=== PATIENT | male | born 1970 | race Hispanic/Latino ===

== ENCOUNTER 2017-09-06 08:12 | Emergency (ER) | payer MEDICARE ==
[2017-09-06 08:26] VITALS: BP 139/97
--- NOTE | 2017-09-06 09:03 | XRay Report ---
RIGHT SHOULDER, 3 VIEWS: HISTORY: right shoulder pain. Normal bone mineralization. No acute osseous injury or joint pathology is detected. The soft tissues are unremarkable. IMPRESSION: Right shoulder within normal limits.
[2017-09-06] MEDS ORDERED: MOTRIN ONE (11:14)
[2017-09-06] MEDS ORDERED: MOTRIN PO ONE (11:17)
--- NOTE | 2017-09-06 12:04 | Emergency Department Report ---
Upper Extremity - HPI Chief Complaint: Extremity Injury, Upper Stated Complaint: RIGHT SHOULDER INJURY Time Seen by Provider: 09/06/17 12:03 Upper Extremity: Right Shoulder (injury,pain) Occurred When: 1 Day Mechanism: Hyperextension, Twist Severity: severe Symptoms: Yes Pain with Movement (10/10, achy, right shoulder), Yes Limited Range of Movement (problems it rotated shoulder), No Deformity, No Numbness, No Weakness, No Swelling, No Bruising/Ecchymosis, No Laceration or Abrasion Other History: This is a 47-year-old male who presents at emergency room report that on 09/05/2017 he was throwing a can and he really hard and he started having pain in his right shoulder that radiated into his right neck. Pain is 10 out of 10 with movement but no pain without movement. Pain is achy. Denies headache. Denies any weakness, numbness or tingling to the distally. Patient with a history of diabetes GERD, PTSD, major depression, bipolar and has a history of right groin surgery. Denies any fever or chills. Denies any nausea or vomiting. Denies any chest pain or shortness of breath. He said he took lcyk-cal-hazpekw pain medication but it didn't help. ED Review of Systems ROS: Stated complaint: RIGHT SHOULDER INJURY Other details as noted in HPI Constitutional: denies: chills, fever Eyes: denies: eye pain, eye discharge ENT: denies: ear pain, throat pain Respiratory: denies: cough, shortness of breath, SOB with exertion, SOB at rest , stridor, wheezing Cardiovascular: denies: chest pain, palpitations, edema, syncope Gastrointestinal: denies: nausea, vomiting Musculoskeletal: arthralgia. denies: back pain, joint swelling, myalgia Skin: denies: rash, lesions Neurological: denies: headache, weakness, numbness, paresthesias ED Past Medical Hx - Past Medical History Previous Medical History?: Yes Hx Hypertension: No Hx Diabetes: No Hx GERD: Yes Hx Liver Disease: No Hx Renal Disease: No Hx Seizures: No Hx Psychiatric Treatment: Yes (PTSD (on disability for this),major depression, bipolar.) Additional medical history: pluerisy - Surgical History Past Surgical History?: Yes Additional Surgical History: groin sgx. - Family History Family history: hypertension - Social History Smoking Status: Former Smoker Substance Use Type: None - Medications Home Medications: Home Medications Medication Instructions Recorded Confirmed Last Taken Type Bactrim DS 1 tab PO BID 07/03/14 07/03/14 Unknown History Zantac 150 mg PO BID 07/03/14 07/03/14 Unknown History Zoloft 50 mg PO DAILY 07/03/14 07/03/14 Unknown History Effexor XR 37.5 mg PO DAILY 11/19/14 11/19/14 Unknown History Ranitidine HCl 150 mg PO BID 11/19/14 11/19/14 Unknown History Wellbutrin 150 mg PO DAILY 11/19/14 11/19/14 Unknown History Amoxicillin/K Clav Tab [Augmentin 1 tab PO Q12HR #20 tab 04/12/17 Unknown Rx 875 mg] Ibuprofen [Motrin] 600 mg PO Q8H PRN #15 tablet 09/06/17 Unknown Rx traMADol [Ultram 50 MG tab] 50 mg PO Q6HR PRN #12 tablet 09/06/17 Unknown Rx Upper Extremity Exam - Exam General: Vital signs noted. No distress. Alert and acting appropriately. This is a 47-year-old male well-nourished well-developed in no acute distress. Head and Torso: No HEENT Abnormality, No Neck Tenderness, No Chest/Lungs Abnormality, No Abdominal Tenderness, No Back Tenderness Shoulder Exam: Yes Shoulder Tenderness (tender to palpate the right shoulder.), Yes Normal Range of Motion in Shoulder (patient has full range of motion but he reports pain with rotating shoulder.), No Clavicle Tenderness, No Shoulder Deformity, No AC Joint Tenderness Arm Exam: No Arm/Humerus Tenderness, No Arm Deformity Elbow: Yes Normal Range of Motion in Elbow, No Elbow Tenderness, No Elbow Deformity Forearm: No Forearm Tenderness, No Forearm Deformity, No Pain with Pronation, No Pain with Supination Wrist: Yes Normal ROM in Wrist, No Wrist Tenderness, No Wrist Deformity, No Snuffbox Tenderness, No Pain with Axial Thumb Compression Hand: Yes Digit Tenderness, Yes Normal ROM in Digit(s), No Hand Tenderness, No Hand Deformity, No Digit(s) Deformity, No Tendon Dysfunction CMS Exam: Yes Normal Distal Pulses (radial and ulnar pulses bilaterally 2+ Dilantin), Yes Normal Capillary Refill (less than 3 seconds), Yes Normal Distal Sensation (no motor or sensory deficit), No Broken Skin ED Course Vital Signs 09/06/17 08:21 Temperature 98.5 F Pulse Rate 64 Respiratory 20 Rate Blood Pressure 139/97 O2 Sat by Pulse 100 Oximetry - Reevaluation(s) Reevaluation #1: 09/06/17 13:25 She received Motrin 800 mg at first which she said didn't help so he received [place] 5/325 2 tablets by mouth which helped his pain and he was given a shoulder sling. referred to procedure note for details - Orthopedic Splinting/Casting Injury #1 Side: right Upper Extremity Injury Location: shoulder Upper Extremity Immobilizer: sling/shoulder immobilize Additional Comments: Radial and ulnar pulses 2+ bilaterally. Patient with good color, sensation, movement and temperature to bilateral upper extremity ED Medical Decision Making - Radiology Data Radiology results: report reviewed Patient had x-ray two-view right shoulder which was dictated by radiologist and report reviewed by myself and shows no acute findings. See details of report below Patient: PA MUÑIZ MR#: [id number] : 1970 Acct:[id number] Age/Sex: 47 / M ADM Date: 09/06/17 Loc: ED Attending Dr: Ordering Physician: KEL BETTS Date of Service: 09/06/17 Procedure(s): XR shoulder 2+V RT Accession Number(s): [id number] cc: KEL BETTS Fluoro Time In Minutes: RIGHT SHOULDER, 3 VIEWS: HISTORY: right shoulder pain. Normal bone mineralization. No acute osseous injury or joint pathology is detected. The soft tissues are unremarkable. IMPRESSION: Right shoulder within normal limits. Transcribed By: TTR Dictated By: MILVIA SHEN JR, MD Electronically Authenticated By: MILVIA SHEN JR, MD Signed Date/Time: 09/06/17851 DD/ 1 TD/TT: 09/06/17851 - Medical Decision Making This is a 47-year-old male here reported that she injured his right shoulder yesterday after throwing can. He said he threw the can really hard and he felt a pop. He is reporting pain does radiate up his neck from his shoulder joint. He is not having any other symptoms. He took [id number] medication but it didn't help so he is here to be evaluated This patient was seen by myself and examined . Patient with full range of motion to shoulders etc. he has pain rotating his right shoulder otherwise exam is normal. X-ray two-view right shoulder dictated by radiologist and report reviewed by myself and shows no acute bony abnormality. This was discussed with patient and he voiced understanding. Patient to follow-up with orthopedic and his pain is controlled with medication A/P 1: Shoulder sprain, right-referral to orthopedic doctor, shoulder sling placed to right shoulder. Rice therapy explained 2: Right shoulder arthralgia-patient given Motrin 800 mg by mouth and then [place] 5/325 2 tablets by mouth because he said the Motrin didn't help. Pain is now controlled. He'll be discharged home on Ultram and Motrin Prescription given for Motrin and Ultram as needed Patient educated on medication, Rice therapy, diagnosis, x-ray reports and treatment plan and if he continues to have pain she needs to follow-up with orthopedic doctor. Patient discharged home in stable condition with his family member to follow up with orthopedic doctor in 2-3 days and/or to return to the emergency room if her condition worsens. His vital signs are stable and afebrile. Patient is feeling better. I discussed with him that if his condition worsens to return to the emergency room otherwise follow-up with orthopedic doctor and he voiced understanding. - Differential Diagnosis shoulder fracture, rotator cuff injury, shoulder sprain, musculoskeletal pa Critical care attestation.: If time is entered above; I have spent that time in minutes in the direct care of this critically ill patient, excluding procedure time. ED Disposition Clinical Impression: Arthralgia of right shoulder region Sprain of shoulder, right Qualifiers: Encounter type: initial encounter Shoulder sprain type: unspecified sprain Qualified Code(s): S43.401A - Unspecified sprain of right shoulder joint, initial encounter Disposition: TO HOME OR SELFCARE Is pt being admited?: No Does the pt Need Aspirin: No Condition: Stable Instructions: Musculoskeletal Pain (ED), RICE Therapy (ED), Shoulder Sprain (ED ) Additional Instructions: Please follow up with orthopedic doctor in 2-[address] heavy machinery while taking Ultram and take this medication for severe pain. This medication causes drowsiness Take Motrin for moderate pain See discharge instruction in Rice therapy Prescriptions: Ibuprofen [Motrin] 600 mg PO Q8H PRN #15 tablet PRN Reason: mild to moderate pain traMADol [Ultram 50 MG tab] 50 mg PO Q6HR PRN #12 tablet PRN Reason: Pain , Severe (7-10) Referrals: PRIMARY CARE, [Primary Care Provider] - 2-3 Days EBEN WALKER MD [Staff Physician] - 2-3 Days Forms: Accompanied Note
[2017-09-06] MEDS ORDERED: NORCO 5/325 PO ONE (12:13)
== END 2017-09-06 13:45 | disposition home or self-care (01) ==
LOC: ED 08:12
DX: S43.401A Unspecified sprain of right shoulder joint, initial encounter (principal); K21.9 Gastro-esophageal reflux disease without esophagitis; F31.9 Bipolar disorder, unspecified; Z87.891 Personal history of nicotine dependence; X58.XXXA Exposure to other specified factors, initial encounter; Y93.89 Activity, other specified; Y99.8 Other external cause status; Y92.89 Other specified places as the place of occurrence of the external cause

== ENCOUNTER 2017-09-07 21:49 | Emergency (ER) | payer MEDICARE ==
[2017-09-07] MEDS ORDERED: NACL 0.9% 1000 ML 1,000 ML IV ONE (22:59)
[2017-09-08 00:01] LABS: Bacteria,Urine 1+ /HPF (Negative); Bilirubin,Urine NEG (Negative); Blood,Urine NEG (Negative); Color,Urine Yellow (Yellow); Mucus,Urine FEW /HPF; Protein,Urine <15 mg/dL mg/dL (Negative); Urobilinogen,Urine < 2.0 mg/dL (<2.0)
[2017-09-08 00:08] LABS: Amphetamine Screen,Urine PRESUMPTIVE NEGATIVE; Benzodiazepines Screen,Urine PRESUMPTIVE NEGATIVE; Cannabinoid Screen,Urine PRESUMPTIVE NEGATIVE; Opiate Screen,Urine PRESUMPTIVE NEGATIVE
[2017-09-08 00:26] LABS: Cocaine Screen,Urine PRESUMPTIVE POSITIVE; Methadone Screen,Urine PRESUMPTIVE POSITIVE
[2017-09-08 00:40] LABS: Basophils # (Auto) 0.1 K/mm3 (0.0-0.1); Basophils % (Auto) 0.9 % (0.0-1.8); Eosinophils % (Auto) 0.5 % (0.0-4.3); Hematocrit 42.8 % (35.5-45.6); Hemoglobin 14.4 gm/dl (11.8-15.2); Lymphocytes % (Auto) 20.2 % (13.4-35.0); Mean Corpuscular HGB Conc 34 % (32-34); Mean Corpuscular Hemoglobin 28 pg (28-32); Mean Corpuscular Volume 84 fl (84-94); Monocytes # (Auto) 0.6 K/mm3 (0.0-0.8); Monocytes % (Auto) 6.6 % (0.0-7.3); Platelet Count 221 K/mm3 (140-440); Red Blood Count 5.12 M/mm3 (3.65-5.03); Red Cell Distribution Width 15.1 % (13.2-15.2)
[2017-09-08 00:43] VITALS: BP 132/93
[2017-09-08 00:57] LABS: INR 0.9 (0.87-1.13)
[2017-09-08 00:58] LABS: Partial Thromboplastin Time 27.2 Sec. (24.2-36.6)
--- NOTE | 2017-09-08 01:33 | Emergency Department Report ---
ED General Adult HPI - General Chief complaint: Weakness Stated complaint: CHEST PAIN Time Seen by Provider: 09/07/17 21:59 Source: patient Mode of arrival: Ambulatory Limitations: No Limitations - History of Present Illness Initial comments: Disposition Orellana promising that he does not feel well. Patient took 12 tablets of Ultram over the last 8 hours along with taking a gram of cocaine and drinking a beer. Patient states that he is not suicidal or homicidal and did this to get high. Patient has no other complaints and denies chest pain, abdominal pain, headache. Severity scale (0 -10): 0 Improves with: none Worsens with: none Associated Symptoms: denies other symptoms Treatments Prior to Arrival: none - Related Data Home Medications Medication Instructions Recorded Confirmed Last Taken No Known Home Medications [No 09/07/17 09/07/17 Unknown Reported Home Medications] Allergies Allergy/AdvReac Type Severity Reaction Status Date / Time aripiprazole [From Abilify] Allergy Unknown Verified 09/06/17 12:14 fluphenazine enanthate Allergy Unknown Verified 09/06/17 12:14 [From Prolixin] fluphenazine HCl Allergy Unknown Verified 09/06/17 12:14 [From Prolixin] haloperidol [From Haldol] Allergy Unknown Verified 09/06/17 12:14 haloperidol lactate Allergy Unknown Verified 09/06/17 12:14 [From Haldol] olanzapine [From Zyprexa] Allergy Unknown Verified 09/06/17 12:14 Penicillins Allergy Unknown Verified 09/06/17 12:14 ziprasidone HCl [From Geodon] Allergy Unknown Verified 09/06/17 12:14 ziprasidone mesylate Allergy Unknown Verified 09/06/17 12:14 [From Geodon] ED Review of Systems ROS: Stated complaint: CHEST PAIN Other details as noted in HPI Comment: All other systems reviewed and negative Constitutional: denies: chills, fever Eyes: denies: eye pain, eye discharge, vision change ENT: denies: ear pain, throat pain Respiratory: denies: cough, shortness of breath, wheezing Cardiovascular: denies: chest pain, palpitations Endocrine: no symptoms reported Gastrointestinal: denies: abdominal pain, nausea, diarrhea Genitourinary: denies: urgency, dysuria Musculoskeletal: denies: back pain, joint swelling, arthralgia Skin: denies: rash, lesions Neurological: denies: headache, weakness, paresthesias Psychiatric: denies: anxiety, depression Hematological/Lymphatic: denies: easy bleeding, easy bruising ED Past Medical Hx - Past Medical History Previous Medical History?: Yes Hx Hypertension: No Hx Diabetes: No Hx GERD: Yes Hx Liver Disease: No Hx Renal Disease: No Hx Seizures: No Hx Psychiatric Treatment: Yes (PTSD (on disability for this),major depression, bipolar.) Additional medical history: pluerisy - Surgical History Past Surgical History?: Yes Additional Surgical History: groin sgx. - Social History Smoking Status: Smoker, Current Status Unknown Substance Use Type: Cocaine - Medications Home Medications: Home Medications Medication Instructions Recorded Confirmed Last Taken Type No Known Home Medications [No 09/07/17 09/07/17 Unknown History Reported Home Medications] ED Physical Exam - General Limitations: No Limitations General appearance: alert, in no apparent distress - Head Head exam: Present: atraumatic, normocephalic - Eye Eye exam: Present: normal appearance - ENT ENT exam: Present: mucous membranes moist - Neck Neck exam: Present: normal inspection - Respiratory Respiratory exam: Present: normal lung sounds bilaterally. Absent: respiratory distress, wheezes, rales, rhonchi - Cardiovascular Cardiovascular Exam: Present: regular rate, normal rhythm. Absent: systolic murmur, diastolic murmur, rubs, gallop - GI/Abdominal GI/Abdominal exam: Present: soft, normal bowel sounds. Absent: distended, tenderness - Rectal Rectal exam: Present: deferred - Extremities Exam Extremities exam: Present: normal inspection - Back Exam Back exam: Present: normal inspection - Neurological Exam Neurological exam: Present: alert, oriented X3, CN II-XII intact. Absent: motor sensory deficit - Psychiatric Psychiatric exam: Present: normal affect, normal mood - Skin Skin exam: Present: warm, dry, intact, normal color. Absent: rash ED Course Vital Signs 09/07/17 09/07/17 09/08/17 22:14 23:46 00:42 Temperature 98.0 F 97.3 F L Pulse Rate 81 80 62 Respiratory 18 18 Rate Blood Pressure 125/92 Blood Pressure 125/92 132/93 [Left] O2 Sat by Pulse 98 98 Oximetry ED Medical Decision Making - Lab Data Result diagrams: 09/08/17 00:06 09/08/17 00:06 - EKG Data EKG shows normal: sinus rhythm Rate: normal - EKG Data Interpretation: nonspecific ST-T wave wanda - Medical Decision Making Discussed results with the patient Spoke with patient about his combination of cocaine, Ultram, and beer not be in a good choice Critical care attestation.: If time is entered above; I have spent that time in minutes in the direct care of this critically ill patient, excluding procedure time. ED Disposition Clinical Impression: Cocaine abuse, Misuse of prescription only drugs Disposition: DC-01 TO HOME OR SELFCARE Is pt being admited?: No Does the pt Need Aspirin: No Condition: Stable Instructions: Polysubstance Abuse (ED) Referrals: PRIMARY CAREMD [Primary Care Provider] - 3-[address] [facility] [place] [Outside] - 3-5 Days [facility] [Outside] - 3-5 Days TRAVIS MINOR MD [Staff Physician] - 3-5 Days Time of Disposition: 02:06
[2017-09-08 01:36] LABS: Alanine Aminotransferase 25 units/L (7-56); Albumin 3.4 g/dL (3.9-5); BUN/Creatinine Ratio 13; Blood Urea Nitrogen 10 mg/dL (9-20); Hemolysis Index 6
== END 2017-09-08 02:51 | disposition home or self-care (01) ==
LOC: ED 21:49
DX: T40.4X1A Poisoning by other synthetic narcotics, accidental (unintentional), initial encounter (principal); F14.10 Cocaine abuse, uncomplicated; K21.9 Gastro-esophageal reflux disease without esophagitis; F32.9 Major depressive disorder, single episode, unspecified; F17.200 Nicotine dependence, unspecified, uncomplicated; Z88.8 Allergy status to other drugs, medicaments and biological substances; Z88.0 Allergy status to penicillin; Y92.89 Other specified places as the place of occurrence of the external cause
CPT/HCPCS: 36415; 80053; 80307; 81001; 85025; 85610; 85730; 93005; 93010; 99283; G0480; J7030; 80320

== ENCOUNTER 2018-12-15 04:15 | Observation (INO) | payer MEDICARE ==
[2018-12-15] MEDS ORDERED: SODIUM CHLORIDE 0.9% 500 ML 500 ML IV ONE (04:44)
[2018-12-15] MEDS ORDERED: ONDANSETRON 4 MG/2 ML INJ IV ONE (04:45)
[2018-12-15] MEDS ORDERED: PANTOPRAZOLE 40 MG INJ IV ONE (04:45)
[2018-12-15] MEDS ORDERED: MORPHINE 4 MG/1 ML INJ IV ONE (04:45)
--- NOTE | 2018-12-15 04:53 | Emergency Department Report ---
<OLINDA DUNN - Last Filed: 12/15/18 06:15> ED N/V/D HPI - General Chief complaint: GI Bleed Stated complaint: VOMITING Time Seen by Provider: 12/15/18 04:37 Source: patient Mode of arrival: Ambulatory Limitations: No Limitations - History of Present Illness Initial comments: Mr. Muñiz is a 48-year-old male with a history of esophagitis, PTSD, pleurisy who presents with heartburn, stomach upset, dark emesis just prior to arrival. Symptoms occurred during the morning 1.5 half hours ago. Mother contacted EMS. He vomited " pure Black". No gross blood. No previous history of GI bleed or transfusion. Recently several weeks ago, he had upper endoscopy performed at [facility]. Upper endoscopy revealed "swollen esophagus". Colonoscopy inconclusive according to his report. Since discharge from [facility], he has had benign diet mostly consisting of salads. Currently his stomach just feels raw. Upper endoscopy report, procedure performed July 2013, diagnoses: Non-erosive reflux disease, hiatus hernia, gastritis MD complaint: nausea, vomiting, abdominal pain -: Gradual, This morning Description of Vomiting: other (dark emesis) Associated Abdominal Pain: Yes Severity: moderate Quality: cramping Consistency: constant Improves with: none Worsens with: none Context: recent surgery/procedure (upper and lower endoscopy at [facility]), other (denies use of NSAIDs or aspirin) Associated Symptoms: denies other symptoms - Related Data Home Medications Medication Instructions Recorded Confirmed Last Taken No Known Home Medications [No 09/07/17 09/07/17 Unknown Reported Home Medications] Allergies Allergy/AdvReac Type Severity Reaction Status Date / Time aripiprazole [From Abilify] Allergy Unknown Verified 09/06/17 12:14 fluphenazine enanthate Allergy Unknown Verified 09/06/17 12:14 [From Prolixin] fluphenazine HCl Allergy Unknown Verified 09/06/17 12:14 [From Prolixin] haloperidol [From Haldol] Allergy Unknown Verified 09/06/17 12:14 haloperidol lactate Allergy Unknown Verified 09/06/17 12:14 [From Haldol] metoclopramide [From Reglan] Allergy Vomiting Verified 12/15/18 08:27 olanzapine [From Zyprexa] Allergy Unknown Verified 09/06/17 12:14 Penicillins Allergy Unknown Verified 09/06/17 12:14 ziprasidone HCl [From Geodon] Allergy Unknown Verified 09/06/17 12:14 ziprasidone mesylate Allergy Unknown Verified 09/06/17 12:14 [From Geodon] ED Review of Systems Comment: All other systems reviewed and negative Constitutional: denies: fever, malaise Cardiovascular: denies: chest pain Gastrointestinal: abdominal pain, nausea, vomiting ED Past Medical Hx - Past Medical History Previous Medical History?: Yes Hx Hypertension: No Hx Diabetes: No Hx GERD: Yes Hx Liver Disease: No Hx Renal Disease: No Hx Seizures: No Hx Psychiatric Treatment: Yes (PTSD (on disability for this),major depression, bipolar.) Additional medical history: pleurisy - Surgical History Past Surgical History?: Yes Additional Surgical History: groin sx ? - Social History Smoking Status: Never Smoker Substance Use Type: None - Medications Home Medications: Home Medications Medication Instructions Recorded Confirmed Last Taken Type No Known Home Medications [No 09/07/17 09/07/17 Unknown History Reported Home Medications] ED Physical Exam - General Limitations: No Limitations General appearance: alert, in no apparent distress, other (holding emesis bag containing 2 ounces of green liquid) - Head Head exam: Present: atraumatic, normocephalic - Eye Eye exam: Present: normal appearance - ENT ENT exam: Present: mucous membranes moist - Neck Neck exam: Present: normal inspection, full ROM - Respiratory Respiratory exam: Present: normal lung sounds bilaterally. Absent: respiratory distress, wheezes, rales, rhonchi - Cardiovascular Cardiovascular Exam: Present: regular rate, normal rhythm, normal heart sounds. Absent: systolic murmur, diastolic murmur, rubs, gallop - GI/Abdominal GI/Abdominal exam: Present: soft, normal bowel sounds. Absent: distended, tenderness, guarding, rebound - Rectal Rectal exam: Present: deferred - Extremities Exam Extremities exam: Present: normal inspection - Back Exam Back exam: Present: normal inspection - Neurological Exam Neurological exam: Present: alert, oriented X3 - Psychiatric Psychiatric exam: Present: normal affect, normal mood - Skin Skin exam: Present: warm, dry, intact, normal color. Absent: rash ED Medical Decision Making - Lab Data Result diagrams: 12/15/18 05:06 12/15/18 05:06 Laboratory Results - last 24 hr 12/15/18 12/15/18 05:06 05:06 WBC 20.4 H RBC 5.62 H Hgb 16.5 H Hct 48.7 H MCV 87 MCH 29 MCHC 34 RDW 15.0 Plt Count 261 Sodium 143 Potassium 4.8 Chloride 103.1 Carbon Dioxide 21 L Anion Gap 24 BUN 15 Creatinine 1.2 Estimated GFR > 60 BUN/Creatinine Ratio 13 Glucose 101 H Calcium 9.0 - Medical Decision Making Mr. Eduardo is a 48-year-old male with history of esophagitis, GERD, hiatal hernia who presents with dark emesis and stomach upset. No evidence of upper GI bleed. I did examine the emesis in the bag. No indication of hematemesis. He did not have continued vomiting in the emergency department. He received IV PPI protonix, IV analgesia and IV antiemetic During evaluation, I was informed by nurse that Mr. Muñiz developed right lower quadrant pain. On reexamination he has severe pain on his abdomen. He has vol untary guarding at the right lower quadrant. CBC notable for elevated white count 20,000. Concern for acute appendicitis. CT abdomen and pelvis has been ordered. Additional IV fluid and IV analgesia ordered. My colleague will determine final disposition. ED Disposition Clinical Impression: Acute abdominal pain, Nausea & vomiting, Leukocytosis Disposition: DC-01 TO HOME OR SELFCARE Is pt being admited?: No Does the pt Need Aspirin: No Condition: Fair Referrals: KARMA CESAR MD [Staff Physician] - 3-5 Days TYLER SANDOVAL DO [Staff Physician] - 3-5 Days Forms: Accompanied Note <GILMA THOMAS - Last Filed: 12/15/18 08:48> ED Review of Systems ROS: Stated complaint: VOMITING Other details as noted in HPI ED Course Vital Signs 12/15/18 12/15/18 12/15/18 04:20 04:38 04:46 Temperature 97.4 F L Pulse Rate 107 H 101 H 102 H Respiratory 18 25 H Rate Blood Pressure 125/101 132/102 O2 Sat by Pulse 95 95 Oximetry 12/15/18 12/15/18 12/15/18 05:00 05:16 05:30 Temperature Pulse Rate 98 H 102 H 84 Respiratory 28 H 19 25 H Rate Blood Pressure 132/102 134/85 130/86 O2 Sat by Pulse 94 95 96 Oximetry 12/15/18 12/15/18 12/15/18 05:46 06:00 06:55 Temperature Pulse Rate 93 H 92 H Respiratory 14 30 H 19 Rate Blood Pressure 130/86 131/86 O2 Sat by Pulse 93 93 Oximetry ED Medical Decision Making - Lab Data Result diagrams: 12/15/18 05:06 12/15/18 05:06 - Radiology Data Radiology results: report reviewed (CT abdomen and pelvis, pelvic ultrasound), image reviewed (CT abdomen and pelvis, pelvic ultrasound) [address] [address] Ultrasound Report Signed Patient: PA MUÑIZ MR#: [id number] 27 : 1970 Acct:[id number] Age/Sex: 48 / M ADM Date: 12/15/18 Loc: ED Attending Dr: Ordering Physician: GILMA THOMAS MD Date of Service: 12/15/18 Procedure(s): US abdomen limited Accession Number(s): [id number] cc: GILMA THOMAS MD LIMITED RUQ ABDOMINAL ULTRASOUND INDICATION: Right upper quadrant pain and vomiting for one day. COMPARISON: CT abdomen and pelvis with contrast dated 12/15/2018. FINDINGS: Pancreas: Visualized portions show no significant abnormality. Abdominal Aorta: No significant abnormality. IVC: No significant abnormality. Liver: The liver measures 12.7 cm in length. No significant abnormality. Normal hepatopedal blood flow in the main portal vein. Gallbladder: There is a mild degree of sludge in the gallbladder. No shadowing gallstones are identified. Gallbladder wall thickness measures 2.4 mm.. Bile ducts: No significant abnormality. Common bile duct measures 4.3 mm. Right kidney: No significant abnormality visualized.. Free fluid: None. Additional Findings: None. IMPRESSION: Mild degree of sludge in the gallbladder. No findings to suggest acute cholecystitis.. Signer Name: Ovidio Guajardo Jr, MD Signed: 12/15/2018 8:39 AM Workstation Name: [id number] Transcribed By: TTR Dictated By: OVIDIO GUAJARDO JR, MD Electronically Authenticated By: OVIDIO GUAJARDO JR, MD Signed Date/Time: 12/15/1839 DD/ 6 TD/TT: [address] [address] Cat Scan Report Signed Patient: PA MUÑIZ MR#: [id number] 27 : 1970 Acct:[id number] Age/Sex: 48 / M ADM Date: 12/15/18 Loc: ED Attending Dr: Ordering Physician: Olinda Hsieh MD Date of Service: 12/15/18 Procedure(s): CT abdomen pelvis w con Accession Number(s): [id number] cc: Olinda Hsieh MD CT ABDOMEN AND PELVIS WITH CONTRAST INDICATION / CLINICAL INFORMATION: RLQ pain. TECHNIQUE: Axial CT images were obtained through the abdomen and pelvis after 100 mL Omnipaque [address] scans at this location are performed using CT dose reduction for ALARA by means of automated exposure control. COMPARISON: None available. FINDINGS: LOWER CHEST: No significant abnormality. LIVER: Small cyst in the inferior right lobe. GALLBLADDER: No significant abnormality. BILE DUCTS: No significant abnormality. PANCREAS: No significant abnormality. SPLEEN: No significant abnormality. ADRENALS: No significant abnormality. RIGHT KIDNEY and URETER: No significant abnormality. LEFT KIDNEY and URETER: No significant abnormality. STOMACH and SMALL BOWEL: No significant abnormality. COLON: Mild diverticulosis without acute inflammation. APPENDIX: No significant abnormality. PERITONEUM: No free fluid. No free air. No fluid collection. LYMPH NODES: No significant adenopathy. AORTA and ARTERIES: No significant abnormality. IVC and VEINS: No significant abnormality. URINARY BLADDER: No significant abnormality. REPRODUCTIVE ORGANS: No significant abnormality. ADDITIONAL FINDINGS: None. SKELETAL SYSTEM: No significant abnormality. IMPRESSION: 1. No inflammatory process or bowel obstruction. Normal appendix. 2. No urinary tract stones or hydronephrosis. Signer Name: Jenny Mckay MD Signed: 12/15/2018 6:40 AM Workstation Name: [id number] Transcribed By: DT Dictated By: Rory Mckay MD Electronically Authenticated By: Rory Mckay MD Signed Date/Time: 12/15/18639 DD/ TD/TT: Critical care attestation.: If time is entered above; I have spent that time in minutes in the direct care of this critically ill patient, excluding procedure time. ED Disposition Is pt being admited?: Yes Does the pt Need Aspirin: No Time of Disposition: 08:48 (hospitalist paged)
[2018-12-15 05:25] LABS: Hematocrit 48.7 % (35.5-45.6); Hemoglobin 16.5 gm/dl (11.8-15.2); Mean Corpuscular HGB Conc 34 % (32-34); Mean Corpuscular Volume 87 fl (84-94); Platelet Count 261 K/mm3 (140-440); Red Blood Count 5.62 M/mm3 (3.65-5.03)
[2018-12-15 05:38] LABS: BUN/Creatinine Ratio 13; Blood Urea Nitrogen 15 mg/dL (9-20); Hemolysis Index 3
[2018-12-15] MEDS ORDERED: HYDROmorphone 1 MG/1 ML INJ IV ONE (05:54)
[2018-12-15] MEDS ORDERED: SODIUM CHLORIDE 0.9% 1000 ML 1,000 ML IV ONE (05:57)
[2018-12-15 06:35] LABS: Anisocytosis Few; Basophils % (Manual) 0 % (0.0-1.8); Eosinophils % (Manual) 0 % (0.0-4.3); Platelet Estimate Consistent w Auto; Total Cells Counted 100
--- NOTE | 2018-12-15 06:45 | Cat Scan Report ---
CT ABDOMEN AND PELVIS WITH CONTRAST INDICATION / CLINICAL INFORMATION: RLQ pain. TECHNIQUE: Axial CT images were obtained through the abdomen and pelvis after 100 mL Omnipaque [address] scans at this location are performed using CT dose reduction for ALARA by means of automated exposure control. COMPARISON: None available. FINDINGS: LOWER CHEST: No significant abnormality. LIVER: Small cyst in the inferior right lobe. GALLBLADDER: No significant abnormality. BILE DUCTS: No significant abnormality. PANCREAS: No significant abnormality. SPLEEN: No significant abnormality. ADRENALS: No significant abnormality. RIGHT KIDNEY and URETER: No significant abnormality. LEFT KIDNEY and URETER: No significant abnormality. STOMACH and SMALL BOWEL: No significant abnormality. COLON: Mild diverticulosis without acute inflammation. APPENDIX: No significant abnormality. PERITONEUM: No free fluid. No free air. No fluid collection. LYMPH NODES: No significant adenopathy. AORTA and ARTERIES: No significant abnormality. IVC and VEINS: No significant abnormality. URINARY BLADDER: No significant abnormality. REPRODUCTIVE ORGANS: No significant abnormality. ADDITIONAL FINDINGS: None. SKELETAL SYSTEM: No significant abnormality. IMPRESSION: 1. No inflammatory process or bowel obstruction. Normal appendix. 2. No urinary tract stones or hydronephrosis. Signer Name: Jenny Mckay MD Signed: 12/15/2018 6:40 AM Workstation Name: [id number]
[2018-12-15] MEDS ORDERED: METOCLOPRAMIDE 10 MG/2 ML INJ IV ONE (07:35)
[2018-12-15] MEDS ORDERED: fentaNYL 100 MCG/2 ML INJ IV ONE (07:35)
--- NOTE | 2018-12-15 08:43 | Ultrasound Report ---
LIMITED RUQ ABDOMINAL ULTRASOUND INDICATION: Right upper quadrant pain and vomiting for one day. COMPARISON: CT abdomen and pelvis with contrast dated 12/15/2018. FINDINGS: Pancreas: Visualized portions show no significant abnormality. Abdominal Aorta: No significant abnormality. IVC: No significant abnormality. Liver: The liver measures 12.7 cm in length. No significant abnormality. Normal hepatopedal blood fl ow in the main portal vein. Gallbladder: There is a mild degree of sludge in the gallbladder. No shadowing gallstones are identif ied. Gallbladder wall thickness measures 2.4 mm.. Bile ducts: No significant abnormality. Common bile duct measures 4.3 mm. Right kidney: No significant abnormality visualized.. Free fluid: None. Additional Findings: None. IMPRESSION: Mild degree of sludge in the gallbladder. No findings to suggest acute cholecystitis.. Signer Name: Ovidio Guajardo Jr, MD Signed: 12/15/2018 8:39 AM Workstation Name: [id number]
--- NOTE | 2018-12-15 10:06 | History and Physical Report ---
History of Present Illness Date of examination: 12/15/18 Date of admission: 12/15/18 08:51 Chief complaint: Coffee ground emesis/nausea vomiting/abdominal pain History of present illness: 48-year-old male pt with a history of esophagitis, PTSD, presented to the [facility] room with abdominal pain nausea vomiting, coffee-ground emesis multiple times this morning prior to arrival. Mother called EMS. Patient had no symptoms in the past, seen GI doctor Lonnie had EGD which revealed nonerosive reflux disease hiatal hernia and gastritis Patient also had upper endoscopy recently and [facility] a couple of months ago, reports inflamed/swollen esophagus. Colonoscopy per preparation. Patient has intermittent coffee-ground emesis denies hematemesis or melena or r ectal bleeding Complaints of abdominal pain nausea vomiting First set of H&H within normal limits, hemodynamically stable Past History Past Medical History: GERD, other (upper GI bleeding/esophagitis) Past Surgical History: denies: No surgical history Social history: lives with family, smoking (chews tobacco), alcohol abuse, other (cocaine) Family history: hypertension Medications and Allergies Allergies Allergy/AdvReac Type Severity Reaction Status Date / Time aripiprazole [From Abilify] Allergy Unknown Verified 09/06/17 12:14 fluphenazine enanthate Allergy Unknown Verified 09/06/17 12:14 [From Prolixin] fluphenazine HCl Allergy Unknown Verified 09/06/17 12:14 [From Prolixin] haloperidol [From Haldol] Allergy Unknown Verified 09/06/17 12:14 haloperidol lactate Allergy Unknown Verified 09/06/17 12:14 [From Haldol] metoclopramide [From Reglan] Allergy Vomiting Verified 12/15/18 08:27 olanzapine [From Zyprexa] Allergy Unknown Verified 09/06/17 12:14 Penicillins Allergy Unknown Verified 09/06/17 12:14 ziprasidone HCl [From Geodon] Allergy Unknown Verified 09/06/17 12:14 ziprasidone mesylate Allergy Unknown Verified 09/06/17 12:14 [From Geodon] Home Medications Medication Instructions Recorded Confirmed Last Taken Type No Known Home Medications [No 09/07/17 09/07/17 Unknown History Reported Home Medications] Review of Systems Constitutional: no weight loss, no weight gain Ears, nose, mouth and throat: no nasal congestion, no nasal discharge Cardiovascular: no chest pain, no orthopnea Respiratory: no cough, no shortness of breath Gastrointestinal: abdominal pain, nausea, vomiting, diarrhea, coffee ground emesis, no hematemesis, no melena, no hematochezia Genitourinary Male: no dysuria, no hematuria Musculoskeletal: no myalgias, no arthritis Integumentary: no rash, no lesions Neurological: no seizures, no syncope Psychiatric: no anxiety, no depression Endocrine: no cold intolerance, no heat intolerance Hematologic/Lymphatic: no easy bruising, no easy bleeding Allergic/Immunologic: no urticaria, no allergic rhinitis Exam - Constitutional Vitals: Temp Pulse Resp BP Pulse Ox 97.4 F L 77 17 137/69 100 12/15/18 04:20 12/15/18 08:30 12/15/18 08:30 12/15/18 08:30 12/15/18 08:30 General appearance: Present: mild distress, well-nourished - EENT Eyes: Present: PERRL, EOM intact - Neck Neck: Present: supple, normal ROM - Respiratory Respiratory effort: normal Respiratory: bilateral: diminished, negative: rales, rhonchi, wheezing - Cardiovascular Rhythm: regular Heart Sounds: Present: S1 & S2 - Extremities Extremities: no ischemia, No edema - Abdominal General gastrointestinal: Present: soft, non-tender, non-distended, normal bowel sounds - Integumentary Integumentary: Present: clear, warm - Musculoskeletal Musculoskeletal: strength equal bilaterally, generalized weakness - Psychiatric Psychiatric: appropriate mood/affect, cooperative - Neurologic Neurologic: moves all extremities Results - Labs CBC & Chem 7: 12/15/18 05:06 12/15/18 05:06 Labs: Abnormal lab results 12/15/18 12/15/18 Range/Units 05:06 05:06 WBC 20.4 H (4.5-11.0) K/mm3 RBC 5.62 H (3.65-5.03) M/mm3 Hgb 16.5 H (11.8-15.2) gm/dl Hct 48.7 H (35.5-45.6) % Seg Neuts % (Manual) 94.0 H (40.0-70.0) % Lymphocytes % (Manual) 3.0 L (13.4-35.0) % Seg Neutrophils # Man 19.2 H (1.8-7.7) K/mm3 Lymphocytes # (Manual) 0.6 L (1.2-5.4) K/mm3 Carbon Dioxide 21 L (22-30) mmol/L Glucose 101 H (75-100) mg/dL Assessment and Plan --Possible upper GI bleeding/coffee-ground emesis; Clear liquid diet, IV Protonix, GI consult Request medical records from [place] Monitor H&H, transfuse as needed --Abdominal pain; possible colitis In the setting of leukocytosis, possible colitis CT abdomen, ultrasound abdomen no acute abnormalities Empiric antibiotics Levaquin and Flagyl GI consult --Leukocytosis; possible colitis Continue empiric antibiotics Follow clinically --Substance abuse; tobacco, alcohol, cocaine Strongly advised to quit recreational drug use Smoking cessation, advised to quit alcohol intake Monitor for alcohol withdrawal symptoms --DVT prophylaxis; SCD Monitor closely and adjust the management as needed Plan of care is reviewed with the patient and his nurse Follow GI evaluation and recommendations Discharge home when stable
[2018-12-15] MEDS: MORPHINE 2 MG/1 ML INJ IV PRN ×3 (10:20→23:33)
[2018-12-15] MEDS: SODIUM CHLORIDE 0.9% 1000 ML 1,000 ML IV SCH (12:15)
[2018-12-15] MEDS: metroNIDAZOLE/NS 500 MG/100 ML 500 MG/100 ML BAG IV SCH ×2 (14:00→21:14)
[2018-12-15] MEDS ORDERED: PIPERACIL/TAZOBACTA 4.5/NS 100 4.5 GM/100 ML VIAL IV SCH (14:00)
[2018-12-15] MEDS: ONDANSETRON 4 MG/2 ML INJ IV PRN ×3 (14:25→23:33)
--- NOTE | 2018-12-15 20:01 | Gastroenterology Consultation ---
History of Present Illness - Reason for Consult Consult date: 12/15/18 nausea/vomiting/CGE Requesting physician: ALEKSANDR FU - History of Present Illness This is a 48 yo male with h/o alcohol use and GERD admitted for nausea/vomiting and coffee ground emesis since yesterday. He reports having similar symptoms and diarrhea with black stool about 1 month ago and was admitted at [place]. He had EGD, which showed inflammation in the esophagus with swelling. Colonoscopy was incomplete due to poor prep. He reports having been on blend diet since then. Yesterday, he had nausea with multiple episode of vomiting followed by coffee ground material. He denies recurrent diarrhea or constipation. No BM o/n. Reports RUQ abdominal pain. He feels like the vomiting is with food that was ingested the day prior and there is something blocking in the stomach. Denies any NSAID use or marijauna use. Medication list reviewed. Past History Past Medical History: GERD, other (upper GI bleeding/esophagitis) Past Surgical History: denies: No surgical history Social history: lives with family, smoking (chews tobacco), alcohol abuse, other (cocaine) Family history: hypertension Medications and Allergies Allergies Allergy/AdvReac Type Severity Reaction Status Date / Time aripiprazole [From Abilify] Allergy Unknown Verified 09/06/17 12:14 fluphenazine enanthate Allergy Unknown Verified 09/06/17 12:14 [From Prolixin] fluphenazine HCl Allergy Unknown Verified 09/06/17 12:14 [From Prolixin] haloperidol [From Haldol] Allergy Unknown Verified 09/06/17 12:14 haloperidol lactate Allergy Unknown Verified 09/06/17 12:14 [From Haldol] metoclopramide [From Reglan] Allergy Vomiting Verified 12/15/18 08:27 olanzapine [From Zyprexa] Allergy Unknown Verified 09/06/17 12:14 Penicillins Allergy Unknown Verified 09/06/17 12:14 ziprasidone HCl [From Geodon] Allergy Unknown Verified 09/06/17 12:14 ziprasidone mesylate Allergy Unknown Verified 09/06/17 12:14 [From Geodon] Home Medications Medication Instructions Recorded Confirmed Last Taken Type No Known Home Medications [No 09/07/17 09/07/17 Unknown History Reported Home Medications] Active Meds: Active Medications Sodium Chloride (Nacl 0.9% 1000 Ml) 1,000 mls @ 100 mls/hr IV DIRECT GILBERT Last Admin: 12/15/18 12:15 Dose: 100 mls/hr Documented by: Levofloxacin/Dextrose (Levaquin 750mg/150ml) 750 mg in 150 mls @ 100 mls/hr IV Q24HR GILBERT Last Admin: 12/15/18 12:15 Dose: 100 mls/hr Documented by: Metronidazole (Flagyl 500 Mg/100 Ml) 500 mg in 100 mls @ 100 mls/hr IV Q8HR GILBERT; Protocol Morphine Sulfate (Morphine) 2 mg IV Q4H PRN PRN Reason: Pain, Moderate (4-6) Last Admin: 12/15/18 19:30 Dose: 2 mg Documented by: Ondansetron HCl (Zofran) 4 mg IV Q4H PRN PRN Reason: Nausea And Vomiting Last Admin: 12/15/18 19:30 Dose: 4 mg Documented by: Pantoprazole Sodium (Protonix) 40 mg IV QDAY [facility] Review of Systems - Review of Systems All systems: negative Constitutional: weight loss Cardiovascular: no chest pain Gastrointestinal: abdominal pain, nausea, vomiting, coffee ground emesis, no diarrhea, no constipation Neurological: weakness Exam - Constitutional Vital Signs: Temp Pulse Resp BP Pulse Ox 97.9 F 73 18 129/85 83 L 12/15/18 12:01 12/15/18 12:01 12/15/18 12:01 12/15/18 18:21 12/15/18 18:21 General appearance: no acute distress - EENT Eyes: EOM intact ENT: hearing intact - Neck Neck: supple - Respiratory Respiratory effort: normal - Cardiovascular Rhythm: regular Heart Sounds: Present: S1 & S2 - Gastrointestinal General gastrointestinal: Present: soft, tender, non-distended, normal bowel sounds - Integumentary Integumentary: Present: clear, warm - Neurologic Neurological: alert and oriented x3 - Labs CBC & Chem 7: 12/15/18 05:06 12/15/18 05:06 Lab Results: Laboratory Results - last 24 hr 12/15/18 12/15/18 05:06 05:06 WBC 20.4 H RBC 5.62 H Hgb 16.5 H Hct 48.7 H MCV 87 MCH 29 MCHC 34 RDW 15.0 Plt Count 261 Add Manual Diff Complete Total Counted 100 Seg Neuts % (Manual) 94.0 H Band Neutrophils % 0 Lymphocytes % (Manual) 3.0 L Reactive Lymphs % (Man) 0 Monocytes % (Manual) 3.0 Eosinophils % (Manual) 0 Basophils % (Manual) 0 Metamyelocytes % 0 Myelocytes % 0 Promyelocytes % 0 Blast Cells % 0 Nucleated RBC % Not Reportable Seg Neutrophils # Man 19.2 H Band Neutrophils # 0.0 Lymphocytes # (Manual) 0.6 L Abs React Lymphs (Man) 0.0 Monocytes # (Manual) 0.6 Eosinophils # (Manual) 0.0 Basophils # (Manual) 0.0 Metamyelocytes # 0.0 Myelocytes # 0.0 Promyelocytes # 0.0 Blast Cells # 0.0 WBC Morphology Not Reportable Hypersegmented Neuts Not Reportable Hyposegmented Neuts Not Reportable Hypogranular Neuts Not Reportable Smudge Cells Not Reportable Toxic Granulation Not Reportable Toxic Vacuolation Not Reportable Dohle Bodies Not Reportable Pelger-Huet Anomaly Not Reportable Yue Rods Not Reportable Platelet Estimate Consistent w auto Clumped Platelets Not Reportable Plt Clumps, EDTA Not Reportable Large Platelets Not Reportable Giant Platelets Not Reportable Platelet Satelliting Not Reportable Plt Morphology Comment Not Reportable RBC Morphology Not Reportable Dimorphic RBCs Not Reportable Polychromasia Not Reportable Hypochromasia Not Reportable Poikilocytosis Not Reportable Anisocytosis Few Microcytosis Not Reportable Macrocytosis Not Reportable Spherocytes Not Reportable Pappenheimer Bodies Not Reportable Sickle Cells Not Reportable Target Cells Not Reportable Tear Drop Cells Not Reportable Ovalocytes Not Reportable Helmet Cells Not Reportable [place] Bodies Not Reportable [place] Rings Not Reportable Elijah Cells Not Reportable Bite Cells Not Reportable Crenated Cell Not Reportable Elliptocytes Not Reportable Acanthocytes (Spur) Not Reportable Rouleaux Not Reportable Hemoglobin C Crystals Not Reportable Schistocytes Not Reportable Malaria parasites Not Reportable Francis Bodies Not Reportable Hem Pathologist Commnt No Sodium 143 Potassium 4.8 Chloride 103.1 Carbon Dioxide 21 L Anion Gap 24 BUN 15 Creatinine 1.2 Estimated GFR > 60 BUN/Creatinine Ratio 13 Glucose 101 H Calcium 9.0 Assessment and Plan # Intractable nausea/vomiting # Coffee ground emesis # RUQ pain. - recent admission at [place] for similar symptoms. EGD with what sounds like esophagitis. - Normal H/H and elevated wbc - CT a/p without any acute abnormalities. - US with sludge in GB. - currently on empiric abx (unclear given no signs of colitis or diarrhea) - etiology ddx including esophagitis, gastroparesis, vs biliary with sludge. Rec - no plans for endoscopy with normal H/H and report of recent EGD 1 month ago. obtain records from [place]. - cont with supportive care. - antiemetics prn. can add reglan prn. - protonix bid. - add sucralfate. - if symptoms persist, consider surgery consult for CCK. - will follow.
[2018-12-15] MEDS: SUCRALFATE 1 GM/10 ML ORAL LIQD PO SCH (21:13)
[2018-12-15] MEDS: diphenhydrAMINE 50 MG/ML VIAL IV PRN (23:32)
[2018-12-16] MEDS: SODIUM CHLORIDE 0.9% 1000 ML 1,000 ML IV SCH ×2 (02:59→14:12)
[2018-12-16 05:36] LABS: Basophils # (Auto) 0.1 K/mm3 (0.0-0.1); Basophils % (Auto) 1.1 % (0.0-1.8); Eosinophils # (Auto) 0.2 K/mm3 (0.0-0.4); Eosinophils % (Auto) 2.9 % (0.0-4.3); Hematocrit 40.8 % (35.5-45.6); Hemoglobin 13.9 gm/dl (11.8-15.2); Lymphocytes # (Auto) 1.9 K/mm3 (1.2-5.4); Lymphocytes % (Auto) 29.7 % (13.4-35.0); Mean Corpuscular HGB Conc 34 % (32-34); Mean Corpuscular Volume 87 fl (84-94); Monocytes # (Auto) 0.7 K/mm3 (0.0-0.8); Monocytes % (Auto) 10.2 % (0.0-7.3); Platelet Count 191 K/mm3 (140-440); Red Blood Count 4.68 M/mm3 (3.65-5.03); Red Cell Distribution Width 15.3 % (13.2-15.2)
[2018-12-16 05:43] LABS: Alanine Aminotransferase 34 units/L (7-56); Albumin 3.4 g/dL (3.9-5); BUN/Creatinine Ratio 11; Blood Urea Nitrogen 11 mg/dL (9-20); Calcium 7.9 mg/dL (8.4-10.2); Hemolysis Index 5
[2018-12-16] MEDS: metroNIDAZOLE/NS 500 MG/100 ML 500 MG/100 ML BAG IV SCH (05:52)
[2018-12-16] MEDS: SUCRALFATE 1 GM/10 ML ORAL LIQD PO SCH ×4 (08:40→21:33)
[2018-12-16] MEDS: MORPHINE 2 MG/1 ML INJ IV PRN ×3 (08:40→19:47)
[2018-12-16] MEDS: PANTOPRAZOLE 40 MG INJ IV SCH ×2 (12:06→21:33)
--- NOTE | 2018-12-16 13:06 | Discharge Summary ---
Providers - Providers Date of Admission: 12/15/18 08:51 Date of discharge: 12/16/18 Attending physician: ALEKSANDR FU 12/15/18 11:36 Consult to Physician [CONS] Routine Comment: Consulting Provider: AGNES LEROY Physician Instructions: Reason For Exam: h/o coffee ground emesis/abd pain Primary care physician: FIELD SECRETARY Hospitalization Condition: Fair Disposition: DC-01 TO HOME OR SELFCARE Time spent for discharge: 32 min Core Measure Documentation - Palliative Care Palliative Care/ Comfort Measures: Not Applicable - Core Measures Any of the following diagnoses?: none Exam - Constitutional Vitals: Temp Pulse Resp BP Pulse Ox 98.1 F 58 L 20 110/80 98 12/16/18 12:12 12/16/18 12:12 12/16/18 12:12 12/16/18 12:12 12/16/18 12:12 General appearance: Present: no acute distress, well-nourished - EENT Eyes: Present: PERRL, EOM intact - Neck Neck: Present: supple, normal ROM - Respiratory Respiratory effort: normal Respiratory: negative: rales, rhonchi, wheezing - Cardiovascular Rhythm: regular Heart Sounds: Present: S1 & S2 - Extremities Extremities: no ischemia, No edema - Abdominal General gastrointestinal: Present: soft, non-tender, non-distended, normal bowel sounds - Integumentary Integumentary: Present: clear, warm - Musculoskeletal Musculoskeletal: strength equal bilaterally - Psychiatric Psychiatric: appropriate mood/affect, cooperative - Neurologic Neurologic: CNII-XII intact, moves all extremities Plan Activity: no restrictions Diet: other (Diet as tolerated) Additional Instructions: If you notice any GI bleeding contact M.D. or go to emergency room. Advised to quit recreational drug use Follow up with: TYLER SANDOVAL DO [Staff Physician] - 3-5 Days KARMA CESAR MD [Staff Physician] - 3-5 Days AGNES LEROY MD [Staff Physician] - 7 Days Forms: Accompanied Note Prescriptions: Sucralfate [Carafate] 1 gm PO Q6HR #30 tablet Pantoprazole [Protonix] 40 mg PO QDAY #30 tablet Ondansetron [Zofran Odt] 4 mg PO Q8HR #21 tab.shainadis
--- NOTE | 2018-12-16 13:29 | Gastroenterology Progress Note ---
Assessment and Plan GI: pt h/o recent esophagitis now with nausea with eating and noted sludge on ruq ultrasound - continue PPI qd, start Carafate susp qid - soft diet - if tolerating soft diet ok to dc from GI standpoint - if symptoms worsen consider HIDA scan and surgery consult - will follow Subjective Date of service: 12/16/18 Interval history: - reports still w/ some nausea and epigastric pain but improving Objective - Constitutional Vitals: Temp Pulse Resp BP Pulse Ox 98.1 F 58 L 20 110/80 98 12/16/18 12:12 12/16/18 12:12 12/16/18 12:12 12/16/18 12:12 12/16/18 12:12 General appearance: no acute distress - EENT Eyes: PERRL - Respiratory Respiratory: bilateral: CTA - Cardiovascular Rhythm: regular Heart Sounds: Present: S1 & S2 - Gastrointestinal General gastrointestinal: Present: soft, non-tender - Labs CBC & Chem 7: 12/16/18 04:44 12/16/18 04:44 Labs: Laboratory Results - last 24 hr 12/16/18 12/16/18 04:44 04:44 WBC 6.5 RBC 4.68 Hgb 13.9 Hct 40.8 D MCV 87 MCH 30 MCHC 34 RDW 15.3 H Plt Count 191 Lymph % (Auto) 29.7 [place] % (Auto) 10.2 H Eos % (Auto) 2.9 Baso % (Auto) 1.1 Lymph # 1.9 [place] # 0.7 Eos # 0.2 Baso # 0.1 Seg Neutrophils % 56.1 Seg Neutrophils # 3.6 Sodium 141 Potassium 3.8 D Chloride 106.1 Carbon Dioxide 24 Anion Gap 15 BUN 11 Creatinine 1.0 Estimated GFR > 60 BUN/Creatinine Ratio 11 Glucose 90 Calcium 7.9 L Total Bilirubin 0.80 AST 53 H ALT 34 Alkaline Phosphatase 63 Total Protein 5.4 L Albumin 3.4 L Albumin/Globulin Ratio 1.7
[2018-12-16] MEDS: diphenhydrAMINE 50 MG/ML VIAL IV PRN (17:32)
--- NOTE | 2018-12-17 00:23 | Progress Note ---
Assessment and Plan Assessment and plan: --Possible upper GI bleeding/coffee-ground emesis; Clear liquid diet, IV Protonix, GI consult Request medical records from [facility] H&H, transfuse as needed --Right upper Abdominal pain; gallbladder sludge without cholecystitis CT abdomen, ultrasound abdomen no acute abnormalities Clear liquid diet, supportive care, monitor, surgery consult if no improvement --Leukocytosis; possible colitis Continue empiric antibiotics Follow clinically --Substance abuse; tobacco, alcohol, cocaine Strongly advised to quit recreational drug use Smoking cessation, advised to quit alcohol intake Monitor for alcohol withdrawal symptoms --DVT prophylaxis; SCD Monitor closely and adjust the management as needed Plan of care is reviewed with the patient and his nurse Follow GI evaluation and recommendations Discharge home when stable History Interval history: As Patient was feeling better order was given to discharged home However later in the evening patient developed right upper quadrant pain Associated with nausea vomiting, discharge was held. Vital signs reviewed vital Hospitalist Physical - Constitutional Vitals: Temp Pulse Resp BP Pulse Ox 98.4 F 64 18 103/64 96 12/16/18 23:17 12/16/18 23:17 12/16/18 23:17 12/16/18 23:17 12/16/18 23:17 General appearance: Present: mild distress, well-nourished - EENT Eyes: Present: PERRL, EOM intact - Neck Neck: Present: supple, normal ROM - Respiratory Respiratory effort: normal Respiratory: bilateral: diminished, negative: rales, rhonchi, wheezing - Cardiovascular Rhythm: regular Heart Sounds: Present: S1 & S2 - Extremities Extremities: no ischemia, No edema - Abdominal General gastrointestinal: soft, non-tender, tender (right upper quadrant/no guarding no rigidity), normal bowel sounds, no non-distended (right upper quadrant) - Integumentary Integumentary: Present: clear, warm - Psychiatric Psychiatric: appropriate mood/affect, cooperative - Neurologic Neurologic: moves all extremities Results - Labs CBC & Chem 7: 12/16/18 04:44 12/16/18 04:44 Labs: Laboratory Last Values WBC 6.5 K/mm3 (4.5-11.0) 12/16/18 04:44 RBC 4.68 M/mm3 (3.65-5.03) 12/16/18 04:44 Hgb 13.9 gm/dl (11.8-15.2) 12/16/18 04:44 Hct 40.8 % (35.5-45.6) D 12/16/18 04:44 MCV 87 fl (84-94) 12/16/18 04:44 MCH 30 pg (28-32) 12/16/18 04:44 MCHC 34 % (32-34) 12/16/18 04:44 RDW 15.3 % (13.2-15.2) H 12/16/18 04:44 Plt Count 191 K/mm3 (140-440) 12/16/18 04:44 Lymph % (Auto) 29.7 % (13.4-35.0) 12/16/18 04:44 [place] % (Auto) 10.2 % (0.0-7.3) H 12/16/18 04:44 Eos % (Auto) 2.9 % (0.0-4.3) 12/16/18 04:44 Baso % (Auto) 1.1 % (0.0-1.8) 12/16/18 04:44 Lymph # 1.9 K/mm3 (1.2-5.4) 12/16/18 04:44 [place] # 0.7 K/mm3 (0.0-0.8) 12/16/18 04:44 Eos # 0.2 K/mm3 (0.0-0.4) 12/16/18 04:44 Baso # 0.1 K/mm3 (0.0-0.1) 12/16/18 04:44 Add Manual Diff Complete 12/15/18 05:06 Total Counted 100 12/15/18 05:06 Seg Neutrophils % 56.1 % (40.0-70.0) 12/16/18 04:44 Seg Neuts % (Manual) 94.0 % (40.0-70.0) H 12/15/18 05:06 Band Neutrophils % 0 % 12/15/18 05:06 Lymphocytes % (Manual) 3.0 % (13.4-35.0) L 12/15/18 05:06 Reactive Lymphs % (Man) 0 % 12/15/18 05:06 Monocytes % (Manual) 3.0 % (0.0-7.3) 12/15/18 05:06 Eosinophils % (Manual) 0 % (0.0-4.3) 12/15/18 05:06 Basophils % (Manual) 0 % (0.0-1.8) 12/15/18 05:06 Metamyelocytes % 0 % 12/15/18 05:06 Myelocytes % 0 % 12/15/18 05:06 Promyelocytes % 0 % 12/15/18 05:06 Blast Cells % 0 % 12/15/18 05:06 Nucleated RBC % Not Reportable 12/15/18 05:06 Seg Neutrophils # 3.6 K/mm3 (1.8-7.7) 12/16/18 04:44 Seg Neutrophils # Man 19.2 K/mm3 (1.8-7.7) H 12/15/18 05:06 Band Neutrophils # 0.0 K/mm3 12/15/18 05:06 Lymphocytes # (Manual) 0.6 K/mm3 (1.2-5.4) L 12/15/18 05:06 Abs React Lymphs (Man) 0.0 K/mm3 12/15/18 05:06 Monocytes # (Manual) 0.6 K/mm3 (0.0-0.8) 12/15/18 05:06 Eosinophils # (Manual) 0.0 K/mm3 (0.0-0.4) 12/15/18 05:06 Basophils # (Manual) 0.0 K/mm3 (0.0-0.1) 12/15/18 05:06 Metamyelocytes # 0.0 K/mm3 12/15/18 05:06 Myelocytes # 0.0 K/mm3 12/15/18 05:06 Promyelocytes # 0.0 K/mm3 12/15/18 05:06 Blast Cells # 0.0 K/mm3 12/15/18 05:06 WBC Morphology Not Reportable 12/15/18 05:06 Hypersegmented Neuts Not Reportable 12/15/18 05:06 Hyposegmented Neuts Not Reportable 12/15/18 05:06 Hypogranular Neuts Not Reportable 12/15/18 05:06 Smudge Cells Not Reportable 12/15/18 05:06 Toxic Granulation Not Reportable 12/15/18 05:06 Toxic Vacuolation Not Reportable 12/15/18 05:06 Dohle Bodies Not Reportable 12/15/18 05:06 Pelger-Huet Anomaly Not Reportable 12/15/18 05:06 Yue Rods Not Reportable 12/15/18 05:06 Platelet Estimate Consistent w auto 12/15/18 05:06 Clumped Platelets Not Reportable 12/15/18 05:06 Plt Clumps, EDTA Not Reportable 12/15/18 05:06 Large Platelets Not Reportable 12/15/18 05:06 Giant Platelets Not Reportable 12/15/18 05:06 Platelet Satelliting Not Reportable 12/15/18 05:06 Plt Morphology Comment Not Reportable 12/15/18 05:06 RBC Morphology Not Reportable 12/15/18 05:06 Dimorphic RBCs Not Reportable 12/15/18 05:06 Polychromasia Not Reportable 12/15/18 05:06 Hypochromasia Not Reportable 12/15/18 05:06 Poikilocytosis Not Reportable 12/15/18 05:06 Anisocytosis Few 12/15/18 05:06 Microcytosis Not Reportable 12/15/18 05:06 Macrocytosis Not Reportable 12/15/18 05:06 Spherocytes Not Reportable 12/15/18 05:06 Pappenheimer Bodies Not Reportable 12/15/18 05:06 Sickle Cells Not Reportable 12/15/18 05:06 Target Cells Not Reportable 12/15/18 05:06 Tear Drop Cells Not Reportable 12/15/18 05:06 Ovalocytes Not Reportable 12/15/18 05:06 Helmet Cells Not Reportable 12/15/18 05:06 Gooden-[place] Bodies Not Reportable 12/15/18 05:06 [place] Rings Not Reportable 12/15/18 05:06 [place] Cells Not Reportable 12/15/18 05:06 Bite Cells Not Reportable 12/15/18 05:06 Crenated Cell Not Reportable 12/15/18 05:06 Elliptocytes Not Reportable 12/15/18 05:06 Acanthocytes (Spur) Not Reportable 12/15/18 05:06 Rouleaux Not Reportable 12/15/18 05:06 Hemoglobin C Crystals Not Reportable 12/15/18 05:06 Schistocytes Not Reportable 12/15/18 05:06 Malaria parasites Not Reportable 12/15/18 05:06 Francis Bodies Not Reportable 12/15/18 05:06 Hem Pathologist Commnt No 12/15/18 05:06 Sodium 141 mmol/L (137-145) 12/16/18 04:44 Potassium 3.8 mmol/L (3.6-5.0) D 12/16/18 04:44 Chloride 106.1 mmol/L (98-107) 12/16/18 04:44 Carbon Dioxide 24 mmol/L (22-30) 12/16/18 04:44 Anion Gap 15 mmol/L 12/16/18 04:44 BUN 11 mg/dL (9-20) 12/16/18 04:44 Creatinine 1.0 mg/dL (0.8-1.5) 12/16/18 04:44 Estimated GFR > 60 ml/min 12/16/18 04:44 BUN/Creatinine Ratio 11 % 12/16/18 04:44 Glucose 90 mg/dL (75-100) 12/16/18 04:44 Calcium 7.9 mg/dL (8.4-10.2) L 12/16/18 04:44 Total Bilirubin 0.80 mg/dL (0.1-1.2) 12/16/18 04:44 AST 53 units/L (5-40) H 12/16/18 04:44 ALT 34 units/L (7-56) 12/16/18 04:44 Alkaline Phosphatase 63 units/L (35-129) 12/16/18 04:44 Total Protein 5.4 g/dL (6.3-8.2) L 12/16/18 04:44 Albumin 3.4 g/dL (3.9-5) L 12/16/18 04:44 Albumin/Globulin Ratio 1.7 % 12/16/18 04:44 Active Medications - Current Medications Current Medications: Generic Name Dose Route Start Last Admin Trade Name Freq PRN Reason Stop Dose Admin Diphenhydramine HCl 25 mg 12/15/18 23:14 12/16/18 17:32 Benadryl IV 25 mg Q6H PRN Administration Itching Sodium Chloride 1,000 mls @ 100 mls/hr 12/15/18 11:00 12/16/18 14:12 Nacl 0.9% 1000 Ml IV 100 mls/hr DIRECT GILBERT Administration Morphine Sulfate 2 mg 12/15/18 10:06 12/16/18 19:47 Morphine IV 2 mg Q4H PRN Administration Pain, Moderate (4-6) Ondansetron HCl 4 mg 12/15/18 12:14 12/15/18 23:33 Zofran IV 4 mg Q4H PRN Administration Nausea And Vomiting Pantoprazole Sodium 40 mg 12/16/18 10:00 12/16/18 21:33 Protonix IV 40 mg BID GILBERT Administration Sucralfate 1 gm 12/15/18 22:00 12/16/18 21:33 Carafate PO 1 gm ACHS GILBERT Administration
[2018-12-17] MEDS: SODIUM CHLORIDE 0.9% 1000 ML 1,000 ML IV SCH ×3 (01:47→23:48)
[2018-12-17] MEDS: MORPHINE 2 MG/1 ML INJ IV PRN ×4 (01:47→19:45)
[2018-12-17] MEDS: ONDANSETRON 4 MG/2 ML INJ IV PRN ×2 (08:12→13:46)
[2018-12-17] MEDS: SUCRALFATE 1 GM/10 ML ORAL LIQD PO SCH ×4 (08:12→21:49)
--- NOTE | 2018-12-17 08:56 | Progress Note ---
Assessment and Plan Assessment and plan: --Right upper quadrant Abdominal pain; Gallbladder sludge without cholecystitis on ultrasound Check HIDA scan per GI, nothing by mouth Surgical consult supportive care --Possible upper GI bleeding/h/o coffee-ground emesis; Resolved, GI following, no plans of endoscopy Awaiting medical records from [facility]& stable --Leukocytosis; resolved --Substance abuse; tobacco, alcohol, cocaine Strongly advised to quit recreational drug use Smoking cessation, advised to quit alcohol intake --DVT prophylaxis; SCD The HIDA scan, follow surgery evaluation and recommendations Continue current management Plan of care is reviewed with the patient and his nurse History Interval history: Patient seen and examined medical records reviewed Patient complains of severe right upper quadrant pain With mild nausea and vomiting Since abdominal ultrasound findings were consistent with gallbladder sludge no acute cholecystitis Patient is alert and awake in mild distress Vital signs reviewed Hospitalist Physical - Constitutional Vitals: Temp Pulse Resp BP Pulse Ox 97.6 F 53 L 18 115/72 93 12/17/18 05:55 12/17/18 05:55 12/17/18 05:55 12/17/18 05:55 12/17/18 05:55 General appearance: Present: no acute distress, well-nourished - EENT Eyes: Present: PERRL, EOM intact - Neck Neck: Present: supple, normal ROM - Respiratory Respiratory effort: normal Respiratory: bilateral: diminished, negative: rales, rhonchi, wheezing - Cardiovascular Rhythm: regular Heart Sounds: Present: S1 & S2 - Extremities Extremities: no ischemia, No edema - Abdominal General gastrointestinal: soft, tender (right upper quadrant no guarding no rigidity), normal bowel sounds - Integumentary Integumentary: Present: clear, warm - Psychiatric Psychiatric: appropriate mood/affect, cooperative - Neurologic Neurologic: moves all extremities Results - Labs CBC & Chem 7: 12/16/18 04:44 12/16/18 04:44 Labs: Laboratory Last Values WBC 6.5 K/mm3 (4.5-11.0) 12/16/18 04:44 RBC 4.68 M/mm3 (3.65-5.03) 12/16/18 04:44 Hgb 13.9 gm/dl (11.8-15.2) 12/16/18 04:44 Hct 40.8 % (35.5-45.6) D 12/16/18 04:44 MCV 87 fl (84-94) 12/16/18 04:44 MCH 30 pg (28-32) 12/16/18 04:44 MCHC 34 % (32-34) 12/16/18 04:44 RDW 15.3 % (13.2-15.2) H 12/16/18 04:44 Plt Count 191 K/mm3 (140-440) 12/16/18 04:44 Lymph % (Auto) 29.7 % (13.4-35.0) 12/16/18 04:44 Mayes % (Auto) 10.2 % (0.0-7.3) H 12/16/18 04:44 Eos % (Auto) 2.9 % (0.0-4.3) 12/16/18 04:44 Baso % (Auto) 1.1 % (0.0-1.8) 12/16/18 04:44 Lymph # 1.9 K/mm3 (1.2-5.4) 12/16/18 04:44 Mayes # 0.7 K/mm3 (0.0-0.8) 12/16/18 04:44 Eos # 0.2 K/mm3 (0.0-0.4) 12/16/18 04:44 Baso # 0.1 K/mm3 (0.0-0.1) 12/16/18 04:44 Add Manual Diff Complete 12/15/18 05:06 Total Counted 100 12/15/18 05:06 Seg Neutrophils % 56.1 % (40.0-70.0) 12/16/18 04:44 Seg Neuts % (Manual) 94.0 % (40.0-70.0) H 12/15/18 05:06 Band Neutrophils % 0 % 12/15/18 05:06 Lymphocytes % (Manual) 3.0 % (13.4-35.0) L 12/15/18 05:06 Reactive Lymphs % (Man) 0 % 12/15/18 05:06 Monocytes % (Manual) 3.0 % (0.0-7.3) 12/15/18 05:06 Eosinophils % (Manual) 0 % (0.0-4.3) 12/15/18 05:06 Basophils % (Manual) 0 % (0.0-1.8) 12/15/18 05:06 Metamyelocytes % 0 % 12/15/18 05:06 Myelocytes % 0 % 12/15/18 05:06 Promyelocytes % 0 % 12/15/18 05:06 Blast Cells % 0 % 12/15/18 05:06 Nucleated RBC % Not Reportable 12/15/18 05:06 Seg Neutrophils # 3.6 K/mm3 (1.8-7.7) 12/16/18 04:44 Seg Neutrophils # Man 19.2 K/mm3 (1.8-7.7) H 12/15/18 05:06 Band Neutrophils # 0.0 K/mm3 12/15/18 05:06 Lymphocytes # (Manual) 0.6 K/mm3 (1.2-5.4) L 12/15/18 05:06 Abs React Lymphs (Man) 0.0 K/mm3 12/15/18 05:06 Monocytes # (Manual) 0.6 K/mm3 (0.0-0.8) 12/15/18 05:06 Eosinophils # (Manual) 0.0 K/mm3 (0.0-0.4) 12/15/18 05:06 Basophils # (Manual) 0.0 K/mm3 (0.0-0.1) 12/15/18 05:06 Metamyelocytes # 0.0 K/mm3 12/15/18 05:06 Myelocytes # 0.0 K/mm3 12/15/18 05:06 Promyelocytes # 0.0 K/mm3 12/15/18 05:06 Blast Cells # 0.0 K/mm3 12/15/18 05:06 WBC Morphology Not Reportable 12/15/18 05:06 Hypersegmented Neuts Not Reportable 12/15/18 05:06 Hyposegmented Neuts Not Reportable 12/15/18 05:06 Hypogranular Neuts Not Reportable 12/15/18 05:06 Smudge Cells Not Reportable 12/15/18 05:06 Toxic Granulation Not Reportable 12/15/18 05:06 Toxic Vacuolation Not Reportable 12/15/18 05:06 Dohle Bodies Not Reportable 12/15/18 05:06 Pelger-Huet Anomaly Not Reportable 12/15/18 05:06 Yue Rods Not Reportable 12/15/18 05:06 Platelet Estimate Consistent w auto 12/15/18 05:06 Clumped Platelets Not Reportable 12/15/18 05:06 Plt Clumps, EDTA Not Reportable 12/15/18 05:06 Large Platelets Not Reportable 12/15/18 05:06 Giant Platelets Not Reportable 12/15/18 05:06 Platelet Satelliting Not Reportable 12/15/18 05:06 Plt Morphology Comment Not Reportable 12/15/18 05:06 RBC Morphology Not Reportable 12/15/18 05:06 Dimorphic RBCs Not Reportable 12/15/18 05:06 Polychromasia Not Reportable 12/15/18 05:06 Hypochromasia Not Reportable 12/15/18 05:06 Poikilocytosis Not Reportable 12/15/18 05:06 Anisocytosis Few 12/15/18 05:06 Microcytosis Not Reportable 12/15/18 05:06 Macrocytosis Not Reportable 12/15/18 05:06 Spherocytes Not Reportable 12/15/18 05:06 Pappenheimer Bodies Not Reportable 12/15/18 05:06 Sickle Cells Not Reportable 12/15/18 05:06 Target Cells Not Reportable 12/15/18 05:06 Tear Drop Cells Not Reportable 12/15/18 05:06 Ovalocytes Not Reportable 12/15/18 05:06 Helmet Cells Not Reportable 12/15/18 05:06 [place] Bodies Not Reportable 12/15/18 05:06 [place] Rings Not Reportable 12/15/18 05:06 [place] Cells Not Reportable 12/15/18 05:06 Bite Cells Not Reportable 12/15/18 05:06 Crenated Cell Not Reportable 12/15/18 05:06 Elliptocytes Not Reportable 12/15/18 05:06 Acanthocytes (Spur) Not Reportable 12/15/18 05:06 Rouleaux Not Reportable 12/15/18 05:06 Hemoglobin C Crystals Not Reportable 12/15/18 05:06 Schistocytes Not Reportable 12/15/18 05:06 Malaria parasites Not Reportable 12/15/18 05:06 Francis Bodies Not Reportable 12/15/18 05:06 Hem Pathologist Commnt No 12/15/18 05:06 Sodium 141 mmol/L (137-145) 12/16/18 04:44 Potassium 3.8 mmol/L (3.6-5.0) D 12/16/18 04:44 Chloride 106.1 mmol/L (98-107) 12/16/18 04:44 Carbon Dioxide 24 mmol/L (22-30) 12/16/18 04:44 Anion Gap 15 mmol/L 12/16/18 04:44 BUN 11 mg/dL (9-20) 12/16/18 04:44 Creatinine 1.0 mg/dL (0.8-1.5) 12/16/18 04:44 Estimated GFR > 60 ml/min 12/16/18 04:44 BUN/Creatinine Ratio 11 % 12/16/18 04:44 Glucose 90 mg/dL (75-100) 12/16/18 04:44 Calcium 7.9 mg/dL (8.4-10.2) L 12/16/18 04:44 Total Bilirubin 0.80 mg/dL (0.1-1.2) 12/16/18 04:44 AST 53 units/L (5-40) H 12/16/18 04:44 ALT 34 units/L (7-56) 12/16/18 04:44 Alkaline Phosphatase 63 units/L (35-129) 12/16/18 04:44 Total Protein 5.4 g/dL (6.3-8.2) L 12/16/18 04:44 Albumin 3.4 g/dL (3.9-5) L 12/16/18 04:44 Albumin/Globulin Ratio 1.7 % 12/16/18 04:44 Active Medications - Current Medications Current Medications: Generic Name Dose Route Start Last Admin Trade Name Freq PRN Reason Stop Dose Admin Diphenhydramine HCl 25 mg 12/15/18 23:14 12/16/18 17:32 Benadryl IV 25 mg Q6H PRN Administration Itching Sodium Chloride 1,000 mls @ 100 mls/hr 12/15/18 11:00 12/17/18 01:47 Nacl 0.9% 1000 Ml IV 100 mls/hr DIRECT GILBERT Administration Morphine Sulfate 2 mg 12/17/18 08:55 Morphine IV Q6H PRN Pain, Moderate (4-6) Ondansetron HCl 4 mg 12/15/18 12:14 10/06/19 08:12 Zofran IV 4 mg Q4H PRN Administration Nausea And Vomiting Pantoprazole Sodium 40 mg 12/16/18 10:00 12/16/18 21:33 Protonix IV 40 mg BID GILBERT Administration Sucralfate 1 gm 12/15/18 22:00 12/17/18 08:12 Carafate PO 1 gm ACHS GILBERT Administration
[2018-12-17] MEDS: PANTOPRAZOLE 40 MG TAB PO SCH ×2 (10:38→21:49)
--- NOTE | 2018-12-17 11:03 | Gastroenterology Progress Note ---
Assessment and Plan GI: pt w/ recent nausea, vomiting, upper abdominal pain, recent EGD at [facility] w/ esophagitis now worsening symptoms overnight - pt ultrasound w/ GB sludge recently - HIDA scan - rec surgery consult - continue anti-emetics and pain meds prn - no plans to re-scope at this time - will follow Subjective Date of service: 12/17/18 Interval history: - pt reports worsening pain right mid/upper abdominal area overnight with nausea this am Objective - Constitutional Vitals: Temp Pulse Resp BP Pulse Ox 97.6 F 53 L 18 115/72 93 12/17/18 05:55 12/17/18 05:55 12/17/18 05:55 12/17/18 05:55 12/17/18 05:55 General appearance: no acute distress - EENT Eyes: PERRL - Respiratory Respiratory: bilateral: CTA - Cardiovascular Rhythm: regular Heart Sounds: Present: S1 & S2 - Gastrointestinal General gastrointestinal: Present: soft, non-tender, non-distended - Labs CBC & Chem 7: 12/16/18 04:44 12/16/18 04:44
[2018-12-18] MEDS: MORPHINE 2 MG/1 ML INJ IV PRN ×3 (02:24→21:24)
[2018-12-18] MEDS ORDERED: ACETAMINOPHEN 325 MG TAB PO PRN (10:19)
[2018-12-18] MEDS: SUCRALFATE 1 GM/10 ML ORAL LIQD PO SCH ×4 (10:48→21:24)
[2018-12-18] MEDS: PANTOPRAZOLE 40 MG TAB PO SCH ×2 (10:49→21:26)
[2018-12-18] MEDS: buPROPion 75 MG TAB PO SCH (10:50)
[2018-12-18] MEDS: SERTRALINE 25 MG TAB PO SCH (10:50)
[2018-12-18] MEDS ORDERED: SINCALIDE 5 MCG VIAL IV ONE ×2 (12:10→12:27)
[2018-12-18] MEDS ORDERED: WATER FOR INJ Sterile (PF) 10 ML ONE (12:11)
[2018-12-18] MEDS ORDERED: WATER FOR INJ Sterile (PF) 10 ML IV ONE (12:28)
--- NOTE | 2018-12-18 13:42 | Nuclear Medicine Report ---
NUCLEAR MEDICINE HEPATOBILIARY SCAN INDICATION / CLINICAL INFORMATION: ruq pain, n/v. TECHNIQUE: Radiotracer: Tc-99m mebrofenin (by IV): 5 mCi. Gallbladder Stimulant: Cholecystokinin (in mcg by IV): 1.69 COMPARISON: Ultrasound and CT dated 12/15/18 FINDINGS: HEPATIC ACTIVITY: Normal. BILIARY ACTIVITY: Normal. Common bile duct activity at 20 minutes. GALLBLADDER ACTIVITY: Normal at 20 minutes. SMALL BOWEL ACTIVITY: Normal at 60 minutes. GALLBLADDER EJECTION FRACTION % (if calculated): 42% - Normal at 30 min with Cholecystokinin: >35% - Normal at 60 min with Ensure/Glucerna: >33% PATIENT SYMPTOM REPRODUCTION: Concordant symptoms. IMPRESSION: 1. Biliary obstruction: None. 2. Gallbladder ejection fraction: Normal. 3. Concordant symptoms with CCK injection. Signer Name: Jenny Mckay MD Signed: 12/18/2018 1:38 PM Workstation Name: [id number]
--- NOTE | 2018-12-18 13:56 | Progress Note ---
Assessment and Plan Full consult dictated 48 y/o male c/o RUQ abd pain accompanied by N&V Abd soft, mild RUQ tenderness at present GB - sludge no signs of acute cholecystitis HIDA - GB visualized wnl. pain was mimicked with kinevac stimulation. imp biliary colic/dyskenesia pt wishes to proceed with lap GB during this hospital stay will schedule Selected Entries 12/18/18 05:58 Temperature 98.2 F Pulse Rate 74 Respiratory 18 Rate Blood Pressure 114/82 Laboratory Tests 12/15/18 12/16/18 12/16/18 05:06 04:44 04:44 WBC 20.4 H 6.5 Hgb 13.9 Hct 40.8 D Total Bilirubin 0.80 AST 53 H ALT 34 Alkaline Phosphatase 63 Objective Vital Signs - 12hr 12/18/18 05:58 Temperature 98.2 F Pulse Rate 74 Respiratory 18 Rate Blood Pressure 114/82 O2 Sat by Pulse 96 Oximetry - Labs 12/16/18 04:44 12/16/18 04:44
[2018-12-18] MEDS: SODIUM CHLORIDE 0.9% 1000 ML 1,000 ML IV SCH (15:51)
[2018-12-18 16:00] LABS: INR 0.94 (0.87-1.13)
[2018-12-18 16:01] LABS: Partial Thromboplastin Time 26.7 Sec. (24.2-36.6)
--- NOTE | 2018-12-18 16:21 | Progress Note ---
Assessment and Plan Assessment and plan: --Right upper quadrant Abdominal pain; Gallbladder sludge without cholecystitis on ultrasound HIDA scan findings reviewed Surgery planning cholecystectomy --Possible upper GI bleeding/h/o coffee-ground emesis; Resolved, GI following, no plans of endoscopy Awaiting medical records from [facility] stable --Leukocytosis; resolved --Substance abuse; tobacco, alcohol, cocaine Strongly advised to quit recreational drug use Smoking cessation, advised to quit alcohol intake --DVT prophylaxis; SCD follow surgery recommendations Continue current management Plan of care is reviewed with the patient and his nurse History Interval history: Patient examined in his room feels slightly better HIDA scan findings reviewed Vital signs noted Hospitalist Physical - Constitutional Vitals: Temp Pulse Resp BP Pulse Ox 98.2 F 74 18 114/82 96 12/18/18 05:58 12/18/18 05:58 12/18/18 05:58 12/18/18 05:58 12/18/18 05:58 General appearance: Present: no acute distress, well-nourished - EENT Eyes: Present: PERRL, EOM intact - Neck Neck: Present: supple, normal ROM - Respiratory Respiratory effort: normal Respiratory: bilateral: diminished, negative: rales, rhonchi, wheezing - Cardiovascular Rhythm: regular Heart Sounds: Present: S1 & S2 - Extremities Extremities: no ischemia, No edema - Abdominal General gastrointestinal: soft, non-tender, non-distended, normal bowel sounds - Integumentary Integumentary: Present: clear, warm - Psychiatric Psychiatric: appropriate mood/affect, cooperative - Neurologic Neurologic: CNII-XII intact, moves all extremities Results - Labs CBC & Chem 7: 12/16/18 04:44 12/16/18 04:44 Labs: Laboratory Last Values WBC 6.5 K/mm3 (4.5-11.0) 12/16/18 04:44 RBC 4.68 M/mm3 (3.65-5.03) 12/16/18 04:44 Hgb 13.9 gm/dl (11.8-15.2) 12/16/18 04:44 Hct 40.8 % (35.5-45.6) D 12/16/18 04:44 MCV 87 fl (84-94) 12/16/18 04:44 MCH 30 pg (28-32) 12/16/18 04:44 MCHC 34 % (32-34) 12/16/18 04:44 RDW 15.3 % (13.2-15.2) H 12/16/18 04:44 Plt Count 191 K/mm3 (140-440) 12/16/18 04:44 Lymph % (Auto) 29.7 % (13.4-35.0) 12/16/18 04:44 [place] % (Auto) 10.2 % (0.0-7.3) H 12/16/18 04:44 Eos % (Auto) 2.9 % (0.0-4.3) 12/16/18 04:44 Baso % (Auto) 1.1 % (0.0-1.8) 12/16/18 04:44 Lymph # 1.9 K/mm3 (1.2-5.4) 12/16/18 04:44 [place] # 0.7 K/mm3 (0.0-0.8) 12/16/18 04:44 Eos # 0.2 K/mm3 (0.0-0.4) 12/16/18 04:44 Baso # 0.1 K/mm3 (0.0-0.1) 12/16/18 04:44 Add Manual Diff Complete 12/15/18 05:06 Total Counted 100 12/15/18 05:06 Seg Neutrophils % 56.1 % (40.0-70.0) 12/16/18 04:44 Seg Neuts % (Manual) 94.0 % (40.0-70.0) H 12/15/18 05:06 Band Neutrophils % 0 % 12/15/18 05:06 Lymphocytes % (Manual) 3.0 % (13.4-35.0) L 12/15/18 05:06 Reactive Lymphs % (Man) 0 % 12/15/18 05:06 Monocytes % (Manual) 3.0 % (0.0-7.3) 12/15/18 05:06 Eosinophils % (Manual) 0 % (0.0-4.3) 12/15/18 05:06 Basophils % (Manual) 0 % (0.0-1.8) 12/15/18 05:06 Metamyelocytes % 0 % 12/15/18 05:06 Myelocytes % 0 % 12/15/18 05:06 Promyelocytes % 0 % 12/15/18 05:06 Blast Cells % 0 % 12/15/18 05:06 Nucleated RBC % Not Reportable 12/15/18 05:06 Seg Neutrophils # 3.6 K/mm3 (1.8-7.7) 12/16/18 04:44 Seg Neutrophils # Man 19.2 K/mm3 (1.8-7.7) H 12/15/18 05:06 Band Neutrophils # 0.0 K/mm3 12/15/18 05:06 Lymphocytes # (Manual) 0.6 K/mm3 (1.2-5.4) L 12/15/18 05:06 Abs React Lymphs (Man) 0.0 K/mm3 12/15/18 05:06 Monocytes # (Manual) 0.6 K/mm3 (0.0-0.8) 12/15/18 05:06 Eosinophils # (Manual) 0.0 K/mm3 (0.0-0.4) 12/15/18 05:06 Basophils # (Manual) 0.0 K/mm3 (0.0-0.1) 12/15/18 05:06 Metamyelocytes # 0.0 K/mm3 12/15/18 05:06 Myelocytes # 0.0 K/mm3 12/15/18 05:06 Promyelocytes # 0.0 K/mm3 12/15/18 05:06 Blast Cells # 0.0 K/mm3 12/15/18 05:06 WBC Morphology Not Reportable 12/15/18 05:06 Hypersegmented Neuts Not Reportable 12/15/18 05:06 Hyposegmented Neuts Not Reportable 12/15/18 05:06 Hypogranular Neuts Not Reportable 12/15/18 05:06 Smudge Cells Not Reportable 12/15/18 05:06 Toxic Granulation Not Reportable 12/15/18 05:06 Toxic Vacuolation Not Reportable 12/15/18 05:06 Dohle Bodies Not Reportable 12/15/18 05:06 Pelger-Huet Anomaly Not Reportable 12/15/18 05:06 Yue Rods Not Reportable 12/15/18 05:06 Platelet Estimate Consistent w auto 12/15/18 05:06 Clumped Platelets Not Reportable 12/15/18 05:06 Plt Clumps, EDTA Not Reportable 12/15/18 05:06 Large Platelets Not Reportable 12/15/18 05:06 Giant Platelets Not Reportable 12/15/18 05:06 Platelet Satelliting Not Reportable 12/15/18 05:06 Plt Morphology Comment Not Reportable 12/15/18 05:06 RBC Morphology Not Reportable 12/15/18 05:06 Dimorphic RBCs Not Reportable 12/15/18 05:06 Polychromasia Not Reportable 12/15/18 05:06 Hypochromasia Not Reportable 12/15/18 05:06 Poikilocytosis Not Reportable 12/15/18 05:06 Anisocytosis Few 12/15/18 05:06 Microcytosis Not Reportable 12/15/18 05:06 Macrocytosis Not Reportable 12/15/18 05:06 Spherocytes Not Reportable 12/15/18 05:06 Pappenheimer Bodies Not Reportable 12/15/18 05:06 Sickle Cells Not Reportable 12/15/18 05:06 Target Cells Not Reportable 12/15/18 05:06 Tear Drop Cells Not Reportable 12/15/18 05:06 Ovalocytes Not Reportable 12/15/18 05:06 Helmet Cells Not Reportable 12/15/18 05:06 [place] Bodies Not Reportable 12/15/18 05:06 [place] Rings Not Reportable 12/15/18 05:06 [place] Cells Not Reportable 12/15/18 05:06 Bite Cells Not Reportable 12/15/18 05:06 Crenated Cell Not Reportable 12/15/18 05:06 Elliptocytes Not Reportable 12/15/18 05:06 Acanthocytes (Spur) Not Reportable 12/15/18 05:06 Rouleaux Not Reportable 12/15/18 05:06 Hemoglobin C Crystals Not Reportable 12/15/18 05:06 Schistocytes Not Reportable 12/15/18 05:06 Malaria parasites Not Reportable 12/15/18 05:06 Francis Bodies Not Reportable 12/15/18 05:06 Hem Pathologist Commnt No 12/15/18 05:06 PT 12.3 Sec. (12.2-14.9) 12/18/18 14:57 INR 0.94 (0.87-1.13) 12/18/18 14:57 APTT 26.7 Sec. (24.2-36.6) 12/18/18 14:57 Sodium 141 mmol/L (137-145) 12/16/18 04:44 Potassium 3.8 mmol/L (3.6-5.0) D 12/16/18 04:44 Chloride 106.1 mmol/L (98-107) 12/16/18 04:44 Carbon Dioxide 24 mmol/L (22-30) 12/16/18 04:44 Anion Gap 15 mmol/L 12/16/18 04:44 BUN 11 mg/dL (9-20) 12/16/18 04:44 Creatinine 1.0 mg/dL (0.8-1.5) 12/16/18 04:44 Estimated GFR > 60 ml/min 12/16/18 04:44 BUN/Creatinine Ratio 11 % 12/16/18 04:44 Glucose 90 mg/dL (75-100) 12/16/18 04:44 Calcium 7.9 mg/dL (8.4-10.2) L 12/16/18 04:44 Total Bilirubin 0.80 mg/dL (0.1-1.2) 12/16/18 04:44 AST 53 units/L (5-40) H 12/16/18 04:44 ALT 34 units/L (7-56) 12/16/18 04:44 Alkaline Phosphatase 63 units/L (35-129) 12/16/18 04:44 Total Protein 5.4 g/dL (6.3-8.2) L 12/16/18 04:44 Albumin 3.4 g/dL (3.9-5) L 12/16/18 04:44 Albumin/Globulin Ratio 1.7 % 12/16/18 04:44 Amylase 60 units/L (27-131) 12/18/18 14:57 Active Medications - Current Medications Current Medications: Generic Name Dose Route Start Last Admin Trade Name Freq PRN Reason Stop Dose Admin Acetaminophen 650 mg 12/18/18 10:19 12/18/18 10:49 Tylenol PO 650 mg Q6H PRN Administration Pain, Mild (1-3) Bupropion HCl 75 mg 12/18/18 10:00 12/18/18 10:50 Wellbutrin PO 75 mg QDAY GILBERT Administration Diphenhydramine HCl 25 mg 12/15/18 23:14 12/16/18 17:32 Benadryl IV 25 mg Q6H PRN Administration Itching Sodium Chloride 1,000 mls @ 100 mls/hr 12/15/18 11:00 12/18/18 15:51 Nacl 0.9% 1000 Ml IV 100 mls/hr DIRECT GILBERT Administration Morphine Sulfate 2 mg 12/17/18 08:55 12/18/18 15:50 Morphine IV 2 mg Q6H PRN Administration Pain, Moderate (4-6) Ondansetron HCl 4 mg 12/15/18 12:14 12/17/18 13:46 Zofran IV 4 mg Q4H PRN Administration Nausea And Vomiting Pantoprazole Sodium 40 mg 12/17/18 10:00 12/18/18 10:49 Protonix PO 40 mg BID GILBERT Administration Sertraline HCl 25 mg 12/18/18 10:00 12/18/18 10:50 Zoloft PO 25 mg QDAY GILBERT Administration Sucralfate 1 gm 12/15/18 22:00 12/18/18 15:58 Carafate PO 1 gm ACHS GILBERT Administration
--- NOTE | 2018-12-18 20:41 | Gastroenterology Progress Note ---
Assessment and Plan Abdominal pain - epigastric and ruq; US with sludge. HIDA pending. noted plans for lap rickie per surgery will sign off, please call as needed. Subjective Date of service: 12/18/18 Principal diagnosis: abdominal pain Interval history: pt seen and examined; continues to have epigastric and right sided abd pain; occurred again after dinner last night. Objective - Constitutional Vitals: Temp Pulse Resp BP Pulse Ox 98.3 F 64 20 134/89 99 12/18/18 17:16 12/18/18 20:04 12/18/18 17:16 12/18/18 17:16 12/18/18 17:16 General appearance: no acute distress - Respiratory Respiratory effort: normal Respiratory: bilateral: CTA - Cardiovascular Rhythm: regular Heart Sounds: Present: S1 & S2 - Gastrointestinal General gastrointestinal: Present: soft, tender (right sided ttp), non-distended - Neurologic Neurological: alert and oriented x3 - Labs CBC & Chem 7: 12/16/18 04:44 12/16/18 04:44 Labs: Laboratory Results - last 24 hr 12/18/18 12/18/18 14:57 14:57 PT 12.3 INR 0.94 APTT 26.7 Amylase 60
[2018-12-18] MEDS: ONDANSETRON 4 MG/2 ML INJ IV PRN (21:24)
[2018-12-18] MEDS: diphenhydrAMINE 50 MG/ML VIAL IV PRN (21:25)
[2018-12-19] MEDS: SODIUM CHLORIDE 0.9% 1000 ML 1,000 ML IV SCH ×3 (01:14→22:26)
--- NOTE | 2018-12-19 03:14 | Consultation ---
REASON FOR CONSULTATION: Rule out gallbladder disease. HISTORY OF PRESENT ILLNESS: The patient is a 48-year-old gentleman who was admitted at this time with a chief complaint of right upper quadrant abdominal pain accompanied by nausea and vomiting. PAST MEDICAL HISTORY: The patient has a past medical history of posttraumatic stress disorder as well as depression. PAST SURGICAL HISTORY: Status post left groin hematoma evacuation years ago, presumably from strain and muscle tear. ALLERGIES: Allergic to an ANTIEMETIC, which caused glossitis. He is not sure which antibiotic it was, but he knows that it was not Zofran or Phenergan because he is taking both of those without any problems. MEDICATIONS: Include Wellbutrin, Zoloft and propranolol. FAMILY HISTORY: Negative. SOCIAL HISTORY: Admits to drinking 3-4 beers a day, but sometimes he drinks " Dips tobacco, denies any smoking. The patient was also evaluated by GI during this admission. It is noted that he had a recent EGD in [place] which shows some esophagitis, but no other upper GI issues. LABORATORY DATA: Lab work at present includes a CBC, which shows a white count of 6.5, H and H is 13 and 40. Electrolytes are essentially within normal limits. LFTs are also essentially normal including a total bilirubin of 0.8, AST is 53, ALT 54, alkaline phosphatase is 63. No amylase or clotting studies are noted. The patient has also had a CT of the abdomen as well as a gallbladder ultrasound and HIDA scan, which I have reviewed with the radiologist. A CT scan actually revealed no inflammatory changes around the gallbladder and no other gallbladder issues. A HIDA scan revealed some gallbladder sludge, but again no real thickened wall or pericholecystic fluid. A HIDA scan was also just completed and the gallbladder visualized within normal limits at around 20 minutes. Ejection fraction was 42%. However, it is documented by the patient that gallbladder stimulation did mimic the symptoms that he has been feeling. IMPRESSION: At this time is that of a 48-year-old gentleman with gallbladder sludge and possible biliary colic/dyskinesia. Discussing with the patient, the patient wishes to proceed with laparoscopic cholecystectomy during this admission. We will go ahead and order PT, PTT as well as an amylase and we will make arrangements for laparoscopic cholecystectomy. JOB# [id number] FP/NTS
[2018-12-19] MEDS: ONDANSETRON 4 MG/2 ML INJ IV PRN ×2 (04:49→22:25)
[2018-12-19] MEDS: MORPHINE 2 MG/1 ML INJ IV PRN ×4 (04:49→22:25)
--- NOTE | 2018-12-19 07:32 | Progress Note ---
Assessment and Plan Pt status quo. still c/o occ epig & RUQ abd pain Abd soft wbc, T Steve, LFT's and clotting studies wnl stable NPO after MN for lap GB in am Selected Entries 12/19/18 05:03 Temperature 98.0 F Pulse Rate 52 L Respiratory 16 Rate Blood Pressure 121/50 Laboratory Tests 12/16/18 12/16/18 12/18/18 04:44 04:44 14:57 WBC 6.5 Hgb 13.9 Hct 40.8 D PT 12.3 INR 0.94 APTT 26.7 Total Bilirubin 0.80 AST 53 H ALT 34 Alkaline Phosphatase 63 Amylase 12/18/18 14:57 WBC Hgb Hct PT INR APTT Total Bilirubin AST ALT Alkaline Phosphatase Amylase 60 Objective Vital Signs - 12hr 12/18/18 12/18/18 12/18/18 20:04 21:21 21:24 Temperature 98.1 F Pulse Rate 65 Pulse Rate [ 64 Apical] Respiratory 16 18 Rate Respiratory Rate [abd] Blood Pressure 123/78 O2 Sat by Pulse 96 Oximetry 12/18/18 12/18/18 12/19/18 21:54 22:00 04:49 Temperature Pulse Rate Pulse Rate [ Apical] Respiratory 18 18 Rate Respiratory 18 Rate [abd] Blood Pressure O2 Sat by Pulse Oximetry 12/19/18 05:03 Temperature 98.0 F Pulse Rate 52 L Pulse Rate [ Apical] Respiratory 16 Rate Respiratory Rate [abd] Blood Pressure 121/50 O2 Sat by Pulse 97 Oximetry - Labs 12/16/18 04:44 12/16/18 04:44
[2018-12-19] MEDS: SUCRALFATE 1 GM/10 ML ORAL LIQD PO SCH ×4 (09:54→22:26)
[2018-12-19] MEDS: SERTRALINE 25 MG TAB PO SCH (09:55)
[2018-12-19] MEDS: PANTOPRAZOLE 40 MG TAB PO SCH ×2 (09:55→22:26)
[2018-12-19] MEDS: buPROPion 75 MG TAB PO SCH (09:55)
--- NOTE | 2018-12-19 11:45 | Progress Note ---
Assessment and Plan Assessment and plan: --Right upper quadrant Abdominal pain; Gallbladder sludge without cholecystitis on ultrasound HIDA scan findings reviewed Surgery planning cholecystectomy tomorrow --Possible upper GI bleeding/h/o coffee-ground emesis; Resolved, GI following, no plans of endoscopy H&H stable --Leukocytosis; resolved --Substance abuse; tobacco, alcohol, cocaine Strongly advised to quit recreational drug use Smoking cessation, advised to quit alcohol intake --DVT prophylaxis; SCD Continue current management Plan of care is reviewed with the patient and his nurse If lap cholecystectomy is uneventful and the patient is stable Patient may be discharged tomorrow. Plan of care reviewed with the patient and the nurse History Interval history: Patient seen and examined medical records reviewed Patient feels slightly better Continues to have intermittent right upper quadrant pain Schedule for cholecystectomy tomorrow Vital signs noted Hospitalist Physical - Constitutional Vitals: Temp Pulse Resp BP Pulse Ox 98.0 F 52 L 18 121/50 97 12/19/18 05:03 12/19/18 05:03 12/19/18 05:19 12/19/18 05:03 12/19/18 05:03 General appearance: Present: no acute distress, well-nourished - EENT Eyes: Present: PERRL, EOM intact - Neck Neck: Present: supple, normal ROM - Respiratory Respiratory effort: normal Respiratory: bilateral: diminished, negative: rales, rhonchi, wheezing - Cardiovascular Rhythm: regular Heart Sounds: Present: S1 & S2 - Extremities Extremities: no ischemia, No edema - Abdominal General gastrointestinal: soft, tender (right upper quadrant /no guarding no rigidity), normal bowel sounds - Integumentary Integumentary: Present: clear, warm - Psychiatric Psychiatric: appropriate mood/affect, cooperative - Neurologic Neurologic: CNII-XII intact, moves all extremities Results - Labs CBC & Chem 7: 12/16/18 04:44 12/16/18 04:44 Labs: Laboratory Last Values WBC 6.5 K/mm3 (4.5-11.0) 12/16/18 04:44 RBC 4.68 M/mm3 (3.65-5.03) 12/16/18 04:44 Hgb 13.9 gm/dl (11.8-15.2) 12/16/18 04:44 Hct 40.8 % (35.5-45.6) D 12/16/18 04:44 MCV 87 fl (84-94) 12/16/18 04:44 MCH 30 pg (28-32) 12/16/18 04:44 MCHC 34 % (32-34) 12/16/18 04:44 RDW 15.3 % (13.2-15.2) H 12/16/18 04:44 Plt Count 191 K/mm3 (140-440) 12/16/18 04:44 Lymph % (Auto) 29.7 % (13.4-35.0) 12/16/18 04:44 [place] % (Auto) 10.2 % (0.0-7.3) H 12/16/18 04:44 Eos % (Auto) 2.9 % (0.0-4.3) 12/16/18 04:44 Baso % (Auto) 1.1 % (0.0-1.8) 12/16/18 04:44 Lymph # 1.9 K/mm3 (1.2-5.4) 12/16/18 04:44 [place] # 0.7 K/mm3 (0.0-0.8) 12/16/18 04:44 Eos # 0.2 K/mm3 (0.0-0.4) 12/16/18 04:44 Baso # 0.1 K/mm3 (0.0-0.1) 12/16/18 04:44 Add Manual Diff Complete 12/15/18 05:06 Total Counted 100 12/15/18 05:06 Seg Neutrophils % 56.1 % (40.0-70.0) 12/16/18 04:44 Seg Neuts % (Manual) 94.0 % (40.0-70.0) H 12/15/18 05:06 Band Neutrophils % 0 % 12/15/18 05:06 Lymphocytes % (Manual) 3.0 % (13.4-35.0) L 12/15/18 05:06 Reactive Lymphs % (Man) 0 % 12/15/18 05:06 Monocytes % (Manual) 3.0 % (0.0-7.3) 12/15/18 05:06 Eosinophils % (Manual) 0 % (0.0-4.3) 12/15/18 05:06 Basophils % (Manual) 0 % (0.0-1.8) 12/15/18 05:06 Metamyelocytes % 0 % 12/15/18 05:06 Myelocytes % 0 % 12/15/18 05:06 Promyelocytes % 0 % 12/15/18 05:06 Blast Cells % 0 % 12/15/18 05:06 Nucleated RBC % Not Reportable 12/15/18 05:06 Seg Neutrophils # 3.6 K/mm3 (1.8-7.7) 12/16/18 04:44 Seg Neutrophils # Man 19.2 K/mm3 (1.8-7.7) H 12/15/18 05:06 Band Neutrophils # 0.0 K/mm3 12/15/18 05:06 Lymphocytes # (Manual) 0.6 K/mm3 (1.2-5.4) L 12/15/18 05:06 Abs React Lymphs (Man) 0.0 K/mm3 12/15/18 05:06 Monocytes # (Manual) 0.6 K/mm3 (0.0-0.8) 12/15/18 05:06 Eosinophils # (Manual) 0.0 K/mm3 (0.0-0.4) 12/15/18 05:06 Basophils # (Manual) 0.0 K/mm3 (0.0-0.1) 12/15/18 05:06 Metamyelocytes # 0.0 K/mm3 12/15/18 05:06 Myelocytes # 0.0 K/mm3 12/15/18 05:06 Promyelocytes # 0.0 K/mm3 12/15/18 05:06 Blast Cells # 0.0 K/mm3 12/15/18 05:06 WBC Morphology Not Reportable 12/15/18 05:06 Hypersegmented Neuts Not Reportable 12/15/18 05:06 Hyposegmented Neuts Not Reportable 12/15/18 05:06 Hypogranular Neuts Not Reportable 12/15/18 05:06 Smudge Cells Not Reportable 12/15/18 05:06 Toxic Granulation Not Reportable 12/15/18 05:06 Toxic Vacuolation Not Reportable 12/15/18 05:06 Dohle Bodies Not Reportable 12/15/18 05:06 Pelger-Huet Anomaly Not Reportable 12/15/18 05:06 Yue Rods Not Reportable 12/15/18 05:06 Platelet Estimate Consistent w auto 12/15/18 05:06 Clumped Platelets Not Reportable 12/15/18 05:06 Plt Clumps, EDTA Not Reportable 12/15/18 05:06 Large Platelets Not Reportable 12/15/18 05:06 Giant Platelets Not Reportable 12/15/18 05:06 Platelet Satelliting Not Reportable 12/15/18 05:06 Plt Morphology Comment Not Reportable 12/15/18 05:06 RBC Morphology Not Reportable 12/15/18 05:06 Dimorphic RBCs Not Reportable 12/15/18 05:06 Polychromasia Not Reportable 12/15/18 05:06 Hypochromasia Not Reportable 12/15/18 05:06 Poikilocytosis Not Reportable 12/15/18 05:06 Anisocytosis Few 12/15/18 05:06 Microcytosis Not Reportable 12/15/18 05:06 Macrocytosis Not Reportable 12/15/18 05:06 Spherocytes Not Reportable 12/15/18 05:06 Pappenheimer Bodies Not Reportable 12/15/18 05:06 Sickle Cells Not Reportable 12/15/18 05:06 Target Cells Not Reportable 12/15/18 05:06 Tear Drop Cells Not Reportable 12/15/18 05:06 Ovalocytes Not Reportable 12/15/18 05:06 Helmet Cells Not Reportable 12/15/18 05:06 [place] Bodies Not Reportable 12/15/18 05:06 [place] Rings Not Reportable 12/15/18 05:06 [place] Cells Not Reportable 12/15/18 05:06 Bite Cells Not Reportable 12/15/18 05:06 Crenated Cell Not Reportable 12/15/18 05:06 Elliptocytes Not Reportable 12/15/18 05:06 Acanthocytes (Spur) Not Reportable 12/15/18 05:06 Rouleaux Not Reportable 12/15/18 05:06 Hemoglobin C Crystals Not Reportable 12/15/18 05:06 Schistocytes Not Reportable 12/15/18 05:06 Malaria parasites Not Reportable 12/15/18 05:06 Francis Bodies Not Reportable 12/15/18 05:06 Hem Pathologist Commnt No 12/15/18 05:06 PT 12.3 Sec. (12.2-14.9) 12/18/18 14:57 INR 0.94 (0.87-1.13) 12/18/18 14:57 APTT 26.7 Sec. (24.2-36.6) 12/18/18 14:57 Sodium 141 mmol/L (137-145) 12/16/18 04:44 Potassium 3.8 mmol/L (3.6-5.0) D 12/16/18 04:44 Chloride 106.1 mmol/L (98-107) 12/16/18 04:44 Carbon Dioxide 24 mmol/L (22-30) 12/16/18 04:44 Anion Gap 15 mmol/L 12/16/18 04:44 BUN 11 mg/dL (9-20) 12/16/18 04:44 Creatinine 1.0 mg/dL (0.8-1.5) 12/16/18 04:44 Estimated GFR > 60 ml/min 12/16/18 04:44 BUN/Creatinine Ratio 11 % 12/16/18 04:44 Glucose 90 mg/dL (75-100) 12/16/18 04:44 Calcium 7.9 mg/dL (8.4-10.2) L 12/16/18 04:44 Total Bilirubin 0.80 mg/dL (0.1-1.2) 12/16/18 04:44 AST 53 units/L (5-40) H 12/16/18 04:44 ALT 34 units/L (7-56) 12/16/18 04:44 Alkaline Phosphatase 63 units/L (35-129) 12/16/18 04:44 Total Protein 5.4 g/dL (6.3-8.2) L 12/16/18 04:44 Albumin 3.4 g/dL (3.9-5) L 12/16/18 04:44 Albumin/Globulin Ratio 1.7 % 12/16/18 04:44 Amylase 60 units/L (27-131) 12/18/18 14:57 Active Medications - Current Medications Current Medications: Generic Name Dose Route Start Last Admin Trade Name Freq PRN Reason Stop Dose Admin Acetaminophen 650 mg 12/18/18 10:19 12/18/18 10:49 Tylenol PO 650 mg Q6H PRN Administration Pain, Mild (1-3) Bupropion HCl 75 mg 12/18/18 10:00 12/19/18 09:55 Wellbutrin PO 75 mg QDAY GILBERT Administration Diphenhydramine HCl 25 mg 12/15/18 23:14 12/18/18 21:25 Benadryl IV 25 mg Q6H PRN Administration Itching Sodium Chloride 1,000 mls @ 100 mls/hr 12/15/18 11:00 12/19/18 11:11 Nacl 0.9% 1000 Ml IV 100 mls/hr DIRECT GILBERT Administration Morphine Sulfate 2 mg 12/17/18 08:55 12/19/18 11:10 Morphine IV 2 mg Q6H PRN Administration Pain, Moderate (4-6) Ondansetron HCl 4 mg 12/15/18 12:14 12/19/18 04:49 Zofran IV 4 mg Q4H PRN Administration Nausea And Vomiting Pantoprazole Sodium 40 mg 12/17/18 10:00 12/19/18 09:55 Protonix PO 40 mg BID GILBERT Administration Sertraline HCl 25 mg 12/18/18 10:00 12/19/18 09:55 Zoloft PO 25 mg QDAY GILBERT Administration Sucralfate 1 gm 12/15/18 22:00 12/19/18 09:54 Carafate PO 1 gm ACHS GILBERT Administration
[2018-12-19] MEDS: diphenhydrAMINE 50 MG/ML VIAL IV PRN (22:25)
[2018-12-20] MEDS: MORPHINE 2 MG/1 ML INJ IV PRN ×3 (05:58→22:23)
[2018-12-20] MEDS: ONDANSETRON 4 MG/2 ML INJ IV PRN ×2 (05:59→14:35)
[2018-12-20] MEDS ORDERED: BUPIVACAINE-EPINEPHRINE/PF 0.5%-1:200,000 (30 ML) VIAL INFILTRATI ONE ×3 (07:38→11:19)
--- NOTE | 2018-12-20 08:25 | Progress Note ---
Assessment and Plan Assessment and plan: --Right upper quadrant Abdominal pain; scheduled for for cholecystectomy today Gallbladder sludge without cholecystitis on ultrasound HIDA scan findings reviewed Surgery planning cholecystectomy tomorrow --SIRS; present on admission, probably secondary to gallbladder disease --H/O upper GI bleeding/h/o coffee-ground emesis; No new Episodes since admission GI evaluated the patient , H&H , vitals stable no plans of endoscopy --Leukocytosis; resolved --Substance abuse; tobacco, alcohol, cocaine Strongly advised to quit recreational drug use Smoking cessation, advised to quit alcohol intake --DVT prophylaxis; SCD Continue current management Plan of care is reviewed with the patient and his nurse If lap cholecystectomy is uneventful and the patient is stable Patient may be discharged tomorrow. Plan of care reviewed with the patient and the nurse History Interval history: Patient seen and examined ,medical records reviewed Patient is scheduled for cholecystectomy today Alert awake oriented 3 Vital signs reviewed Hospitalist Physical - Constitutional Vitals: Temp Pulse Resp BP Pulse Ox 97.8 F 61 18 112/75 94 12/20/18 05:02 12/20/18 05:02 12/20/18 06:28 12/20/18 05:02 12/20/18 05:02 General appearance: Present: no acute distress, well-nourished - EENT Eyes: Present: PERRL, EOM intact - Neck Neck: Present: supple, normal ROM - Respiratory Respiratory effort: normal Respiratory: bilateral: diminished, negative: rales, rhonchi, wheezing - Cardiovascular Rhythm: regular Heart Sounds: Present: S1 & S2 - Extremities Extremities: no ischemia, No edema - Abdominal General gastrointestinal: soft, non-tender, non-distended, normal bowel sounds - Integumentary Integumentary: Present: clear, warm - Psychiatric Psychiatric: appropriate mood/affect, cooperative - Neurologic Neurologic: CNII-XII intact, moves all extremities Results - Labs CBC & Chem 7: 12/16/18 04:44 12/16/18 04:44 Labs: Laboratory Last Values WBC 6.5 K/mm3 (4.5-11.0) 12/16/18 04:44 RBC 4.68 M/mm3 (3.65-5.03) 12/16/18 04:44 Hgb 13.9 gm/dl (11.8-15.2) 12/16/18 04:44 Hct 40.8 % (35.5-45.6) D 12/16/18 04:44 MCV 87 fl (84-94) 12/16/18 04:44 MCH 30 pg (28-32) 12/16/18 04:44 MCHC 34 % (32-34) 12/16/18 04:44 RDW 15.3 % (13.2-15.2) H 12/16/18 04:44 Plt Count 191 K/mm3 (140-440) 12/16/18 04:44 Lymph % (Auto) 29.7 % (13.4-35.0) 12/16/18 04:44 [place] % (Auto) 10.2 % (0.0-7.3) H 12/16/18 04:44 Eos % (Auto) 2.9 % (0.0-4.3) 12/16/18 04:44 Baso % (Auto) 1.1 % (0.0-1.8) 12/16/18 04:44 Lymph # 1.9 K/mm3 (1.2-5.4) 12/16/18 04:44 [place] # 0.7 K/mm3 (0.0-0.8) 12/16/18 04:44 Eos # 0.2 K/mm3 (0.0-0.4) 12/16/18 04:44 Baso # 0.1 K/mm3 (0.0-0.1) 12/16/18 04:44 Add Manual Diff Complete 12/15/18 05:06 Total Counted 100 12/15/18 05:06 Seg Neutrophils % 56.1 % (40.0-70.0) 12/16/18 04:44 Seg Neuts % (Manual) 94.0 % (40.0-70.0) H 12/15/18 05:06 Band Neutrophils % 0 % 12/15/18 05:06 Lymphocytes % (Manual) 3.0 % (13.4-35.0) L 12/15/18 05:06 Reactive Lymphs % (Man) 0 % 12/15/18 05:06 Monocytes % (Manual) 3.0 % (0.0-7.3) 12/15/18 05:06 Eosinophils % (Manual) 0 % (0.0-4.3) 12/15/18 05:06 Basophils % (Manual) 0 % (0.0-1.8) 12/15/18 05:06 Metamyelocytes % 0 % 12/15/18 05:06 Myelocytes % 0 % 12/15/18 05:06 Promyelocytes % 0 % 12/15/18 05:06 Blast Cells % 0 % 12/15/18 05:06 Nucleated RBC % Not Reportable 12/15/18 05:06 Seg Neutrophils # 3.6 K/mm3 (1.8-7.7) 12/16/18 04:44 Seg Neutrophils # Man 19.2 K/mm3 (1.8-7.7) H 12/15/18 05:06 Band Neutrophils # 0.0 K/mm3 12/15/18 05:06 Lymphocytes # (Manual) 0.6 K/mm3 (1.2-5.4) L 12/15/18 05:06 Abs React Lymphs (Man) 0.0 K/mm3 12/15/18 05:06 Monocytes # (Manual) 0.6 K/mm3 (0.0-0.8) 12/15/18 05:06 Eosinophils # (Manual) 0.0 K/mm3 (0.0-0.4) 12/15/18 05:06 Basophils # (Manual) 0.0 K/mm3 (0.0-0.1) 12/15/18 05:06 Metamyelocytes # 0.0 K/mm3 12/15/18 05:06 Myelocytes # 0.0 K/mm3 12/15/18 05:06 Promyelocytes # 0.0 K/mm3 12/15/18 05:06 Blast Cells # 0.0 K/mm3 12/15/18 05:06 WBC Morphology Not Reportable 12/15/18 05:06 Hypersegmented Neuts Not Reportable 12/15/18 05:06 Hyposegmented Neuts Not Reportable 12/15/18 05:06 Hypogranular Neuts Not Reportable 12/15/18 05:06 Smudge Cells Not Reportable 12/15/18 05:06 Toxic Granulation Not Reportable 12/15/18 05:06 Toxic Vacuolation Not Reportable 12/15/18 05:06 Dohle Bodies Not Reportable 12/15/18 05:06 Pelger-Huet Anomaly Not Reportable 12/15/18 05:06 Yue Rods Not Reportable 12/15/18 05:06 Platelet Estimate Consistent w auto 12/15/18 05:06 Clumped Platelets Not Reportable 12/15/18 05:06 Plt Clumps, EDTA Not Reportable 12/15/18 05:06 Large Platelets Not Reportable 12/15/18 05:06 Giant Platelets Not Reportable 12/15/18 05:06 Platelet Satelliting Not Reportable 12/15/18 05:06 Plt Morphology Comment Not Reportable 12/15/18 05:06 RBC Morphology Not Reportable 12/15/18 05:06 Dimorphic RBCs Not Reportable 12/15/18 05:06 Polychromasia Not Reportable 12/15/18 05:06 Hypochromasia Not Reportable 12/15/18 05:06 Poikilocytosis Not Reportable 12/15/18 05:06 Anisocytosis Few 12/15/18 05:06 Microcytosis Not Reportable 12/15/18 05:06 Macrocytosis Not Reportable 12/15/18 05:06 Spherocytes Not Reportable 12/15/18 05:06 Pappenheimer Bodies Not Reportable 12/15/18 05:06 Sickle Cells Not Reportable 12/15/18 05:06 Target Cells Not Reportable 12/15/18 05:06 Tear Drop Cells Not Reportable 12/15/18 05:06 Ovalocytes Not Reportable 12/15/18 05:06 Helmet Cells Not Reportable 12/15/18 05:06 [place] Bodies Not Reportable 12/15/18 05:06 [place] Rings Not Reportable 12/15/18 05:06 [place] Cells Not Reportable 12/15/18 05:06 Bite Cells Not Reportable 12/15/18 05:06 Crenated Cell Not Reportable 12/15/18 05:06 Elliptocytes Not Reportable 12/15/18 05:06 Acanthocytes (Spur) Not Reportable 12/15/18 05:06 Rouleaux Not Reportable 12/15/18 05:06 Hemoglobin C Crystals Not Reportable 12/15/18 05:06 Schistocytes Not Reportable 12/15/18 05:06 Malaria parasites Not Reportable 12/15/18 05:06 Francis Bodies Not Reportable 12/15/18 05:06 Hem Pathologist Commnt No 12/15/18 05:06 PT 12.3 Sec. (12.2-14.9) 12/18/18 14:57 INR 0.94 (0.87-1.13) 12/18/18 14:57 APTT 26.7 Sec. (24.2-36.6) 12/18/18 14:57 Sodium 141 mmol/L (137-145) 12/16/18 04:44 Potassium 3.8 mmol/L (3.6-5.0) D 12/16/18 04:44 Chloride 106.1 mmol/L (98-107) 12/16/18 04:44 Carbon Dioxide 24 mmol/L (22-30) 12/16/18 04:44 Anion Gap 15 mmol/L 12/16/18 04:44 BUN 11 mg/dL (9-20) 12/16/18 04:44 Creatinine 1.0 mg/dL (0.8-1.5) 12/16/18 04:44 Estimated GFR > 60 ml/min 12/16/18 04:44 BUN/Creatinine Ratio 11 % 12/16/18 04:44 Glucose 90 mg/dL (75-100) 12/16/18 04:44 Calcium 7.9 mg/dL (8.4-10.2) L 12/16/18 04:44 Total Bilirubin 0.80 mg/dL (0.1-1.2) 12/16/18 04:44 AST 53 units/L (5-40) H 12/16/18 04:44 ALT 34 units/L (7-56) 12/16/18 04:44 Alkaline Phosphatase 63 units/L (35-129) 12/16/18 04:44 Total Protein 5.4 g/dL (6.3-8.2) L 12/16/18 04:44 Albumin 3.4 g/dL (3.9-5) L 12/16/18 04:44 Albumin/Globulin Ratio 1.7 % 12/16/18 04:44 Amylase 60 units/L (27-131) 12/18/18 14:57 Active Medications - Current Medications Current Medications: Generic Name Dose Route Start Last Admin Trade Name Freq PRN Reason Stop Dose Admin Acetaminophen 650 mg 12/18/18 10:19 12/18/18 10:49 Tylenol PO 650 mg Q6H PRN Administration Pain, Mild (1-3) Bupropion HCl 75 mg 12/18/18 10:00 12/19/18 09:55 Wellbutrin PO 75 mg QDAY GILBERT Administration Diphenhydramine HCl 25 mg 12/15/18 23:14 12/19/18 22:25 Benadryl IV 25 mg Q6H PRN Administration Itching Sodium Chloride 1,000 mls @ 100 mls/hr 12/15/18 11:00 12/19/18 22:26 Nacl 0.9% 1000 Ml IV 100 mls/hr DIRECT GILBERT Administration Morphine Sulfate 2 mg 12/17/18 08:55 12/20/18 05:58 Morphine IV 2 mg Q6H PRN Administration Pain, Moderate (4-6) Ondansetron HCl 4 mg 12/15/18 12:14 12/20/18 05:59 Zofran IV 4 mg Q4H PRN Administration Nausea And Vomiting Pantoprazole Sodium 40 mg 12/17/18 10:00 12/19/18 22:26 Protonix PO 40 mg BID GILBERT Administration Sertraline HCl 25 mg 12/18/18 10:00 12/19/18 09:55 Zoloft PO 25 mg QDAY GILBERT Administration Sucralfate 1 gm 12/15/18 22:00 12/19/18 22:26 Carafate PO 1 gm ACHS GILBERT Administration
[2018-12-20] MEDS ORDERED: ONDANSETRON 4 MG/2 ML INJ IV PRN (10:17)
[2018-12-20] MEDS ORDERED: fentaNYL 100 MCG/2 ML INJ IV PRN (10:17)
--- NOTE | 2018-12-20 10:22 | Anesthesia Day of Surgery ---
Anesthesia Day of Surgery - Day of Surgery Patient Examined: Yes Patient H&P Reviewed: Yes Patient is NPO: Yes
--- NOTE | 2018-12-20 10:25 | Anesthesia Consultation ---
Anesthesia Consult and Med Hx Date of service: 12/20/18 - Airway Anesthetic Teeth Evaluation: Chipped ROM Head & Neck: Adequate Mental/Hyoid Distance: Adequate Mallampati Class: Class II Intubation Access Assessment: Probably Good - Pre-Operative Health Status ASA Pre-Surgery Classification: ASA3 Proposed Anesthetic Plan: General - Pulmonary Hx Smoking: Yes (Dips; Remote history 20+ years) Hx Asthma: No COPD: No Hx Pneumonia: No Hx Sleep Apnea: No - Cardiovascular System Hx Hypertension: No Hx Cardia Arrhythmia: Yes (Palpitations from meds; on inderal) - Central Nervous System Hx Neuromuscular Disorder: No Hx Seizures: No CVA: No Hx Back Pain: No Hx Psychiatric Problems: Yes (PTSD/Depression) - Gastrointestinal Hx Gastroesophageal Reflux Disease: Yes - Endocrine Hx Renal Disease: No Hx End Stage Renal Disease: No Hx Liver Disease: No Hx Insulin Dependent Diabetes: No Hx Non-Insulin Dependent Diabetes: No Hx Thyroid Disease: No - Other Systems Hx Alcohol Use: No Hx Substance Use: No Hx Cancer: No
[2018-12-20] MEDS ORDERED: MORPHINE 2 MG/1 ML INJ IV ONE (10:27)
[2018-12-20] MEDS ORDERED: ACETAMINOPHEN 325 MG TAB PO ONE (10:27)
[2018-12-20] MEDS ORDERED: PROPOFOL 200 MG/20 ML VIAL IV ONE (10:30)
[2018-12-20] MEDS ORDERED: LIDOCAINE MPF (2%) 20 MG/1 ML VIAL 5 ML ONE (10:30)
[2018-12-20] MEDS ORDERED: dexAMETHasone 20 MG/5 ML VIAL ONE (10:30)
[2018-12-20] MEDS ORDERED: fentaNYL 250 MCG/5 ML INJ ONE (10:30)
[2018-12-20] MEDS ORDERED: ROCURONIUM 50 MG/5 ML INJ IV ONE (10:30)
[2018-12-20] MEDS ORDERED: ONDANSETRON 4 MG/2 ML INJ ONE (10:30)
[2018-12-20] MEDS ORDERED: KETAMINE/STERILE WATER 50 MG/ML SYRINGE ONE (10:37)
[2018-12-20] MEDS ORDERED: MIDAZOLAM 2 MG/2 ML INJ IV NR (11:00)
[2018-12-20] MEDS ORDERED: CELECOXIB 200 MG CAP PO NR (11:00)
[2018-12-20] MEDS ORDERED: GABAPENTIN 300 MG CAP PO NR (11:00)
[2018-12-20] MEDS ORDERED: GLYCOPYRROLATE 0.4 MG/2 ML INJ ONE (11:44)
[2018-12-20] MEDS ORDERED: NEOSTIGMINE 10MG/10 ML INJ MDV ONE (11:44)
[2018-12-20] MEDS: SUCRALFATE 1 GM/10 ML ORAL LIQD PO SCH ×3 (11:57→22:22)
[2018-12-20] MEDS: PANTOPRAZOLE 40 MG TAB PO SCH ×2 (11:57→22:22)
[2018-12-20] MEDS: HYDROmorphone 1 MG/1 ML INJ IV PRN ×4 (12:15→12:55)
--- NOTE | 2018-12-20 13:20 | Operative Report ---
PREOPERATIVE DIAGNOSIS: Gallbladder disease. POSTOPERATIVE DIAGNOSIS: Gallbladder disease. PROCEDURE: Laparoscopic cholecystectomy. SURGEON: Regulo Jarrett MD VOLUNTEER SPECIALIST: Dr. Carcamo. ANESTHESIA: General. ESTIMATED BLOOD LOSS: Minimal. DRAINS: None. COMPLICATIONS: None. PROCEDURE IN DETAIL: The patient was taken to the operating room, prepped and draped in usual sterile fashion. A Veress needle was inserted and CO2 insufflation begun. A 5 mm trocar was then inserted and camera inserted. All other trocars were inserted under direct visualization. Gallbladder was then grasped at the fundus and infundibulum and retracted towards the right subphrenic space. Dissection was then carried out along Calot's triangle. The cystic duct and artery were delineated in their entire course. Both were then doubly clipped and transected. Hook electrocautery was used to dissect the gallbladder from the overlying liver bed. Prior to complete removal, the liver bed was inspected for bleeding and noted to be dry. The cystic duct and artery stumps were once again visualized. The clips were noted to be securely in place with no evidence of bleeding or bile leak. Gallbladder was then completely freed and brought out through the subxiphoid port. This area was inspected for bleeding and noted to be dry. Subxiphoid trocar was then gently reinserted. The entire right upper quadrant was copiously irrigated and suctioned dry. Once again checked for hemostasis and noted to be dry. The 5 mm ports were removed under direct visualization. No bleeding or oozing noted. The subxiphoid trocar was then used to expel the CO2 and the trocar was removed. The fascia at this site was closed with a [id number] 0 Vicryl suture. The skin at all port sites was closed with subcuticular 4-0 Vicryl. A 0.5% Marcaine was infiltrated over the port site for postoperative pain relief. The patient tolerated the procedure well and left the OR in stable condition. JOB# [id number] JOLYNN/ROCAEL
[2018-12-20] MEDS: HYDROcodone/ACETAMINOPHEN 5-325 MG TAB PO PRN ×2 (14:29→19:19)
[2018-12-20] MEDS: SERTRALINE 25 MG TAB PO SCH (14:29)
[2018-12-20] MEDS: buPROPion 75 MG TAB PO SCH (14:29)
[2018-12-20] MEDS: SODIUM CHLORIDE 0.9% 1000 ML 1,000 ML IV SCH (14:30)
[2018-12-20] MEDS: diphenhydrAMINE 50 MG/ML VIAL IV PRN (14:41)
--- NOTE | 2018-12-20 15:53 | Post Anesthesia Evaluation ---
- Post Anesthesia Evaluation Patient Participated: Yes Airway Patent: Yes Stable Respiratory Function: Yes Nausea/Vomiting: No Temp > 96.8F: Yes Pain Manageable: Yes Adequeate Hydration: Yes Anesthesia Complications: No Block Receding Appropriately: Not Applicable Patient on Ventilator: No
[2018-12-21] MEDS: MORPHINE 2 MG/1 ML INJ IV PRN ×2 (04:14→10:56)
[2018-12-21 05:48] LABS: Basophils # (Auto) 0.1 K/mm3 (0.0-0.1); Basophils % (Auto) 0.5 % (0.0-1.8); Hematocrit 42.2 % (35.5-45.6); Hemoglobin 14.3 gm/dl (11.8-15.2); Lymphocytes # (Auto) 0.8 K/mm3 (1.2-5.4); Lymphocytes % (Auto) 6.8 % (13.4-35.0); Mean Corpuscular HGB Conc 34 % (32-34); Mean Corpuscular Volume 87 fl (84-94); Monocytes # (Auto) 0.9 K/mm3 (0.0-0.8); Monocytes % (Auto) 7.6 % (0.0-7.3); Platelet Count 223 K/mm3 (140-440); Red Blood Count 4.88 M/mm3 (3.65-5.03); Red Cell Distribution Width 14.6 % (13.2-15.2)
[2018-12-21 06:16] LABS: Alanine Aminotransferase 70 units/L (7-56); Albumin 3.6 g/dL (3.9-5); BUN/Creatinine Ratio 11; Blood Urea Nitrogen 9 mg/dL (9-20); Calcium 8.5 mg/dL (8.4-10.2); Hemolysis Index 22
[2018-12-21] MEDS: SODIUM CHLORIDE 0.9% 1000 ML 1,000 ML IV SCH (07:38)
[2018-12-21] MEDS: SUCRALFATE 1 GM/10 ML ORAL LIQD PO SCH ×2 (09:07→13:20)
[2018-12-21] MEDS: buPROPion 75 MG TAB PO SCH (10:28)
[2018-12-21] MEDS: SERTRALINE 25 MG TAB PO SCH (10:29)
[2018-12-21] MEDS: PANTOPRAZOLE 40 MG TAB PO SCH (10:29)
--- NOTE | 2018-12-21 12:27 | Progress Note ---
Assessment and Plan POD # 1 Pt feeling well without compl. feeling "much better" Abd soft, non tender post op LFT's wnl low fat cl liq may d/c today from surg perspective if diet magui advance to solid low fat diet at home in am no lifting over 5 lbs x 2 wks keep dressings dry x 5 days RTO next Fri Selected Entries 12/21/18 06:12 Temperature 97.7 F Pulse Rate 80 Respiratory 18 Rate Blood Pressure 129/84 Laboratory Tests 12/16/18 12/21/18 04:44 05:28 Total Bilirubin 0.80 0.70 ALT 70 H Alkaline Phosphatase 69 Objective Vital Signs - 12hr 12/21/18 12/21/18 12/21/18 04:14 04:44 06:12 Temperature 97.7 F Pulse Rate 80 Respiratory 17 17 18 Rate Blood Pressure 129/84 O2 Sat by Pulse 96 Oximetry - Labs 12/21/18 05:28 12/21/18 05:28 Diabetes panel 12/21/18 Range/Units 05:28 Sodium 138 (137-145) mmol/L Potassium 4.2 (3.6-5.0) mmol/L Chloride 105.4 (98-107) mmol/L Carbon Dioxide 21 L (22-30) mmol/L BUN 9 (9-20) mg/dL Creatinine 0.8 (0.8-1.5) mg/dL Glucose 115 H (75-100) mg/dL Calcium 8.5 (8.4-10.2) mg/dL AST 113 H (5-40) units/L ALT 70 H (7-56) units/L Alkaline Phosphatase 69 (35-129) units/L Total Protein 6.2 L (6.3-8.2) g/dL Albumin 3.6 L (3.9-5) g/dL Calcium panel 12/21/18 Range/Units 05:28 Calcium 8.5 (8.4-10.2) mg/dL Albumin 3.6 L (3.9-5) g/dL Pituitary panel 12/21/18 Range/Units 05:28 Sodium 138 (137-145) mmol/L Potassium 4.2 (3.6-5.0) mmol/L Chloride 105.4 (98-107) mmol/L Carbon Dioxide 21 L (22-30) mmol/L BUN 9 (9-20) mg/dL Creatinine 0.8 (0.8-1.5) mg/dL Glucose 115 H (75-100) mg/dL Calcium 8.5 (8.4-10.2) mg/dL Adrenal panel 12/21/18 Range/Units 05:28 Sodium 138 (137-145) mmol/L Potassium 4.2 (3.6-5.0) mmol/L Chloride 105.4 (98-107) mmol/L Carbon Dioxide 21 L (22-30) mmol/L BUN 9 (9-20) mg/dL Creatinine 0.8 (0.8-1.5) mg/dL Glucose 115 H (75-100) mg/dL Calcium 8.5 (8.4-10.2) mg/dL Total Bilirubin 0.70 (0.1-1.2) mg/dL AST 113 H (5-40) units/L ALT 70 H (7-56) units/L Alkaline Phosphatase 69 (35-129) units/L Total Protein 6.2 L (6.3-8.2) g/dL Albumin 3.6 L (3.9-5) g/dL
[2018-12-21 12:46] VITALS: BP 128/89
[2018-12-21] MEDS: HYDROcodone/ACETAMINOPHEN 5-325 MG TAB PO PRN (13:23)
--- NOTE | 2018-12-21 14:47 | Discharge Summary ---
Providers - Providers Date of Admission: 12/15/18 08:51 Date of discharge: 12/21/18 Attending physician: ALEKSANDR FU 12/15/18 11:36 Consult to Physician [CONS] Routine Comment: Consulting Provider: AGNES LEROY Physician Instructions: Reason For Exam: h/o coffee ground emesis/abd pain 12/17/18 14:39 Consult to Physician [CONS] Routine Comment: Consulting Provider: RUSTAM JACKSON Physician Instructions: Reason For Exam: right upper quadrant pain/gallbladder sludge on US Primary care physician: [facility] [facility] Hospitalization Reason for admission: abdominal pain/coffee ground emesis Condition: Fair Pertinent studies: CT abdomen and pelvis Abdominal ultrasound HIDA scan Procedures: Lap cholecystectomy Hospital course: 48-year-old male pt with a history of esophagitis, PTSD, presented to the emergency room with abdominal pain nausea vomiting, coffee-ground emesis multiple times this morning prior to arrival. Patient was initially evaluated admitted to the hospital symptomatically managed evaluated by GI, H&H was stable and no new episodes of bleeding, did not plan endoscopy. Patient continues to have right upper quadrant pain, evaluated by surgery, patient had CT abdomen and pelvis abdominal ultrasound and HIDA scan, underwent lap cholecystectomy. Patient's symptoms gradually and significantly improved Today patient is comfortable no new complaints vital signs stable physical examination unremarkable Patient is hemodynamically and clinically stable for discharge Cleared by all the consultants to DC and follow-up per schedule Discharge diagnosis --Right upper quadrant Abdominal pain; Gallbladder sludge without cholecystitis on ultrasound HIDA scan findings reviewed s/p Lap cholecystectomy --SIRS; present on admission, probably secondary to gallbladder disease --H/O upper GI bleeding/h/o coffee-ground emesis; No new Episodes since admission GI evaluated the patient , H&H , vitals stable no plans of endoscopy --Leukocytosis; resolved --Substance abuse; tobacco, alcohol, cocaine Strongly advised to quit recreational drug use Smoking cessation, advised to quit alcohol intake --DVT prophylaxis; SCD Continue current management Plan of care is reviewed with the patient and his nurse If lap cholecystectomy is uneventful and the patient is stable Stable at discharge Disposition: NM-01 TO HOME OR SELFCARE Time spent for discharge: 32 min Core Measure Documentation - Palliative Care Palliative Care/ Comfort Measures: Not Applicable - Core Measures Any of the following diagnoses?: none Exam - Constitutional Vitals: Temp Pulse Resp BP Pulse Ox 98.7 F 64 15 128/89 97 12/21/18 12:44 12/21/18 12:44 12/21/18 12:44 12/21/18 12:44 12/21/18 12:44 General appearance: Present: no acute distress, well-nourished - EENT Eyes: Present: PERRL, EOM intact - Neck Neck: Present: supple, normal ROM - Respiratory Respiratory effort: normal Respiratory: bilateral: diminished, negative: rales, rhonchi, wheezing - Cardiovascular Rhythm: regular Heart Sounds: Present: S1 & S2 - Extremities Extremities: no ischemia, pulses intact - Abdominal General gastrointestinal: Present: soft, non-tender, non-distended, normal bowel sounds - Integumentary Integumentary: Present: clear, warm - Musculoskeletal Musculoskeletal: strength equal bilaterally, generalized weakness - Psychiatric Psychiatric: appropriate mood/affect, cooperative - Neurologic Neurologic: CNII-XII intact, moves all extremities Plan Activity: advance as tolerated Diet: regular, advance as tolerated Additional Instructions: advance to solid low fat diet at home in am. no lifting over 5 lbs x 2 wks. keep dressings dry x 5 days Follow up with: TYLER SANDOVAL DO [Staff Physician] - 3-5 Days AGNES LEROY MD [Staff Physician] - 7 Days KARMA CESAR MD [Staff Physician] - 3-5 Days RUSTAM JACKSON MD [Staff Physician] - 12/29/18 Forms: Accompanied Note Prescriptions: Sucralfate [Carafate] 1 gm PO Q6HR #30 tablet HYDROcodone/APAP 5-325 [Casey 5-325 mg TAB] 1 each PO TID PRN #15 tablet PRN Reason: Pain, Moderate (4-6) Pantoprazole [Protonix] 40 mg PO QDAY #30 tablet buPROPion [Wellbutrin] 75 mg PO QDAY #30 tablet Ondansetron [Zofran Odt] 4 mg PO Q8HR #21 tab.rapdis Sertraline [Zoloft] 25 mg PO QDAY #30
== END 2018-12-21 17:35 | disposition home or self-care (01) ==
LOC: ED 04:15 → INTOOBSV 08:51 → 3A 08:51
PROVIDERS: ADMIT Internal Medicine; ATTEND Internal Medicine
DX: R10.31 Right lower quadrant pain (principal); D72.829 Elevated white blood cell count, unspecified; R11.2 Nausea with vomiting, unspecified; K21.9 Gastro-esophageal reflux disease without esophagitis; F43.10 Post-traumatic stress disorder, unspecified
CPT/HCPCS: 36415; 47562; 74177; 76705; 78227; 80048; 80053; 82150; 85007; 85025; 85610; 85730; 88304; 96361; 96365; 96375; 96376; 99284; A9537; C9113; G0378; J1100; J1170; J1200; J1956; J2250; J2270; J2405; J2704; J2710; J2765; J2805; J3010; J7030; J7040; Q9967

== ENCOUNTER 2019-04-25 23:05 | Emergency (ER) | payer MEDICARE ==
[2019-04-25 23:54] LABS: Basophils # (Auto) 0.1 K/mm3 (0.0-0.1); Eosinophils # (Auto) 0.1 K/mm3 (0.0-0.4); Eosinophils % (Auto) 1.2 % (0.0-4.3); Hematocrit 40.2 % (35.5-45.6); Hemoglobin 13.7 gm/dl (11.8-15.2); Lymphocytes # (Auto) 1.8 K/mm3 (1.2-5.4); Lymphocytes % (Auto) 23.9 % (13.4-35.0); Mean Corpuscular HGB Conc 34 % (32-34); Mean Corpuscular Volume 81 fl (84-94); Monocytes # (Auto) 0.6 K/mm3 (0.0-0.8); Monocytes % (Auto) 7.4 % (0.0-7.3); Platelet Count 266 K/mm3 (140-440); Red Blood Count 4.95 M/mm3 (3.65-5.03); Red Cell Distribution Width 14.2 % (13.2-15.2)
--- NOTE | 2019-04-26 00:07 | XRay Report ---
CHEST 1 VIEW 04/25/2019 11:49 PM INDICATION / CLINICAL INFORMATION: Chest Pain. COMPARISON: None available. FINDINGS: SUPPORT DEVICES: None. HEART / MEDIASTINUM: No significant abnormality. LUNGS / PLEURA: No significant pulmonary or pleural abnormality. No pneumothorax. ADDITIONAL FINDINGS: No significant additional findings. IMPRESSION: 1. No acute abnormality of the chest. Signer Name: Burak King MD Signed: 04/26/2019 12:03 AM Workstation Name: [id number]
[2019-04-26 00:20] LABS: BUN/Creatinine Ratio 10; Blood Urea Nitrogen 9 mg/dL (9-20); Calcium 9.1 mg/dL (8.4-10.2); Hemolysis Index 7
[2019-04-26] MEDS ORDERED: SUCRALFATE 1 GM/10 ML ORAL LIQD PO ONE (01:11)
[2019-04-26] MEDS ORDERED: FAMOTIDINE 20 MG/2 ML INJ IV ONE (01:11)
[2019-04-26] MEDS ORDERED: SODIUM CHLORIDE 0.9% 1000 ML 1,000 ML IV ONE (01:11)
[2019-04-26] MEDS ORDERED: ONDANSETRON 4 MG/2 ML INJ IV ONE (01:14)
--- NOTE | 2019-04-26 01:16 | Emergency Department Report ---
ED General Adult HPI - General Chief complaint: Chest Pain Stated complaint: CHEST PAIN Time Seen by Provider: 04/26/19 00:44 Source: patient, RN notes reviewed, old records reviewed Mode of arrival: Ambulatory Limitations: No Limitations - History of Present Illness Initial comments: The patient is a 48-year-old gentleman. His past medical history has a history of EGD confirmed esophagitis, as per review of old medical records, had EGD in November 2018, with presumed esophagitis. He also has a history of alcohol use, GERD, cocaine use, and there have been concerns in the past raised about misuse of prescription drugs, and polysubstance use. He also has a history of cholecystectomy. He presents to the ER tonight with a complaint of diffuse abdominal pain, starting from the suprapubic region that moves up to his epigastric and subxiphoid region, this was preceded by nausea and vomiting, described as black. He denies bright red blood per rectum. He denies DVT and pulmonary embolism risk factors. He endorses that he has been compliant with medications that he was prescribed. As per review of old medical records, he has been advised to discontinue tobacco, alcohol, cocaine consumption, strongly advised to quit recreational drug use, no plan for endoscopy in December 2018, and is supposed to be taking Zofran, Protonix, Carafate. He endorses compliance with these medications. He denies headache, neck pain, diaphoresis, exertional shortness of breath, DVT and pulmonary embolism risk factors, there is no testicular pain, there are no urinary symptoms. -: Gradual, days(s) Location: chest, abdomen Radiation: other Severity scale (0 -10): 5 Quality: aching, constant Consistency: constant Improves with: rest Worsens with: movement - Related Data Home Medications Medication Instructions Recorded Confirmed Last Taken Propranolol [Inderal] 10 mg PO QDAY 12/17/18 12/17/18 Unknown buPROPion [Wellbutrin] 75 mg PO QDAY 12/17/18 12/17/18 Unknown Previous Rx's Medication Instructions Recorded Last Taken Type HYDROcodone/APAP 5-325 [Rosebud 1 each PO TID PRN #15 tablet 12/21/18 Unknown Rx 5-325 mg TAB] Sertraline [Zoloft] 25 mg PO QDAY #30 12/21/18 Unknown Rx buPROPion [Wellbutrin] 75 mg PO QDAY #30 tablet 12/21/18 Unknown Rx Ondansetron [Zofran ODT TAB] 4 mg PO Q8HR #21 tab.rapdis 04/26/19 Unknown Rx Pantoprazole [Protonix TAB] 40 mg PO QDAY #30 tablet 04/26/19 Unknown Rx Sucralfate [Carafate] 1 gm PO Q6HR #30 tablet 04/26/19 Unknown Rx Allergies Allergy/AdvReac Type Severity Reaction Status Date / Time aripiprazole [From Abilify] Allergy Unknown Verified 09/06/17 12:14 fluphenazine enanthate Allergy Unknown Verified 09/06/17 12:14 [From Prolixin] fluphenazine HCl Allergy Unknown Verified 09/06/17 12:14 [From Prolixin] haloperidol [From Haldol] Allergy Unknown Verified 09/06/17 12:14 haloperidol lactate Allergy Unknown Verified 09/06/17 12:14 [From Haldol] metoclopramide [From Reglan] Allergy Vomiting Verified 12/15/18 08:27 olanzapine [From Zyprexa] Allergy Unknown Verified 09/06/17 12:14 Penicillins Allergy Unknown Verified 09/06/17 12:14 ziprasidone HCl [From Geodon] Allergy Unknown Verified 09/06/17 12:14 ziprasidone mesylate Allergy Unknown Verified 09/06/17 12:14 [From Geodon] ED Review of Systems ROS: Stated complaint: CHEST PAIN Other details as noted in HPI Constitutional: denies: fever Eyes: denies: eye discharge ENT: denies: congestion Respiratory: denies: wheezing Cardiovascular: chest pain. denies: syncope Gastrointestinal: abdominal pain, nausea, vomiting, other. denies: melena, hematochezia Genitourinary: denies: dysuria, testicular pain Neurological: weakness Psychiatric: anxiety ED Past Medical Hx - Past Medical History Previous Medical History?: Yes Hx Hypertension: No Hx Congestive Heart Failure: No Hx Diabetes: No Hx GERD: Yes Hx Liver Disease: No Hx Renal Disease: No Hx Seizures: No Hx Psychiatric Treatment: Yes (PTSD (on disability for this),major depression, bipolar.) Hx Asthma: No Hx COPD: No Additional medical history: pleurisy - Surgical History Past Surgical History?: Yes Additional Surgical History: groin sx ? - Social History Smoking Status: Former Smoker Substance Use Type: Alcohol, Cocaine, Marijuana - Medications Home Medications: Home Medications Medication Instructions Recorded Confirmed Last Taken Type Propranolol [Inderal] 10 mg PO QDAY 12/17/18 12/17/18 Unknown History buPROPion [Wellbutrin] 75 mg PO QDAY 12/17/18 12/17/18 Unknown History HYDROcodone/APAP 5-325 [Rosebud 1 each PO TID PRN #15 tablet 12/21/18 Unknown Rx 5-325 mg TAB] Sertraline [Zoloft] 25 mg PO QDAY #30 12/21/18 Unknown Rx buPROPion [Wellbutrin] 75 mg PO QDAY #30 tablet 12/21/18 Unknown Rx Ondansetron [Zofran ODT TAB] 4 mg PO Q8HR #21 tab.rapdis 04/26/19 Unknown Rx Pantoprazole [Protonix TAB] 40 mg PO QDAY #30 tablet 04/26/19 Unknown Rx Sucralfate [Carafate] 1 gm PO Q6HR #30 tablet 04/26/19 Unknown Rx ED Physical Exam - General General appearance: alert, anxious, in distress - Head Head exam: Present: atraumatic, normocephalic - Eye Eye exam: Present: normal appearance, EOMI. Absent: nystagmus - ENT ENT exam: Present: normal exam, normal orophraynx, mucous membranes moist, normal external ear exam - Neck Neck exam: Present: normal inspection, full ROM. Absent: tenderness, meningismus - Respiratory Respiratory exam: Present: normal lung sounds bilaterally. Absent: respiratory distress - Cardiovascular Cardiovascular Exam: Present: regular rate, normal rhythm, normal heart sounds. Absent: bradycardia, tachycardia, irregular rhythm, systolic murmur, diastolic murmur, rubs, gallop - GI/Abdominal GI/Abdominal exam: Present: soft, tenderness, other (There is right upper quadrant tenderness. There is periumbilical tenderness.). Absent: distended, guarding, rebound, rigid, pulsatile mass - Rectal Rectal exam: Present: deferred - exam: Present: normal inspection, other (There is normal testicular lie. There is normal cremasteric reflex. There is no testicular tenderness. There is no testicular swelling). Absent: testicular tenderness External exam: Present: normal external exam, other (Chaperoned by nurse Samantha Arengton) - Extremities Exam Extremities exam: Present: normal inspection, full ROM, other (2+ pulses noted in the bilateral upper and lower extremities. There is no palpable cord. negative Homans sign. Muscular compartments are soft. The pelvis is stable.). Absent: calf tenderness - Back Exam Back exam: Present: normal inspection. Absent: tenderness, CVA tenderness (R), CVA tenderness (L), paraspinal tenderness, vertebral tenderness - Neurological Exam Neurological exam: Present: alert, normal gait, other (There is no facial droop. The tongue is midline. Extraocular movements are intact bilaterally. There is 5 out of 5 strength in bilateral upper and lower extremities. Sensation is intact to light touch bilateral upper and lower extremities. There is a normal gait.). Absent: motor sensory deficit - Psychiatric Psychiatric exam: Present: anxious - Skin Skin exam: Present: warm, dry, intact, normal color. Absent: rash ED Course Vital Signs 04/25/19 04/26/19 04/26/19 23:13 00:55 03:40 Temperature 97.8 F 98.4 F 98.2 F Pulse Rate 105 H 74 81 Respiratory 20 16 16 Rate Blood Pressure 117/89 Blood Pressure 143/74 117/81 [Right] O2 Sat by Pulse 96 99 100 Oximetry - Reevaluation(s) Reevaluation #1: 04/26/19 02:22 Differential diagnosis, including but not limited to: GERD, gastritis, esophagitis, hiatal hernia, cyclic vomiting syndrome, narcotic bowel syndrome, constipation, obstipation, obstruction, pancreatitis, pneumonia, costochondritis , acute coronary syndrome, narcotic dependence Assessment and plan: 48-year-old gentleman with recurrent complaint of nausea vomiting, endorsing that it hurts to swallow, able to tolerate liquid feeds, reporting black emesis which I have not personally witnessed while here in the emergency room, with no DVT or pulmonary embolism risk factors, low risk by Wells criteria, troponin negative x1 in the context of 5 days of symptoms, EKG unchanged x2, low risk for major adverse cardiac event as per heart score, has prior documentation of narcotic seeking tendencies, and misuse of narcotic substances. The patient is afebrile with reassuring vital signs. We will treat with nonnarcotic pain medication. Repeat laboratory studies, troponin ordered, CT scan abdomen pelvis ordered. This appears to be consistent with prior exacerbations of the patient's esophagitis. He is clinically sober at this time. Patient is advised that if no emergent condition is identified on objective imaging, he will be counseled to follow-up with outpatient gastroenterology for further management. Reevaluation #2: 04/26/19 03:57 Reassessed multiple times. No active vomiting. Transaminitis appears to be chronic. Vital signs are unremarkable. CT scan negative for acute objective pathology. Patient will be discharged with his previously prescribed outpatient medications, excluding narcotics, he will need to follow-up with outpatient gastroenterology for his acute on chronic abdominal pain. ED Medical Decision Making - Lab Data Result diagrams: 04/25/19 23:27 04/25/19 23:27 Vital Signs 04/25/19 04/26/19 23:13 00:55 Temperature 97.8 F 98.4 F Pulse Rate 105 H 74 Respiratory 20 16 Rate Blood Pressure 117/89 Blood Pressure 143/74 [Right] O2 Sat by Pulse 96 99 Oximetry Lab Results 04/25/19 04/25/19 Range/Units 23:27 23:27 WBC 7.5 (4.5-11.0) K/mm3 RBC 4.95 (3.65-5.03) M/mm3 Hgb 13.7 (11.8-15.2) gm/dl Hct 40.2 (35.5-45.6) % MCV 81 L (84-94) fl MCH 28 (28-32) pg MCHC 34 (32-34) % RDW 14.2 (13.2-15.2) % Plt Count 266 (140-440) K/mm3 Lymph % (Auto) 23.9 (13.4-35.0) % Long % (Auto) 7.4 H (0.0-7.3) % Eos % (Auto) 1.2 (0.0-4.3) % Baso % (Auto) 1.0 (0.0-1.8) % Lymph # 1.8 (1.2-5.4) K/mm3 Long # 0.6 (0.0-0.8) K/mm3 Eos # 0.1 (0.0-0.4) K/mm3 Baso # 0.1 (0.0-0.1) K/mm3 Seg Neutrophils % 66.5 (40.0-70.0) % Seg Neutrophils # 5.0 (1.8-7.7) K/mm3 Sodium 144 (137-145) mmol/L Potassium 4.6 (3.6-5.0) mmol/L Chloride 101.2 (98-107) mmol/L Carbon Dioxide 27 (22-30) mmol/L Anion Gap 20 mmol/L BUN 9 (9-20) mg/dL Creatinine 0.9 (0.8-1.5) mg/dL Estimated GFR > 60 ml/min BUN/Creatinine Ratio 10 % Glucose 104 H (75-100) mg/dL Calcium 9.1 (8.4-10.2) mg/dL Troponin T < 0.010 (0.00-0.029) ng/mL - EKG Data 04/26/19 02:25 EKG #1 is unchanged from prior EKG. Sinus rhythm, 98 bpm, normal axis, QTC 457 ms, left ventricular hypertrophy, motion artifact, atrial enlargement. Not a STEMI. EKG #2 unchanged from prior. Both EKGs appear to be unchanged from prior EKG from 09/07/2017, with the exception of a more positively deflected QRS complex in V4 and EKG #1, EKG #2 QRS in V4 appears to be more isoelectric. - Radiology Data Radiology results: report reviewed, image reviewed Print Report Referring Physician: GM CRAIN Patient Name: PA MUÑIZ Date of : 1970 Sex: Male Report Date: 2019-04-26 Report Status: Finalized Findings [address] [address] XRay Report Signed Patient: PA MUÑIZ MR#: [id number] : 1970 Acct:[id number] Age/Sex: 48 / M ADM Date: 04/25/19 Loc: ED Attending Dr: Ordering Physician: GM CRAIN MD Date of Service: 04/25/19 Procedure(s): XR chest 1V ap Accession Number(s): [id number] cc: ED MD BREANN Fluoro Time In Minutes: CHEST 1 VIEW 04/25/2019 11:49 PM INDICATION / CLINICAL INFORMATION: Chest Pain. COMPARISON: None available. FINDINGS: SUPPORT DEVICES: None. HEART / MEDIASTINUM: No significant abnormality. LUNGS / PLEURA: No significant pulmonary or pleural abnormality. No pneumothorax. ADDITIONAL FINDINGS: No significant additional findings. IMPRESSION: 1. No acute abnormality of the chest. Signer Name: Burak King MD Signed: 04/26/2019 12:03 AM Workstation Name: [id number] Transcribed By: [place] Dictated By: Burak King MD Electronically Authenticated By: Burak King MD Signed Date/Time: 04/26/19 0003 Print Report Referring Physician: RICARDO PRITCHARD Patient Name: PA MUÑIZ Date of : 1970 Sex: Male Report Date: 2019-04-26 Report Status: Finalized Findings [facility] [address] [place] [address] Cat Scan Report Signed Patient: PA MUÑIZ MR#: [id number] : 1970 Acct:[id number] Age/Sex: 48 / M ADM Date: 04/25/19 Loc: ED A ttending Dr: Ordering Physician: RICARDO PRITCHARD MD Date of Service: 04/26/19 Procedure(s): CT abdomen pelvis w con Accession Number(s): [id number] cc: RICARDO PRITCHARD MD CT ABDOMEN AND PELVIS WITH CONTRAST INDICATION: Mid abdominal pain with nausea and vomiting. COMPARISON: CT abdomen and pelvis with contrast from 12/15/2018. TECHNIQUE: Axial, coronal and sagittal CT imaging of the abdomen and pelvis was performed after injection of 100 cc Omnipaque [address] scans at this location are performed using CT dose reduction for ALARA by means of automated exposure control. FINDINGS: LOWER CHEST: No significant abnormality. LIVER: Generalized steatosis is noted with a subcentimeter cyst located inferiorly along the right hepatic lobe. No additional significant abnormality. BILIARY: Prior cholecystectomy. No biliary ductal dilatation. PANCREAS: No significant abnormality. SPLEEN: No significant abnormality. ADRENALS: No significant abnormality. KIDNEYS AND URETERS: A nonobstructive 2 mm stone is seen along the right lower renal pole. No additional significant abnormality. GI TRACT: No significant abnormality of the stomach or small bowel. There is sigmoid diverticulosis without evidence of diverticulitis. The colon and appendix are otherwise unremarkable. PERITONEUM: No free fluid. No free air. No fluid collection. LYMPH NODES: No significant adenopathy. VASCULATURE: No significant abnormality. URINARY BLADDER: No significant abnormality. REPRODUCTIVE ORGANS: No significant abnormality. ADDITIONAL FINDINGS: None. SKELETAL SYSTEM: No significant abnormality. IMPRESSION: 1. No acute abnormality of the abdomen or pelvis. 2. Additional findings as above. Signer Name: Burak King MD Signed: 04/26/2019 3:49 AM Workstation Name: [id number] Transcribed By: MN Dictated By: Burak King MD Electronically Authenticated By: Burak King MD Signed Date/Time: 04/26/19348 DD/ 4 TD/TT: Critical care attestation.: If time is entered above; I have spent that time in minutes in the direct care of this critically ill patient, excluding procedure time. ED Disposition Clinical Impression: History of esophagitis Abdominal pain Qualifiers: Abdominal location: generalized Qualified Code(s): R10.84 - Generalized abdominal pain Disposition: TO HOME OR SELFCARE Is pt being admited?: No Does the pt Need Aspirin: No Condition: Stable Additional Instructions: Avoid consumption of Motrin, ibuprofen, Naprosyn, Aleve, alcohol. Avoid consumption of cocaine, and heavy and or spicy foods. Recommend that patient follow-up with his primary care doctor or gastro enterologist within the next 7 to 10 days. Advance diet as tolerated, stop with bread, rice, apples, toast. Patient likely having exacerbation of chronic esophagitis/esophageal irritation, this typically takes weeks, months or even years to improve. Please return to the emergency room right away with new, worsened or different symptoms, or symptoms not present on the initial emergency room evaluation. 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 Referrals: DAREK VERNON MD [Staff Physician] - 7-10 days ELIOT KENT MD [Staff Physician] - 7-10 days [facility] [Provider Group] - 3-5 Days
[2019-04-26] MEDS ORDERED: DICYCLOMINE 20 MG/2 ML INJ IM ONE (02:25)
[2019-04-26 03:09] LABS: Alanine Aminotransferase 64 units/L (7-56); Albumin 4.2 g/dL (3.9-5); Bilirubin,Direct < 0.2 mg/dL (0-0.2)
[2019-04-26 03:41] VITALS: BP 117/81
--- NOTE | 2019-04-26 03:53 | Cat Scan Report ---
CT ABDOMEN AND PELVIS WITH CONTRAST INDICATION: Mid abdominal pain with nausea and vomiting. COMPARISON: CT abdomen and pelvis with contrast from 12/15/2018. TECHNIQUE: Axial, coronal and sagittal CT imaging of the abdomen and pelvis was performed after inje ction of 100 cc Omnipaque [address] scans at this location are performed using CT dose red uction for ALARA by means of automated exposure control. FINDINGS: LOWER CHEST: No significant abnormality. LIVER: Generalized steatosis is noted with a subcentimeter cyst located inferiorly along the right he patic lobe. No additional significant abnormality. BILIARY: Prior cholecystectomy. No biliary ductal dilatation. PANCREAS: No significant abnormality. SPLEEN: No significant abnormality. ADRENALS: No significant abnormality. KIDNEYS AND URETERS: A nonobstructive 2 mm stone is seen along the right lower renal pole. No additio nal significant abnormality. GI TRACT: No significant abnormality of the stomach or small bowel. There is sigmoid diverticulosis w ithout evidence of diverticulitis. The colon and appendix are otherwise unremarkable. PERITONEUM: No free fluid. No free air. No fluid collection. LYMPH NODES: No significant adenopathy. VASCULATURE: No significant abnormality. URINARY BLADDER: No significant abnormality. REPRODUCTIVE ORGANS: No significant abnormality. ADDITIONAL FINDINGS: None. SKELETAL SYSTEM: No significant abnormality. IMPRESSION: 1. No acute abnormality of the abdomen or pelvis. 2. Additional findings as above. Signer Name: Burak King MD Signed: 04/26/2019 3:49 AM Workstation Name: [id number]
== END 2019-04-26 04:11 | disposition home or self-care (01) ==
LOC: ED 23:05
DX: R10.84 Generalized abdominal pain (principal); K20.8 Other esophagitis; K21.9 Gastro-esophageal reflux disease without esophagitis; F43.10 Post-traumatic stress disorder, unspecified; F12.10 Cannabis abuse, uncomplicated; F14.10 Cocaine abuse, uncomplicated; Z87.891 Personal history of nicotine dependence; Z79.899 Other long term (current) drug therapy; Z88.1 Allergy status to other antibiotic agents; Z88.6 Allergy status to analgesic agent
CPT/HCPCS: 36415; 71045; 74177; 80048; 80076; 83690; 84484; 85025; 93005; 93010; 96361; 96372; 96374; 96375; 99285; J0500; J2405; J7030; Q9967

== ENCOUNTER 2019-04-27 23:08 | Emergency (ER) | payer MEDICARE ==
--- NOTE | 2019-04-27 23:41 | Emergency Department Report ---
ED Seizure HPI - General Chief Complaint: Seizure Stated Complaint: SEIZURES Time Seen by Provider: 04/27/19 23:27 Source: EMS Mode of arrival: Wheelchair Limitations: No Limitations - History of Present Illness Initial Comments: Patient is a 48-year-old male that presents emergency room with seizure-like activity and shaking. Patient states he had 5 shaking episodes today. Patient is currently at [facility] as an inpatient. Patient has a sitter with him patient states that he hit his head during 1 of his shaking episodes. Patient states he feels like they are seizures. Patient states when he has a seizure he does not have post seizure confusion or loss of consciousness. Patient states that his whole body is shaking. Patient states he was in the bathroom today and began shaking and hit his head on the sink. MD Complaint: possible seizure, shaking -: Sudden Witnessed:: No Trauma: Yes Seizure History: none Place: other Possible Precipitating Event: medication Associated Symptoms: denies other symptoms. denies: chest pain, confusion, cough, diaphoresis, fever/chills, loss of appetite, malaise, rash, shortness of breath, syncope, weakness, tongue injury, shoulder dislocation Treatments Prior to Arrival: none - Related Data Home Medications Medication Instructions Recorded Confirmed Last Taken buPROPion [Wellbutrin] 75 mg PO QDAY 12/17/18 12/17/18 Unknown propranoloL [Inderal] 10 mg PO QDAY 12/17/18 12/17/18 Unknown Previous Rx's Medication Instructions Recorded Last Taken Type HYDROcodone/APAP 5-325 [[place] 1 each PO TID PRN #15 tablet 12/21/18 Unknown Rx 5-325 mg TAB] Sertraline [Zoloft] 25 mg PO QDAY #30 12/21/18 Unknown Rx buPROPion [Wellbutrin] 75 mg PO QDAY #30 tablet 12/21/18 Unknown Rx Ondansetron [Zofran ODT TAB] 4 mg PO Q8HR #21 tab.rapdis 04/26/19 Unknown Rx Pantoprazole [Protonix TAB] 40 mg PO QDAY #30 tablet 04/26/19 Unknown Rx Sucralfate [Carafate] 1 gm PO Q6HR #30 tablet 04/26/19 Unknown Rx Allergies Allergy/AdvReac Type Severity Reaction Status Date / Time aripiprazole [From Abilify] Allergy Unknown Verified 09/06/17 12:14 fluphenazine enanthate Allergy Unknown Verified 09/06/17 12:14 [From Prolixin] fluphenazine HCl Allergy Unknown Verified 09/06/17 12:14 [From Prolixin] haloperidol [From Haldol] Allergy Unknown Verified 09/06/17 12:14 haloperidol lactate Allergy Unknown Verified 09/06/17 12:14 [From Haldol] metoclopramide [From Reglan] Allergy Vomiting Verified 12/15/18 08:27 olanzapine [From Zyprexa] Allergy Unknown Verified 09/06/17 12:14 Penicillins Allergy Unknown Verified 09/06/17 12:14 ziprasidone HCl [From Geodon] Allergy Unknown Verified 09/06/17 12:14 ziprasidone mesylate Allergy Unknown Verified 09/06/17 12:14 [From Geodon] ED Review of Systems ROS: Stated complaint: SEIZURES Other details as noted in HPI Constitutional: denies: chills, fever Eyes: denies: eye pain, eye discharge, vision change ENT: denies: ear pain, throat pain Respiratory: denies: cough, shortness of breath, wheezing Cardiovascular: denies: chest pain, palpitations Endocrine: no symptoms reported Gastrointestinal: denies: abdominal pain, nausea, diarrhea Genitourinary: denies: urgency, dysuria Musculoskeletal: denies: back pain, joint swelling, arthralgia Skin: denies: rash, lesions Neurological: denies: headache, weakness, paresthesias Psychiatric: denies: anxiety, depression Hematological/Lymphatic: denies: easy bleeding, easy bruising ED Past Medical Hx - Past Medical History Previous Medical History?: Yes Hx Hypertension: No Hx Congestive Heart Failure: No Hx Diabetes: No Hx GERD: Yes Hx Liver Disease: No Hx Renal Disease: No Hx Seizures: Yes Hx Psychiatric Treatment: Yes (PTSD (on disability for this),major depression, bipolar.) Hx Asthma: No Hx COPD: No Additional medical history: pleurisy - Surgical History Past Surgical History?: Yes Additional Surgical History: groin sx ?, gallbladder removed - Family History Family history: no significant - Social History Smoking Status: Current Every Day Smoker Substance Use Type: Alcohol, Cocaine - Medications Home Medications: Home Medications Medication Instructions Recorded Confirmed Last Taken Type buPROPion [Wellbutrin] 75 mg PO QDAY 12/17/18 12/17/18 Unknown History propranoloL [Inderal] 10 mg PO QDAY 12/17/18 12/17/18 Unknown History HYDROcodone/APAP 5-325 [[place] 1 each PO TID PRN #15 tablet 12/21/18 Unknown Rx 5-325 mg TAB] Sertraline [Zoloft] 25 mg PO QDAY #30 12/21/18 Unknown Rx buPROPion [Wellbutrin] 75 mg PO QDAY #30 tablet 12/21/18 Unknown Rx Ondansetron [Zofran ODT TAB] 4 mg PO Q8HR #21 tab.rapdis 04/26/19 Unknown Rx Pantoprazole [Protonix TAB] 40 mg PO QDAY #30 tablet 04/26/19 Unknown Rx Sucralfate [Carafate] 1 gm PO Q6HR #30 tablet 04/26/19 Unknown Rx ED Physical Exam - General Limitations: No Limitations General appearance: alert, in no apparent distress - Head Head exam: Present: atraumatic, normocephalic - Eye Eye exam: Present: normal appearance, PERRL Pupils: Present: normal accommodation - ENT ENT exam: Present: mucous membranes moist - Neck Neck exam: Present: normal inspection - Respiratory Respiratory exam: Present: normal lung sounds bilaterally. Absent: respiratory distress - Cardiovascular Cardiovascular Exam: Present: regular rate, normal rhythm. Absent: systolic murmur, diastolic murmur, rubs, gallop - GI/Abdominal GI/Abdominal exam: Present: soft, normal bowel sounds - Rectal Rectal exam: Present: deferred - Extremities Exam Extremities exam: Present: normal inspection - Back Exam Back exam: Present: normal inspection - Neurological Exam Neurological exam: Present: alert, oriented X3 - Psychiatric Psychiatric exam: Present: normal affect, normal mood - Skin Skin exam: Present: warm, dry, intact, normal color. Absent: rash ED Course Vital Signs 04/27/19 04/27/19 04/27/19 23:19 23:27 23:30 Temperature 98.2 F Pulse Rate 75 65 Respiratory 12 12 24 Rate Blood Pressure 120/76 129/88 Blood Pressure 120/76 [Left] O2 Sat by Pulse 99 99 98 Oximetry 04/28/19 04/28/19 00:00 01:01 Temperature Pulse Rate 73 75 Respiratory 20 16 Rate Blood Pressure 120/76 Blood Pressure 98/71 [Left] O2 Sat by Pulse 96 96 Oximetry - Reevaluation(s) Reevaluation #1: Initial evaluation done. On initial contact, patient noted to be shaking and talking. Patient states he is having a seizure now. 04/27/19 23:27 Reevaluation #2: Nurses unable to obtain peripheral IV. A left EJ was placed. See procedure note. 04/28/19 00:09 Reevaluation #3: Patient has not had any shaking or seizure-like activity. I discussed all results and clinical findings with patient. I discussed plan of care with patient. Patient agrees with plan of care. Patient is stable for discharge. Patient will be discharged home. Patient given discharge instructions. Patient voiced understanding of discharge instructions. 04/28/19 01:10 ED Medical Decision Making - Lab Data Result diagrams: 04/27/19 23:55 04/27/19 23:55 - EKG Data -: EKG Interpreted by Me EKG shows normal: sinus rhythm, axis, intervals, QRS complexes, ST-T waves Rate: normal - Radiology Data Radiology results: report reviewed, image reviewed CT HEAD WITHOUT CONTRAST INDICATION: Seizure TECHNIQUE: Axial slices were obtained through the head. Coronal and sagittal reformatted images were obtained. COMPARISON: None available. FINDINGS: There is no intracranial hemorrhage or extra-axial fluid collection. Ventricles, basilar cisterns, and sulci appear within normal limits for age. There is no mass lesion or midline shift. No acute territorial infarct is identified. Bone windows demonstrate no acute osseous abnormality. Paranasal sinuses and mastoid air cells appear clear. TECHNIQUE: All CT scans at this facility use dose modulation, iterative reconstruction, automated exposure control, weight based dosing, when appropriate, to reduce radiation dose to as low as reasonably achievable. IMPRESSION: 1. No acute intracranial abnormality. - Medical Decision Making Patient is a 48-year-old male that presents emergency room for seizure-like activity and shaking. Patient had a witnessed shaking activity for which she called a seizure in the ER. Patient's shaking and seizure-like activity and does not appear to be epileptic or seizure at all since the patient was able to communicate and did not have any post seizure confusion. Patient is currently at a psychiatric facility for suicidal ideations and bipolar. Patient is stable for discharge. Patient be discharged back to complete his therapy at the psych facility. Patient's labs unremarkable. Patient's EKG shows no acute findings. Patient's head CT is negative. - Differential Diagnosis Pseudoseizure, seizure-like activity, shaking, medication reaction. Critical care attestation.: If time is entered above; I have spent that time in minutes in the direct care of this critically ill patient, excluding procedure time. ED Disposition Clinical Impression: Seizure-like activity, Psychosomatic seizure, Cocaine abuse Disposition: [id number] PSY HOSP/PSY UNIT Is pt being admited?: No Does the pt Need Aspirin: No Condition: Stable Instructions: Non-epileptic Seizures (ED) Additional Instructions: Patient to follow-up with primary care in 2 to 3 days. Patient to be discharged from the ER and return to his psychiatric facility continue his therapy. Patient to return to ER if condition worsens, changes or new symptoms arise. Patient to increase water. Patient to rest. Patient to continue previous medications. Referrals: PRIMARY CARE, [Primary Care Provider] - 2-3 Days Time of Disposition: 01:13
[2019-04-28 00:28] LABS: Basophils # (Auto) 0.1 K/mm3 (0.0-0.1); Basophils % (Auto) 0.9 % (0.0-1.8); Eosinophils # (Auto) 0.4 K/mm3 (0.0-0.4); Eosinophils % (Auto) 5.2 % (0.0-4.3); Hematocrit 39.2 % (35.5-45.6); Hemoglobin 13.3 gm/dl (11.8-15.2); Lymphocytes # (Auto) 1.9 K/mm3 (1.2-5.4); Lymphocytes % (Auto) 25.3 % (13.4-35.0); Mean Corpuscular HGB Conc 34 % (32-34); Mean Corpuscular Volume 83 fl (84-94); Monocytes # (Auto) 0.6 K/mm3 (0.0-0.8); Monocytes % (Auto) 8.1 % (0.0-7.3); Platelet Count 260 K/mm3 (140-440); Red Blood Count 4.75 M/mm3 (3.65-5.03); Red Cell Distribution Width 14.3 % (13.2-15.2)
--- NOTE | 2019-04-28 00:50 | Cat Scan Report ---
CT HEAD WITHOUT CONTRAST INDICATION: Seizure TECHNIQUE: Axial slices were obtained through the head. Coronal and sagittal reformatted images were obtained. COMPARISON: None available. FINDINGS: There is no intracranial hemorrhage or extra-axial fluid collection. Ventricles, basilar cisterns, an d sulci appear within normal limits for age. There is no mass lesion or midline shift. No acute arnoldo torial infarct is identified. Bone windows demonstrate no acute osseous abnormality. Paranasal sinuses and mastoid air cells appear clear. TECHNIQUE: All CT scans at this facility use dose modulation, iterative reconstruction, automated ex posure control, weight based dosing, when appropriate, to reduce radiation dose to as low as reasonab ly achievable. IMPRESSION: 1. No acute intracranial abnormality. Signer Name: Raf Rockwell MD Signed: 04/28/2019 12:46 AM Workstation Name: [id number]
[2019-04-28 00:53] LABS: Alanine Aminotransferase 36 units/L (7-56); Albumin 3.5 g/dL (3.9-5); BUN/Creatinine Ratio 15; Blood Urea Nitrogen 12 mg/dL (9-20); Calcium 8.6 mg/dL (8.4-10.2); Hemolysis Index 3
[2019-04-28 01:02] VITALS: BP 98/71
[2019-04-28 01:34] LABS: Bilirubin,Urine NEG (Negative); Blood,Urine NEG (Negative); Color,Urine Yellow (Yellow); Hyaline Casts,Urine 1 /LPF; Mucus,Urine FEW /HPF; Protein,Urine <15 mg/dL mg/dL (Negative); Urobilinogen,Urine < 2.0 mg/dL (<2.0)
[2019-04-28 01:42] LABS: Amphetamine Screen,Urine PRESUMPTIVE NEGATIVE; Cannabinoid Screen,Urine PRESUMPTIVE NEGATIVE; Methadone Screen,Urine PRESUMPTIVE NEGATIVE; Opiate Screen,Urine PRESUMPTIVE NEGATIVE
[2019-04-28 01:50] LABS: Benzodiazepines Screen,Urine PRESUMPTIVE POSITIVE; Cocaine Screen,Urine PRESUMPTIVE POSITIVE
== END 2019-04-28 02:40 ==
LOC: ED 23:08
DX: G40.909 Epilepsy, unspecified, not intractable, without status epilepticus (principal); F14.10 Cocaine abuse, uncomplicated; K21.9 Gastro-esophageal reflux disease without esophagitis; F43.10 Post-traumatic stress disorder, unspecified; F17.200 Nicotine dependence, unspecified, uncomplicated; Z98.890 Other specified postprocedural states; Z79.899 Other long term (current) drug therapy; Z88.8 Allergy status to other drugs, medicaments and biological substances
CPT/HCPCS: 36415; 70450; 80053; 80307; 80320; 81001; 85025; 93005; 93010; G0480

== ENCOUNTER 2020-03-09 23:55 | Inpatient (IN) | payer MEDICARE ==
[2020-03-10] MEDS ORDERED: SODIUM CHLORIDE 0.9% 1000 ML 1,000 ML IV ONE (05:04)
[2020-03-10] MEDS ORDERED: levETIRAcetam 1000 MG/NS 0.75% 1,000 MG/100 ML BAG IV ONE (05:04)
--- NOTE | 2020-03-10 05:06 | Emergency Department Report ---
Chief Complaint: Seizure Stated Complaint: SEIZURE - HPI History of Present Illness: This is a 49-year-old male who presents to the emergency department with complaint of a seizure this evening, witnessed by family. Patient says that he does not have any seizure history but since February 12 he has had 6 different seizure-like events. This is the first time that he has come to the emergency department to be seen for this seizure-like activity. He complains of a right- sided headache, right shoulder pain, right thumb pain. He denies any other past medical history. - Exam Vital Signs: Vital Signs 03/10/20 00:19 Temperature 97.8 F Pulse Rate 81 Respiratory 16 Rate Blood Pressure 138/93 [Left] O2 Sat by Pulse 99 Oximetry MSE screening note: Focused history and physical exam performed. Due to findings the following was ordered: I have ordered a CT scan of the head without contrast, EKG, labs. The patient will be given IV fluid resuscitation and a loading dose of Keppra. ED Disposition for MSE Condition: Stable Referrals: PRIMARY CARE, [Primary Care Provider] - 3-5 Days
[2020-03-10 06:23] LABS: Basophils # (Auto) 0.1 K/mm3 (0.0-0.1); Basophils % (Auto) 1.2 % (0.0-1.8); Eosinophils # (Auto) 0.2 K/mm3 (0.0-0.4); Eosinophils % (Auto) 3.6 % (0.0-4.3); Hematocrit 39.9 % (35.5-45.6); Hemoglobin 13.9 gm/dl (11.8-15.2); Lymphocytes # (Auto) 1.9 K/mm3 (1.2-5.4); Lymphocytes % (Auto) 31.4 % (13.4-35.0); Mean Corpuscular HGB Conc 35 % (32-34); Mean Corpuscular Volume 83 fl (84-94); Monocytes # (Auto) 0.7 K/mm3 (0.0-0.8); Monocytes % (Auto) 11.8 % (0.0-7.3); Platelet Count 199 K/mm3 (140-440); Red Blood Count 4.84 M/mm3 (3.65-5.03); Red Cell Distribution Width 15.4 % (13.2-15.2)
[2020-03-10 06:40] LABS: Alanine Aminotransferase 19 units/L (7-56); Albumin 4.2 g/dL (3.9-5); BUN/Creatinine Ratio 14; Blood Urea Nitrogen 11 mg/dL (9-20); Calcium 8.9 mg/dL (8.4-10.2); Hemolysis Index 4
[2020-03-10] MEDS ORDERED: ACETAMINOPHEN 325 MG TAB PO ONE (06:54)
[2020-03-10 06:55] LABS: Amphetamine Screen,Urine PRESUMPTIVE NEGATIVE; Benzodiazepines Screen,Urine PRESUMPTIVE NEGATIVE; Cannabinoid Screen,Urine PRESUMPTIVE NEGATIVE; Cocaine Screen,Urine PRESUMPTIVE POSITIVE; Methadone Screen,Urine PRESUMPTIVE NEGATIVE; Opiate Screen,Urine PRESUMPTIVE NEGATIVE
--- NOTE | 2020-03-10 06:56 | Emergency Department Report ---
ED Seizure HPI - General Chief Complaint: Seizure Stated Complaint: SEIZURE Source: patient Mode of arrival: Ambulatory Limitations: No Limitations - History of Present Illness Initial Comments: Patient is a 49-year-old male with past medical history of previous cardiac dysrhythmia who presents to the emergency department with complaint of seizure episodes. Patient states that he has had approximately 3 episodes of seizures in the past 3 to 4 weeks. Patient states that he has never had a seizure before but did note approximately 10 years ago he was placed on propanolol and another medication after he had multiple episodes of passing out while playing basketball. He states that there was talk of a pacemaker the patient was then removed from propanolol after taking it for approximately 9 or 10 years. He states that he has felt well for the past few days but denies having any fevers chills or coughing. He denies having headache. He states that his seizures were witnessed by a family member. He states he does feel confused after these episodes. He denies taking any prescribed medications at this time. He states he had one beer on . He also notes that he has used cocaine once in the past month. MD Complaint: seizure - Related Data Home Medications Medication Instructions Recorded Confirmed Last Taken buPROPion [Wellbutrin] 75 mg PO QDAY 12/17/18 12/17/18 Unknown propranoloL [Inderal] 10 mg PO QDAY 12/17/18 12/17/18 Unknown Previous Rx's Medication Instructions Recorded Last Taken Type HYDROcodone/APAP 5-325 [[place] 1 each PO TID PRN #15 tablet 12/21/18 Unknown Rx 5-325 mg TAB] Sertraline [Zoloft] 25 mg PO QDAY #30 12/21/18 Unknown Rx buPROPion [Wellbutrin] 75 mg PO QDAY #30 tablet 12/21/18 Unknown Rx Ondansetron [Zofran ODT TAB] 4 mg PO Q8HR #21 tab.rapdis 04/26/19 Unknown Rx Pantoprazole [Protonix TAB] 40 mg PO QDAY #30 tablet 04/26/19 Unknown Rx Sucralfate [Carafate] 1 gm PO Q6HR #30 tablet 04/26/19 Unknown Rx Allergies Allergy/AdvReac Type Severity Reaction Status Date / Time aripiprazole [From Abilify] Allergy Unknown Verified 09/06/17 12:14 fluphenazine enanthate Allergy Unknown Verified 09/06/17 12:14 [From Prolixin] fluphenazine HCl Allergy Unknown Verified 09/06/17 12:14 [From Prolixin] haloperidol [From Haldol] Allergy Unknown Verified 09/06/17 12:14 haloperidol lactate Allergy Unknown Verified 09/06/17 12:14 [From Haldol] metoclopramide [From Reglan] Allergy Vomiting Verified 12/15/18 08:27 olanzapine [From Zyprexa] Allergy Unknown Verified 09/06/17 12:14 Penicillins Allergy Unknown Verified 09/06/17 12:14 ziprasidone HCl [From Geodon] Allergy Unknown Verified 09/06/17 12:14 ziprasidone mesylate Allergy Unknown Verified 09/06/17 12:14 [From Geodon] ED Review of Systems ROS: Stated complaint: SEIZURE Other details as noted in HPI Constitutional: malaise, weakness. denies: chills, fever ENT: denies: dental pain Respiratory: denies: cough, shortness of breath Cardiovascular: denies: chest pain Endocrine: no symptoms reported Gastrointestinal: denies: abdominal pain, nausea, vomiting Genitourinary: denies: urgency, dysuria Musculoskeletal: as per HPI Skin: denies: rash Neurological: as per HPI, other Psychiatric: denies: anxiety, depression Hematological/Lymphatic: denies: easy bleeding, easy bruising ED Past Medical Hx - Past Medical History Hx Hypertension: No Hx Congestive Heart Failure: No Hx Diabetes: No Hx GERD: Yes Hx Liver Disease: No Hx Renal Disease: No Hx Seizures: Yes Hx Psychiatric Treatment: Yes (PTSD (on disability for this),major depression, bipolar.) Hx Asthma: No Hx COPD: No Additional medical history: pleurisy - Surgical History Additional Surgical History: groin sx ?, gallbladder removed - Social History Smoking Status: Current Every Day Smoker Substance Use Type: Alcohol, Cocaine - Medications Home Medications: Home Medications Medication Instructions Recorded Confirmed Last Taken Type buPROPion [Wellbutrin] 75 mg PO QDAY 12/17/18 12/17/18 Unknown History propranoloL [Inderal] 10 mg PO QDAY 12/17/18 12/17/18 Unknown History HYDROcodone/APAP 5-325 [[place] 1 each PO TID PRN #15 tablet 12/21/18 Unknown Rx 5-325 mg TAB] Sertraline [Zoloft] 25 mg PO QDAY #30 12/21/18 Unknown Rx buPROPion [Wellbutrin] 75 mg PO QDAY #30 tablet 12/21/18 Unknown Rx Ondansetron [Zofran ODT TAB] 4 mg PO Q8HR #21 tab.rapdis 04/26/19 Unknown Rx Pantoprazole [Protonix TAB] 40 mg PO QDAY #30 tablet 04/26/19 Unknown Rx Sucralfate [Carafate] 1 gm PO Q6HR #30 tablet 04/26/19 Unknown Rx ED Physical Exam - General Limitations: No Limitations General appearance: alert, in no apparent distress - Head Head exam: Present: atraumatic, normal inspection - Eye Eye exam: Present: normal appearance Pupils: Present: normal accommodation - ENT ENT exam: Present: normal exam - Neck Neck exam: Present: normal inspection - Respiratory Respiratory exam: Present: normal lung sounds bilaterally - Cardiovascular Cardiovascular Exam: Present: regular rate, normal rhythm, normal heart sounds - GI/Abdominal GI/Abdominal exam: Present: soft. Absent: distended, tenderness - Rectal Rectal exam: Present: deferred - Extremities Exam Extremities exam: Present: other - Expanded Upper Extremity Exam Right Shoulder Exam: Present: tenderness, tenderness over AC joint. Absent: full ROM, swelling, deformity, crepidus, dislocation Elbow exam: Present: normal inspection Forearm Wrist exam: Present: normal inspection Hand Wrist exam: Present: tenderness (to the R thumb) - Back Exam Back exam: Present: normal inspection - Neurological Exam Neurological exam: Present: alert, oriented X3 - Psychiatric Psychiatric exam: Present: normal affect - Skin Skin exam: Present: warm, dry, intact ED Course Vital Signs 03/10/20 03/10/20 03/10/20 00:19 05:02 05:25 Temperature 97.8 F Pulse Rate 81 59 L Respiratory 16 14 18 Rate Blood Pressure Blood Pressure 138/93 144/82 [Left] Blood Pressure 144/82 [Right] O2 Sat by Pulse 99 100 100 Oximetry 03/10/20 03/10/20 03/10/20 05:27 05:30 06:00 Temperature Pulse Rate 59 L 62 Respiratory 18 15 19 Rate Blood Pressure 117/79 111/74 Blood Pressure [Left] Blood Pressure [Right] O2 Sat by Pulse 100 99 Oximetry 03/10/20 03/10/20 06:30 07:00 Temperature Pulse Rate 65 69 Respiratory 23 34 H Rate Blood Pressure 116/77 109/65 Blood Pressure [Left] Blood Pressure [Right] O2 Sat by Pulse 98 Oximetry - Reevaluation(s) Reevaluation #1: 03/10/20 06:59 Patient has not had any episodes of seizure during his time in the emergency department. 03/10/20 07:41 I spoke with patient's family member, Mr. Ricardo Gamez who states that the patient was watching TV when he noticed that the patient had jerking of his arms and legs that lasted approximately 10 to 15 minutes or until the ambulance arrived. He states that he was able to then walk to the ambulance after this episode. Reevaluation #2: 03/10/20 09:14 I discussed results of labs, imaging with patient. Patient now reports feeling dizzy with no sensation of vertigo but states that he feels lightheaded headed and like he was syncopized. Given this patient's report of seizure versus syncope, history of cardiac arrhythmia we will plan for patient to be admitted for likely observation and further testing. ED Medical Decision Making - Lab Data Result diagrams: 03/10/20 05:41 03/10/20 05:41 - EKG Data -: EKG Interpreted by Me EKG shows normal: sinus rhythm Rate: normal - EKG Data When compared to previous EKG there are: previous EKG unavailable 03/10/20 07:00 Nonspecific intraventricular conduction delay - Radiology Data Radiology results: report reviewed - Medical Decision Making Patient is a 49-year-old male with past medical history of a cardiac arrhythmia for which she states he was on propranolol for who presents to the emergency department with complaint of seizure. Patient was noted to have possible seizure activity by a family member. Differential includes electrolyte abn ormality, intracranial mass or bleed, new cardiac arrhythmia with syncope presenting as a seizure. Patient to be monitored closely for additional seizure activity. Patient has received IV Keppra prior to my evaluation. Patient also notes that he was on Wellbutrin but has not taken it for over 1 year. Critical care attestation.: If time is entered above; I have spent that time in minutes in the direct care of this critically ill patient, excluding procedure time. ED Disposition Clinical Impression: Seizure-like activity, Near syncope, Dizziness Disposition: -09 OP ADMIT IP TO THIS HOSP Is pt being admited?: Yes Does the pt Need Aspirin: No Condition: Stable Referrals: PRIMARY CARE, [Primary Care Provider] - 3-5 Days
[2020-03-10 06:59] LABS: Bilirubin,Urine NEG (Negative); Blood,Urine SM (Negative); Color,Urine Yellow (Yellow); Mucus,Urine FEW /HPF; Protein,Urine <15 mg/dL mg/dL (Negative); Urobilinogen,Urine < 2.0 mg/dL (<2.0)
--- NOTE | 2020-03-10 07:38 | Cat Scan Report ---
CT HEAD WITHOUT CONTRAST INDICATION: Headache, new onset seizures TECHNIQUE: All CT scans at this location are performed using CT dose reduction for ALARA by means of automated exposure control. COMPARISON: 04/28/2019 FINDINGS: BRAIN: No hemorrhage or mass effect are seen. No evidence of acute infarction is noted. ORBITS: Normal as visualized. SOFT TISSUES OF HEAD: Normal. CALVARIUM: Normal. VISUALIZED PARANASAL SINUSES AND MASTOID AIR CELLS: Clear. ADDITIONAL FINDINGS: None. IMPRESSION: No acute intracranial abnormality. Signer Name: Sathish Bang MD Signed: 03/10/2020 7:34 AM Workstation Name: [id number]
--- NOTE | 2020-03-10 07:56 | XRay Report ---
RIGHT HAND 2 VIEWS INDICATION: Thumb pain after question seizure. COMPARISON: None. IMPRESSION: Bone mineralization is within normal limits. An IV overlies the left fifth metacarpal. N o acute fracture or bone lesion is identified. There is suggestion of mild subluxation at the first m etacarpophalangeal joint with mild degenerative changes. No associated fracture is appreciated. The soft tissues are unremarkable. RIGHT SHOULDER 3 VIEWS INDICATION: shoulder pain/ttp after seizure. COMPARISON: None. IMPRESSION: No acute osseous or soft tissue abnormality. No significant DJD. CHEST 1 VIEW INDICATION: Seizure versus syncope. COMPARISON: None FINDINGS: Support devices: None. Heart: Within normal limits. Lungs/Pleura: No acute air space or interstitial disease. Additional findings: None. IMPRESSION: No acute findings. Signer Name: Ovidio Guajardo Jr, MD Signed: 03/10/2020 7:52 AM Workstation Name: [id number]
--- NOTE | 2020-03-10 12:54 | History and Physical Report ---
History of Present Illness Date of examination: 03/10/20 Chief complaint: Passed out History of present illness: He has a medical history of cardiac arrhythmias and presented to the emergency room with chief complaint of seizure episodes. Patient has had approximately 3 episodes of seizures in the past 3 to 4 weeks. He describes episodes where he loses consciousness with no aura but has confusion and urinary incontinence afterwards. He does not know how long he stays out. He denies any chest pain, palpitations prior to episodes. He states that he had multiple episodes of passing out while playing basketball. He was placed on a beta-lorenza at that time. This happened about 10 years ago. There was a plan for placement of PPM but he subsequently improved so this was not done. He is currently not on any medications at this time. Past History Past Medical History: other (Cardiac arrhythmias) Past Surgical History: No surgical history Medications and Allergies Allergies Allergy/AdvReac Type Severity Reaction Status Date / Time aripiprazole [From Abilify] Allergy Unknown Verified 09/06/17 12:14 fluphenazine enanthate Allergy Unknown Verified 09/06/17 12:14 [From Prolixin] fluphenazine HCl Allergy Unknown Verified 09/06/17 12:14 [From Prolixin] haloperidol [From Haldol] Allergy Unknown Verified 09/06/17 12:14 haloperidol lactate Allergy Unknown Verified 09/06/17 12:14 [From Haldol] metoclopramide [From Reglan] Allergy Vomiting Verified 12/15/18 08:27 olanzapine [From Zyprexa] Allergy Unknown Verified 09/06/17 12:14 Penicillins Allergy Unknown Verified 09/06/17 12:14 ziprasidone HCl [From Geodon] Allergy Unknown Verified 09/06/17 12:14 ziprasidone mesylate Allergy Unknown Verified 09/06/17 12:14 [From Geodon] Home Medications Medication Instructions Recorded Confirmed Last Taken Type buPROPion [Wellbutrin] 75 mg PO QDAY 12/17/18 12/17/18 Unknown History propranoloL [Inderal] 10 mg PO QDAY 12/17/18 12/17/18 Unknown History HYDROcodone/APAP 5-325 [[place] 1 each PO TID PRN #15 tablet 12/21/18 Unknown Rx 5-325 mg TAB] Sertraline [Zoloft] 25 mg PO QDAY #30 12/21/18 Unknown Rx buPROPion [Wellbutrin] 75 mg PO QDAY #30 tablet 12/21/18 Unknown Rx Ondansetron [Zofran ODT TAB] 4 mg PO Q8HR #21 tab.rapdis 04/26/19 Unknown Rx Pantoprazole [Protonix TAB] 40 mg PO QDAY #30 tablet 04/26/19 Unknown Rx Sucralfate [Carafate] 1 gm PO Q6HR #30 tablet 04/26/19 Unknown Rx Active Meds: Active Medications Sodium Chloride (Nacl 0.9% 1000 Ml) 1,000 mls @ 125 mls/hr IV ONCE ONE Stop: 03/10/20 13:03 Last Admin: 03/10/20 05:24 Dose: 125 mls/hr Documented by: Review of Systems All systems: negative Exam - Physical Exam Narrative exam: VITAL SIGNS: Reviewed. GENERAL: Awake HEAD: No signs of head trauma. EYES: Pupils are equal. Extraocular motions intact. MOUTH: Oropharynx is normal. NECK: No adenopathy, no JVD. CHEST: Chest with diminished breath sounds bilaterally. No wheezes, rales, or rhonchi. CARDIAC: normal S1 and S2, without murmurs, gallops, or rubs. ABDOMEN: Soft, non tender and non distended. No rebound or guarding, and no masses palpated. Bowel Sounds normal. MUSCULOSKELETAL: No edema NEUROLOGIC EXAM: Alert and oriented x3. No focal neurologic deficits SKIN: No obvious lesions - Constitutional Vitals: Temp Pulse Resp BP Pulse Ox 97.8 F 69 34 H 109/65 98 03/10/20 00:19 03/10/20 07:00 03/10/20 07:00 03/10/20 07:00 03/10/20 06:30 HEART Score - HEART Score Troponin: Troponin T < 0.010 ng/mL (0.00-0.029) 03/10/20 09:23 Results - Labs CBC & Chem 7: 03/10/20 05:41 03/10/20 05:41 Labs: Laboratory Last Values WBC 6.2 K/mm3 (4.5-11.0) 03/10/20 05:41 RBC 4.84 M/mm3 (3.65-5.03) 03/10/20 05:41 Hgb 13.9 gm/dl (11.8-15.2) 03/10/20 05:41 Hct 39.9 % (35.5-45.6) 03/10/20 05:41 MCV 83 fl (84-94) L 03/10/20 05:41 MCH 29 pg (28-32) 03/10/20 05:41 MCHC 35 % (32-34) H 03/10/20 05:41 RDW 15.4 % (13.2-15.2) H 03/10/20 05:41 Plt Count 199 K/mm3 (140-440) 03/10/20 05:41 Lymph % (Auto) 31.4 % (13.4-35.0) 03/10/20 05:41 [place] % (Auto) 11.8 % (0.0-7.3) H 03/10/20 05:41 Eos % (Auto) 3.6 % (0.0-4.3) 03/10/20 05:41 Baso % (Auto) 1.2 % (0.0-1.8) 03/10/20 05:41 Lymph # (Auto) 1.9 K/mm3 (1.2-5.4) 03/10/20 05:41 [place] # (Auto) 0.7 K/mm3 (0.0-0.8) 03/10/20 05:41 Eos # (Auto) 0.2 K/mm3 (0.0-0.4) 03/10/20 05:41 Baso # (Auto) 0.1 K/mm3 (0.0-0.1) 03/10/20 05:41 Seg Neutrophils % 52.0 % (40.0-70.0) 03/10/20 05:41 Seg Neutrophils # 3.2 K/mm3 (1.8-7.7) 03/10/20 05:41 Sodium 139 mmol/L (137-145) 03/10/20 05:41 Potassium 3.8 mmol/L (3.6-5.0) 03/10/20 05:41 Chloride 103.2 mmol/L (98-107) 03/10/20 05:41 Carbon Dioxide 26 mmol/L (22-30) 03/10/20 05:41 Anion Gap 14 mmol/L 03/10/20 05:41 BUN 11 mg/dL (9-20) 03/10/20 05:41 Creatinine 0.8 mg/dL (0.8-1.3) 03/10/20 05:41 Estimated GFR > 60 ml/min 03/10/20 05:41 BUN/Creatinine Ratio 14 % 03/10/20 05:41 Glucose 79 mg/dL (75-100) 03/10/20 05:41 Calcium 8.9 mg/dL (8.4-10.2) 03/10/20 05:41 Magnesium 2.10 mg/dL (1.7-2.3) 03/10/20 09:23 Total Bilirubin 0.40 mg/dL (0.1-1.2) 03/10/20 05:41 AST 37 units/L (5-40) 03/10/20 05:41 ALT 19 units/L (7-56) 03/10/20 05:41 Alkaline Phosphatase 88 units/L (35-129) 03/10/20 05:41 Total Creatine Kinase 89 units/L (55-170) 03/10/20 05:41 Troponin T < 0.010 ng/mL (0.00-0.029) 03/10/20 09:23 Total Protein 7.1 g/dL (6.3-8.2) 03/10/20 05:41 Albumin 4.2 g/dL (3.9-5) 03/10/20 05:41 Albumin/Globulin Ratio 1.4 % 03/10/20 05:41 TSH 2.170 mlU/mL (0.270-4.200) 03/10/20 05:41 Urine Color Yellow (Yellow) 03/10/20 Unknown Urine Turbidity Clear (Clear) 03/10/20 Unknown Urine pH 5.0 (5.0-7.0) 03/10/20 Unknown Ur Specific [place] 1.017 (1.003-1.030) 03/10/20 Unknown Urine Protein <15 mg/dl mg/dL (Negative) 03/10/20 Unknown Urine Glucose (UA) Neg mg/dL (Negative) 03/10/20 Unknown Urine Ketones Neg mg/dL (Negative) 03/10/20 Unknown Urine Blood Sm (Negative) 03/10/20 Unknown Urine Nitrite Neg (Negative) 03/10/20 Unknown Urine Bilirubin Neg (Negative) 03/10/20 Unknown Urine Urobilinogen < 2.0 mg/dL (<2.0) 03/10/20 Unknown Ur Leukocyte Esterase Neg (Negative) 03/10/20 Unknown Urine WBC (Auto) 1.0 /HPF (0.0-6.0) 03/10/20 Unknown Urine RBC (Auto) 2.0 /HPF (0.0-6.0) 03/10/20 Unknown Urine Mucus Few /HPF 03/10/20 Unknown Urine Opiates Screen Presumptive negative 03/10/20 Unknown Urine Methadone Screen Presumptive negative 03/10/20 Unknown Ur Barbiturates Screen Presumptive positive 03/10/20 Unknown Ur Phencyclidine Scrn Presumptive negative 03/10/20 Unknown Ur Amphetamines Screen Presumptive negative 03/10/20 Unknown U Benzodiazepines Scrn Presumptive negative 03/10/20 Unknown Urine Cocaine Screen Presumptive positive 03/10/20 Unknown U Marijuana (THC) Screen Presumptive negative 03/10/20 Unknown Drugs of Abuse Note Disclamer 03/10/20 Unknown Plasma/Serum Alcohol 0.02 % (0-0.07) 03/10/20 05:41 Assessment and Plan Assessment and plan: 1. Seizure episode Start Keppra 500 mg twice daily Neurology evaluation MRI with and without contrast. EEG Neurochecks every 2 hours 2. Syncope with possible arrhythmia EKG shows sinus rhythm with interventricular conduction defects Echocardiogram to rule out possible HOCUM Continue telemetry monitoring Will get cardiology evaluation pending above test results DVT prophylaxis-Heparin Full code
[2020-03-10] MEDS ORDERED: ONDANSETRON 4 MG/2 ML INJ IV PRN (12:58)
[2020-03-10] MEDS ORDERED: LORazepam 2 MG/ML VIAL IV ONE (13:52)
[2020-03-10] MEDS ORDERED: diphenhydrAMINE 50 MG/ML VIAL ONE (15:01)
--- NOTE | 2020-03-10 15:03 | Magnetic Resonance Report ---
MRI BRAIN 03/10/2020 INDICATION / CLINICAL INFORMATION: Seizure disorder. TECHNIQUE: Multiplanar, multisequence MR images of the brain were obtained. COMPARISON: None available. FINDINGS: BRAIN / INTRACRANIAL CONTENTS: Unenhanced and enhanced MR images of the brain were obtained. There is no evidence of acute abnormality. Ventricles and sulci are normal in size and shape. There is no evidence of ischemic injury, demyelina tion, hemorrhage, or mass. There are no abnormal extra-axial fluid collections. Postcontrast images demonstrate no abnormal contrast enhancement. EXTRACRANIAL: Unremarkable CRANIOCERVICAL JUNCTION: No significant abnormality. VASCULAR FLOW-VOIDS: No significant abnormality. IMPRESSION: Negative unenhanced and enhanced MRI of the brain. Signer Name: Zhao Bansal MD Signed: 03/10/2020 2:58 PM Workstation Name: [id number]
[2020-03-10] MEDS ORDERED: diphenhydrAMINE 50 MG/ML VIAL IV ONE (15:05)
[2020-03-10] MEDS: methylPREDNISolone Sod Succinate 125 MG/2 ML INJ IV ONE ×2 (15:11→23:00)
[2020-03-10] MEDS: ENOXAPARIN 40 MG/0.4 ML INJ SUB-Q SCH (15:19)
[2020-03-10] MEDS ORDERED: EPINEPHrine/PF 1 MG/1 ML INJ IM ONE (15:22)
[2020-03-10] MEDS ORDERED: ONDANSETRON 4 MG/2 ML INJ IV ONE (15:23)
[2020-03-10] MEDS: FAMOTIDINE 20 MG/2 ML INJ IV ONE ×2 (15:24→23:00)
[2020-03-10] MEDS ORDERED: MORPHINE 4 MG/1 ML INJ IV ONE (15:40)
[2020-03-10] MEDS ORDERED: methylPREDNISolone Sod Suc 80 MG in SODIUM CHLORIDE 0.9% 100 ML IV STA (18:47)
[2020-03-10] MEDS ORDERED: VANCOMYCIN/NS 1 GM/250 ML 1 GM/250 ML BAG IV ONE (18:54)
[2020-03-10] MEDS ORDERED: methylPREDNISolone Sod Suc 40 MG in SODIUM CHLORIDE 0.9% 100 ML IV SCH (22:00)
[2020-03-11] MEDS: levETIRAcetam 500 MG TAB PO SCH ×3 (01:00→21:51)
[2020-03-11] MEDS: methylPREDNISolone Sod Succinate 40 MG/1 ML INJ IV SCH ×4 (01:00→21:51)
[2020-03-11] MEDS: diphenhydrAMINE 50 MG/ML VIAL IV PRN ×4 (01:00→21:57)
--- NOTE | 2020-03-11 02:35 | Cat Scan Report ---
CT ABDOMEN AND PELVIS WITHOUT CONTRAST INDICATION: Patient complains of suprapubic abdominal pain. CONTRAST: Without IV COMPARISON: 04/26/[address] scans at this location are performed using CT dose reduction for ALARA by means of automated e xposure control. FINDINGS: Lung bases show mild atelectatic changes. No pneumoperitoneum is seen. No evidence of bowel obstruction is noted. No focal inflammatory changes are seen. Gallbladder has been removed. Small cy st is again seen in the right lobe of the liver. No other masses are seen. No urinary tract calculi o r evidence of obstruction are noted. No lymphadenopathy is seen. No free fluid is noted. Mild colonic diverticulosis is seen without evidence of diverticulitis. Patient reports history of appendectomy 1 years ago but the appendix is present and appears within no rmal limits. IMPRESSION: No acute abnormalities are seen Signer Name: Sathish Bang MD Signed: 03/11/2020 2:31 AM Workstation Name: [id number]
[2020-03-11 08:45] LABS: Hematocrit 40.3 % (35.5-45.6); Hemoglobin 13.8 gm/dl (11.8-15.2); Mean Corpuscular HGB Conc 34 % (32-34); Mean Corpuscular Volume 83 fl (84-94); Platelet Count 220 K/mm3 (140-440); Red Blood Count 4.88 M/mm3 (3.65-5.03); Red Cell Distribution Width 15.3 % (13.2-15.2)
[2020-03-11 09:10] LABS: Alanine Aminotransferase 15 units/L (7-56); Albumin 4.2 g/dL (3.9-5); BUN/Creatinine Ratio 20; Blood Urea Nitrogen 16 mg/dL (9-20); Calcium 9.3 mg/dL (8.4-10.2); Hemolysis Index 3
[2020-03-11 10:52] LABS: Total Cells Counted 100
[2020-03-11 10:53] LABS: Platelet Estimate Consistent w Auto; RBC Morphology Normal
[2020-03-11] MEDS: ENOXAPARIN 40 MG/0.4 ML INJ SUB-Q SCH (11:05)
--- NOTE | 2020-03-11 11:07 | Consultation ---
<LETICIA URIBE - Last Filed: 03/11/20 11:07> History of Present Illness Consult date: 03/11/20 Consult reason: syncope Past History Past Medical History: other (Cardiac arrhythmias) Past Surgical History: No surgical history Medications and Allergies Allergies Allergy/AdvReac Type Severity Reaction Status Date / Time aripiprazole [From Abilify] Allergy Unknown Verified 09/06/17 12:14 fluphenazine enanthate Allergy Unknown Verified 03/11/20 10:12 [From Prolixin] fluphenazine HCl Allergy Unknown Verified 09/06/17 12:14 [From Prolixin] Gadolinium-Containing Allergy Rash Verified 03/11/20 10:06 Contrast Medi haloperidol [From Haldol] Allergy Unknown Verified 09/06/17 12:14 haloperidol lactate Allergy Unknown Verified 09/06/17 12:14 [From Haldol] metoclopramide [From Reglan] Allergy Vomiting Verified 12/15/18 08:27 olanzapine [From Zyprexa] Allergy Unknown Verified 09/06/17 12:14 Penicillins Allergy Unknown Verified 09/06/17 12:14 ziprasidone HCl [From Geodon] Allergy Unknown Verified 09/06/17 12:14 ziprasidone mesylate Allergy Unknown Verified 09/06/17 12:14 [From Geodon] IV contrast Allergy Severe Rash Uncoded 03/10/20 15:43 Home Medications Medication Instructions Recorded Confirmed Last Taken Type buPROPion [Wellbutrin] 75 mg PO QDAY 12/17/18 12/17/18 Unknown History propranoloL [Inderal] 10 mg PO QDAY 12/17/18 12/17/18 Unknown History HYDROcodone/APAP 5-325 [[place] 1 each PO TID PRN #15 tablet 12/21/18 Unknown Rx 5-325 mg TAB] Sertraline [Zoloft] 25 mg PO QDAY #30 12/21/18 Unknown Rx buPROPion [Wellbutrin] 75 mg PO QDAY #30 tablet 12/21/18 Unknown Rx Ondansetron [Zofran ODT TAB] 4 mg PO Q8HR #21 tab.rapdis 04/26/19 Unknown Rx Pantoprazole [Protonix TAB] 40 mg PO QDAY #30 tablet 04/26/19 Unknown Rx Sucralfate [Carafate] 1 gm PO Q6HR #30 tablet 04/26/19 Unknown Rx Active Meds: Active Medications Acetaminophen (Acetaminophen 325 Mg Tab) 650 mg PO Q4H PRN PRN Reason: Pain MILD(1-3)/Fever >100.5/BERGMAN Diphenhydramine HCl (Diphenhydramine 50 Mg/Ml Vial) 50 mg IV Q8HR PRN PRN Reason: Itching Last Admin: 03/11/20 08:55 Dose: 50 mg Documented by: Enoxaparin Sodium (Enoxaparin 40 Mg/0.4 Ml Inj) 40 mg SUB-Q DAILY [facility]; Protocol Stop: 03/17/20 13:59 Last Admin: 03/11/20 11:05 Dose: 40 mg Documented by: Levetiracetam (Levetiracetam 500 Mg Tab) 500 mg PO BID [facility] Last Admin: 03/11/20 11:05 Dose: 500 mg Documented by: Methylprednisolone Sodium Succinate (Methylprednisolone Sod Succinate 40 Mg/1 Ml Inj) 40 mg IV Q8HR [facility] Last Admin: 03/11/20 05:53 Dose: 40 mg Documented by: Ondansetron HCl (Ondansetron 4 Mg/2 Ml Inj) 4 mg IV Q8H PRN PRN Reason: Nausea And Vomiting Sodium Chloride (Sodium Chloride 0.9% 10 Ml Flush Syringe) 10 ml IV BID [facility] Last Admin: 03/11/20 11:05 Dose: 10 ml Documented by: Sodium Chloride (Sodium Chloride 0.9% 10 Ml Flush Syringe) 10 ml IV PRN PRN PRN Reason: LINE FLUSH Physical Examination Vital Signs Temp Pulse Resp BP Pulse Ox 97.8 F 81 16 138/93 99 03/10/20 00:19 03/10/20 00:19 03/10/20 00:19 03/10/20 00:19 03/10/20 00:19 Results 03/11/20 04:39 03/11/20 04:39 Cardiac Enzymes 03/11/20 Range/Units 04:39 AST 30 (5-40) units/L CBC 03/11/20 Range/Units 04:39 WBC 9.1 (4.5-11.0) K/mm3 RBC 4.88 (3.65-5.03) M/mm3 Hgb 13.8 (11.8-15.2) gm/dl Hct 40.3 (35.5-45.6) % Plt Count 220 (140-440) K/mm3 Comprehensive Metabolic Panel 03/11/20 Range/Units 04:39 Sodium 140 (137-145) mmol/L Potassium 4.3 (3.6-5.0) mmol/L Chloride 106.9 (98-107) mmol/L Carbon Dioxide 24 (22-30) mmol/L BUN 16 (9-20) mg/dL Creatinine 0.8 (0.8-1.3) mg/dL Glucose 141 H (75-100) mg/dL Calcium 9.3 (8.4-10.2) mg/dL AST 30 (5-40) units/L ALT 15 (7-56) units/L Alkaline Phosphatase 83 (35-129) units/L Total Protein 6.9 (6.3-8.2) g/dL Albumin 4.2 (3.9-5) g/dL <LAKEISHA MARTE - Last Filed: 03/11/20 12:09> History of Present Illness Consult reason: syncope History of present illness: 49-year-old man with no prior cardiac history, presents with syncope. He describes 7 episodes of brief syncope for the past month. The most recent episode was observed by his uncle, and was associated with generalized shaking, reported as a seizure. Following the episode, the patient was confused, describing what appeared to be a post ictal confusion. There was no chest pain, no shortness of breath, no palpitations. There is no lower extremity edema. His past history is notable for PTSD, for which he takes Ativan. He also tested positive for cocaine on the drug screen in the hospital. He describes a remote episode many years ago of syncope for which he underwent a cardiac evaluation that was negative. He describes no previous history of seizures. Currently, patient is awake, alert and oriented x3. EKG is normal sinus rhythm, normal ECG. Chest x-ray is normal size cardiac silhouette and clear lungs. Today, he underwent an echocardiogram, reported with a left ventricular ejection fraction of 60 to 65%. Past History Past Medical History: other (PTSD) Medications and Allergies Active Meds: Active Medications Acetaminophen (Acetaminophen 325 Mg Tab) 650 mg PO Q4H PRN PRN Reason: Pain MILD(1-3)/Fever >100.5/BERGMAN Diphenhydramine HCl (Diphenhydramine 50 Mg/Ml Vial) 50 mg IV Q8HR PRN PRN Reason: Itching Last Admin: 03/11/20 08:55 Dose: 50 mg Documented by: Enoxaparin Sodium (Enoxaparin 40 Mg/0.4 Ml Inj) 40 mg SUB-Q DAILY [facility]; Protocol Stop: 03/17/20 13:59 Last Admin: 03/11/20 11:05 Dose: 40 mg Documented by: Levetiracetam (Levetiracetam 500 Mg Tab) 500 mg PO BID [facility] Last Admin: 03/11/20 11:05 Dose: 500 mg Documented by: Methylprednisolone Sodium Succinate (Methylprednisolone Sod Succinate 40 Mg/1 Ml Inj) 40 mg IV Q8HR [facility] Last Admin: 03/11/20 05:53 Dose: 40 mg Documented by: Ondansetron HCl (Ondansetron 4 Mg/2 Ml Inj) 4 mg IV Q8H PRN PRN Reason: Nausea And Vomiting Sodium Chloride (Sodium Chloride 0.9% 10 Ml Flush Syringe) 10 ml IV BID [facility] Last Admin: 03/11/20 11:05 Dose: 10 ml Documented by: Sodium Chloride (Sodium Chloride 0.9% 10 Ml Flush Syringe) 10 ml IV PRN PRN PRN Reason: LINE FLUSH Review of Systems Cardiovascular: syncope, no chest pain, no orthopnea, no palpitations, no rapid/irregular heart beat, no edema, no lightheadedness, no shortness of breath Physical Examination Vital Signs Temp Pulse Resp BP Pulse Ox 97.8 F 81 16 138/93 99 03/10/20 00:19 03/10/20 00:19 03/10/20 00:19 03/10/20 00:19 03/10/20 00:19 General appearance: no acute distress HEENT: Positive: PERRL Neck: Positive: neck supple Cardiac: Positive: Reg Rate and Rhythm Lungs: Positive: Decreased Breath Sounds Neuro: Positive: Grossly Intact Abdomen: Positive: Soft Male genitourinary: Positive: deferred Skin: Positive: Clear Extremities: Absent: edema Results 03/11/20 04:39 03/11/20 04:39 Cardiac Enzymes 03/11/20 Range/Units 04:39 AST 30 (5-40) units/L CBC 03/11/20 Range/Units 04:39 WBC 9.1 (4.5-11.0) K/mm3 RBC 4.88 (3.65-5.03) M/mm3 Hgb 13.8 (11.8-15.2) gm/dl Hct 40.3 (35.5-45.6) % Plt Count 220 (140-440) K/mm3 Comprehensive Metabolic Panel 03/11/20 Range/Units 04:39 Sodium 140 (137-145) mmol/L Potassium 4.3 (3.6-5.0) mmol/L Chloride 106.9 (98-107) mmol/L Carbon Dioxide 24 (22-30) mmol/L BUN 16 (9-20) mg/dL Creatinine 0.8 (0.8-1.3) mg/dL Glucose 141 H (75-100) mg/dL Calcium 9.3 (8.4-10.2) mg/dL AST 30 (5-40) units/L ALT 15 (7-56) units/L Alkaline Phosphatase 83 (35-129) units/L Total Protein 6.9 (6.3-8.2) g/dL Albumin 4.2 (3.9-5) g/dL EKG interpretations - Telemetry EKG Rhythm: Sinus Rhythm Assessment and Plan - Patient Problems (1) Syncope Current Visit: Yes Status: Acute Plan to address problem: Patient with recurrent syncope, described by a bystander as a generalized seizure episode, followed by what the patient aptly describes as post ictal confusion. Neurology has been consulted for further assessment of what is likely seizure disorder. Cardiac work-up so far, ECG is normal, echocardiogram is normal with ejection fr action 60 to 65%. As outpatient, depending on results of the neurological evaluation, we may consider 14 to 30-day event monitor.
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
[2020-03-11] MEDS: ALPRAZolam 0.5 MG TAB PO PRN ×2 (17:27→21:51)
[2020-03-11] MEDS: ACETAMINOPHEN 325 MG TAB PO PRN (21:58)
[2020-03-12] MEDS ORDERED: traMADol 50 MG TAB PO ONE (01:54)
[2020-03-12] MEDS: methylPREDNISolone Sod Succinate 40 MG/1 ML INJ IV SCH ×3 (06:43→21:19)
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
[2020-03-12] MEDS: levETIRAcetam 500 MG TAB PO SCH ×2 (10:22→21:19)
[2020-03-12] MEDS: ENOXAPARIN 40 MG/0.4 ML INJ SUB-Q SCH (10:22)
[2020-03-12] MEDS: ALPRAZolam 0.5 MG TAB PO PRN ×2 (10:32→21:18)
[2020-03-12] MEDS: diphenhydrAMINE 50 MG/ML VIAL IV PRN ×2 (10:32→21:18)
[2020-03-12] MEDS ORDERED: traMADol 50 MG TAB PO SCH (12:30)
--- NOTE | 2020-03-12 13:38 | Progress Note ---
Assessment and Plan Assessment and plan: 1. Seizure episode Continue Keppra 500 mg twice daily Neurology evaluation appreciated MRI with and without contrast - negative for acute abnormality. EEG still pending Had anaphylaxix to gadolinium yesterday - will hold contrast studies for now. Neurochecks every 2 hours 2. Syncope with possible arrhythmia Cardiology evaluation appreciated Follow up with cardiology at discharge for event monitor 3. Anaphylaxis to gadolinium -Resolved -Taper off steroids 4. PTSD -Not on medications -Psych consulted DVT prophylaxis-Heparin Full code History Interval history: He mentions he had another episode of passing out yesterday Will get orthostatic vitals. He had anaphylaxis to gadolinium agent - will hold further contrast studies for now Cardiology and neurology following. Hospitalist Physical - Physical exam Narrative exam: VITAL SIGNS: Reviewed. GENERAL: Awake HEAD: No signs of head trauma. EYES: Pupils are equal. Extraocular motions intact. MOUTH: Oropharynx is normal. NECK: No adenopathy, no JVD. CHEST: Chest with diminished breath sounds bilaterally. No wheezes, rales, or rhonchi. CARDIAC: normal S1 and S2, without murmurs, gallops, or rubs. ABDOMEN: Soft, non tender and non distended. No rebound or guarding, and no masses palpated. Bowel Sounds normal. MUSCULOSKELETAL: No edema NEUROLOGIC EXAM: Alert and oriented x3. No focal neurologic deficits SKIN: No obvious lesions - Constitutional Vitals: Temp Pulse Resp BP Pulse Ox 97.9 F 61 18 121/77 97 03/12/20 08:02 03/12/20 08:02 03/12/20 08:02 03/12/20 08:02 03/12/20 08:02 HEART Score - HEART Score Troponin: Troponin T < 0.010 ng/mL (0.00-0.029) 03/10/20 09:23 Results - Labs CBC & Chem 7: 03/11/20 04:39 03/11/20 04:39 Labs: Laboratory Last Values WBC 9.1 K/mm3 (4.5-11.0) 03/11/20 04:39 RBC 4.88 M/mm3 (3.65-5.03) 03/11/20 04:39 Hgb 13.8 gm/dl (11.8-15.2) 03/11/20 04:39 Hct 40.3 % (35.5-45.6) 03/11/20 04:39 MCV 83 fl (84-94) L 03/11/20 04:39 MCH 28 pg (28-32) 03/11/20 04:39 MCHC 34 % (32-34) 03/11/20 04:39 RDW 15.3 % (13.2-15.2) H 03/11/20 04:39 Plt Count 220 K/mm3 (140-440) 03/11/20 04:39 Lymph % (Auto) 31.4 % (13.4-35.0) 03/10/20 05:41 [place] % (Auto) 11.8 % (0.0-7.3) H 03/10/20 05:41 Eos % (Auto) 3.6 % (0.0-4.3) 03/10/20 05:41 Baso % (Auto) 1.2 % (0.0-1.8) 03/10/20 05:41 Lymph # (Auto) 1.9 K/mm3 (1.2-5.4) 03/10/20 05:41 [place] # (Auto) 0.7 K/mm3 (0.0-0.8) 03/10/20 05:41 Eos # (Auto) 0.2 K/mm3 (0.0-0.4) 03/10/20 05:41 Baso # (Auto) 0.1 K/mm3 (0.0-0.1) 03/10/20 05:41 Add Manual Diff Complete 03/11/20 04:39 Total Counted 100 03/11/20 04:39 Seg Neutrophils % Vice Chancellor 03/11/20 04:39 Seg Neuts % (Manual) 95.0 % (40.0-70.0) H 03/11/20 04:39 Lymphocytes % (Manual) 4.0 % (13.4-35.0) L 03/11/20 04:39 Monocytes % (Manual) 1.0 % (0.0-7.3) 03/11/20 04:39 Nucleated RBC % Not Reportable 03/11/20 04:39 Seg Neutrophils # 3.2 K/mm3 (1.8-7.7) 03/10/20 05:41 Seg Neutrophils # Man 8.6 K/mm3 (1.8-7.7) H 03/11/20 04:39 Band Neutrophils # 0.0 K/mm3 03/11/20 04:39 Lymphocytes # (Manual) 0.4 K/mm3 (1.2-5.4) L 03/11/20 04:39 Abs React Lymphs (Man) 0.0 K/mm3 03/11/20 04:39 Monocytes # (Manual) 0.1 K/mm3 (0.0-0.8) 03/11/20 04:39 Eosinophils # (Manual) 0.0 K/mm3 (0.0-0.4) 03/11/20 04:39 Basophils # (Manual) 0.0 K/mm3 (0.0-0.1) 03/11/20 04:39 Metamyelocytes # 0.0 K/mm3 03/11/20 04:39 Myelocytes # 0.0 K/mm3 03/11/20 04:39 Promyelocytes # 0.0 K/mm3 03/11/20 04:39 Blast Cells # 0.0 K/mm3 03/11/20 04:39 WBC Morphology Not Reportable 03/11/20 04:39 Hypersegmented Neuts Not Reportable 03/11/20 04:39 Hyposegmented Neuts Not Reportable 03/11/20 04:39 Hypogranular Neuts Not Reportable 03/11/20 04:39 Smudge Cells Not Reportable 03/11/20 04:39 Toxic Granulation Not Reportable 03/11/20 04:39 Toxic Vacuolation Not Reportable 03/11/20 04:39 Dohle Bodies Not Reportable 03/11/20 04:39 Pelger-Huet Anomaly Not Reportable 03/11/20 04:39 Yue Rods Not Reportable 03/11/20 04:39 Platelet Estimate Consistent w auto 03/11/20 04:39 Clumped Platelets Not Reportable 03/11/20 04:39 Plt Clumps, EDTA Not Reportable 03/11/20 04:39 Large Platelets Not Reportable 03/11/20 04:39 Giant Platelets Not Reportable 03/11/20 04:39 Platelet Satelliting Not Reportable 03/11/20 04:39 Plt Morphology Comment Not Reportable 03/11/20 04:39 RBC Morphology Normal 03/11/20 04:39 Dimorphic RBCs Not Reportable 03/11/20 04:39 Polychromasia Not Reportable 03/11/20 04:39 Hypochromasia Not Reportable 03/11/20 04:39 Poikilocytosis Not Reportable 03/11/20 04:39 Anisocytosis Not Reportable 03/11/20 04:39 Microcytosis Not Reportable 03/11/20 04:39 Macrocytosis Not Reportable 03/11/20 04:39 Spherocytes Not Reportable 03/11/20 04:39 Pappenheimer Bodies Not Reportable 03/11/20 04:39 Sickle Cells Not Reportable 03/11/20 04:39 Target Cells Not Reportable 03/11/20 04:39 Tear Drop Cells Not Reportable 03/11/20 04:39 Ovalocytes Not Reportable 03/11/20 04:39 Helmet Cells Not Reportable 03/11/20 04:39 [place] Bodies Not Reportable 03/11/20 04:39 [place] Rings Not Reportable 03/11/20 04:39 Elijah Cells Not Reportable 03/11/20 04:39 Bite Cells Not Reportable 03/11/20 04:39 Crenated Cell Not Reportable 03/11/20 04:39 Elliptocytes Not Reportable 03/11/20 04:39 Acanthocytes (Spur) Not Reportable 03/11/20 04:39 Rouleaux Not Reportable 03/11/20 04:39 Hemoglobin C Crystals Not Reportable 03/11/20 04:39 Schistocytes Not Reportable 03/11/20 04:39 Malaria parasites Not Reportable 03/11/20 04:39 Francis Bodies Not Reportable 03/11/20 04:39 Hem Pathologist Commnt No 03/11/20 04:39 Sodium 140 mmol/L (137-145) 03/11/20 04:39 Potassium 4.3 mmol/L (3.6-5.0) 03/11/20 04:39 Chloride 106.9 mmol/L (98-107) 03/11/20 04:39 Carbon Dioxide 24 mmol/L (22-30) 03/11/20 04:39 Anion Gap 13 mmol/L 03/11/20 04:39 BUN 16 mg/dL (9-20) 03/11/20 04:39 Creatinine 0.8 mg/dL (0.8-1.3) 03/11/20 04:39 Estimated GFR > 60 ml/min 03/11/20 04:39 BUN/Creatinine Ratio 20 % 03/11/20 04:39 Glucose 141 mg/dL (75-100) H 03/11/20 04:39 Calcium 9.3 mg/dL (8.4-10.2) 03/11/20 04:39 Magnesium 2.10 mg/dL (1.7-2.3) 03/10/20 09:23 Total Bilirubin 0.40 mg/dL (0.1-1.2) 03/11/20 04:39 AST 30 units/L (5-40) 03/11/20 04:39 ALT 15 units/L (7-56) 03/11/20 04:39 Alkaline Phosphatase 83 units/L (35-129) 03/11/20 04:39 Total Creatine Kinase 89 units/L (55-170) 03/10/20 05:41 Troponin T < 0.010 ng/mL (0.00-0.029) 03/10/20 09:23 Total Protein 6.9 g/dL (6.3-8.2) 03/11/20 04:39 Albumin 4.2 g/dL (3.9-5) 03/11/20 04:39 Albumin/Globulin Ratio 1.6 % 03/11/20 04:39 TSH 2.170 mlU/mL (0.270-4.200) 03/10/20 05:41 Urine Color Yellow (Yellow) 03/10/20 Unknown Urine Turbidity Clear (Clear) 03/10/20 Unknown Urine pH 5.0 (5.0-7.0) 03/10/20 Unknown Ur Specific [place] 1.017 (1.003-1.030) 03/10/20 Unknown Urine Protein <15 mg/dl mg/dL (Negative) 03/10/20 Unknown Urine Glucose (UA) Neg mg/dL (Negative) 03/10/20 Unknown Urine Ketones Neg mg/dL (Negative) 03/10/20 Unknown Urine Blood Sm (Negative) 03/10/20 Unknown Urine Nitrite Neg (Negative) 03/10/20 Unknown Urine Bilirubin Neg (Negative) 03/10/20 Unknown Urine Urobilinogen < 2.0 mg/dL (<2.0) 03/10/20 Unknown Ur Leukocyte Esterase Neg (Negative) 03/10/20 Unknown Urine WBC (Auto) 1.0 /HPF (0.0-6.0) 03/10/20 Unknown Urine RBC (Auto) 2.0 /HPF (0.0-6.0) 03/10/20 Unknown Urine Mucus Few /HPF 03/10/20 Unknown Urine Opiates Screen Presumptive negative 03/10/20 Unknown Urine Methadone Screen Presumptive negative 03/10/20 Unknown Ur Barbiturates Screen Presumptive positive 03/10/20 Unknown Ur Phencyclidine Scrn Presumptive negative 03/10/20 Unknown Ur Amphetamines Screen Presumptive negative 03/10/20 Unknown U Benzodiazepines Scrn Presumptive negative 03/10/20 Unknown Urine Cocaine Screen Presumptive positive 03/10/20 Unknown U Marijuana (THC) Screen Presumptive negative 03/10/20 Unknown Drugs of Abuse Note Disclamer 03/10/20 Unknown Plasma/Serum Alcohol 0.02 % (0-0.07) 03/10/20 05:41 - Diagnostic Impressions Diagnostic Impressions: Echocardiogram 03/10/20 12:56 Transthoracic Echocardiogram Indication: Seizure; HOCM BP: 91/54 HR: 65 Conclusions *The left ventricular chamber size is normal. *There is no left ventricular hypertrophy. *Global left ventricular wall motion and contractility are within normal limits. *The left atrial chamber size is normal. *The right ventricular systolic pressure is calculated at 20 mmHg. Findings Left Ventricle: The left ventricular chamber size is normal. There is no left ventricular hypertrophy. Global left ventricular wall motion and contractility are within normal limits. Global left ventricular systolic function is normal. The estimated ejection fraction is 60-65%. Abnormal left ventricular diastolic filling is observed, consistent with impaired relaxation. Left Atrium: The left atrial chamber size is normal. Right Ventricle: The right ventricular cavity size is normal. The right ventricular global systolic function is normal. Right Atrium: The right atrial cavity size is normal. Aortic Valve: There is no evidence of aortic valve thickening. There is no evidence of aortic regurgitation. Mitral Valve: The mitral valve leaflets do not appear thickened. There is trace of mitral regurgitation. Tricuspid Valve: The tricuspid valve leaflets are normal. There is trace tricuspid regurgitation. The right ventricular systolic pressure is calculated at 20 mmHg. Pulmonic Valve: There is no evidence of pulmonic valve thickening. There is trace pulmonic regurgitation. Pericardium: There is no pericardial effusion. Aorta: The aorta appears normal. Venous: The inferior vena cava appears normal in size. Measurements Chambers 2D Name Value Normal Range IVSd (2D) 1.06 cm (0.6 - 1.1) LVPWd (2D) 0.97 cm (0.6 - 1.1) LVIDd (2D) 4.01 cm (3.7 - 5.6) LVIDs (2D) 2.71 cm (2 - 3.8) LV FS (2D) 32.48 % - EF Teichholz (2D) 61.37 % - Ao root diameter (2D) 3.26 cm (2 - 3.7) Volumes/Mass Name Value Normal Range LA ESV SP 4CH (A/L) 55.68 ml - LA ESV SP 2CH (A/L) 44.57 ml - LA ESV BP (A/L) 52.82 ml - LA ESV BP (A/L) index 26.81 ml/m2 - LA ESV SP 4CH (MOD) 52.83 ml - LA ESV SP 2CH (MOD) 41.58 ml - LA ESV BP (MOD) 49.09 ml - LA ESV BP (MOD) index 24.92 ml/m2 - Diastolic/Systolic Function Name Value Normal Range MV E-wave Vmax 0.91 m/sec - MV deceleration time 249.63 msec - MV A-wave Vmax 0.87 m/sec - MV E:A ratio 1.05 ratio - Aortic Valve Name Value Normal Range AV Vmax 1.83 m/sec - AV VTI 39.57 cm - AV peak gradient 13.46 mmHg - AV mean gradient 6.78 mmHg - LVOT diameter 2.1 cm - LVOT Vmax 1.52 m/sec - LVOT VTI 34.72 cm - LVOT peak gradient 9.28 mmHg - LVOT mean gradient 5.18 mmHg - SV LVOT 120.22 ml - MATTY (continuity Vmax) 2.88 cm2 - MATTY (continuity VTI) 3.04 cm2 - Ascending Ao 3.04 cm - Tricuspid Valve Name Value Normal Range TR Vmax 2.07 m/sec - TR peak gradient 17.16 mmHg - RAP 3 mmHg - RVSP 20 mmHg - IVC diameter 1.8 cm (1.2 - 2.3) Pulmonic Valve/Qp:Qs Name Value Normal Range PV Vmax 0.86 m/sec - PV peak gradient 2.97 mmHg - DE end-diastolic Vmax 0.35 m/sec - PV acceleration time 171.27 msec - [place]/IV: Voiding Method Toilet IV Catheter Type [Left Peripheral IV Antecubital] Active Medications - Current Medications Current Medications: Generic Name Dose Route Start Last Admin Trade Name Freq PRN Reason Stop Dose Admin Acetaminophen 650 mg 03/10/20 12:58 03/11/20 21:58 Acetaminophen 325 Mg Tab PO 650 mg Q4H PRN Administration Pain MILD(1-3)/Fever >100.5/BERGMAN Alprazolam 0.5 mg 03/11/20 16:30 03/12/20 10:32 Alprazolam 0.5 Mg Tab PO 0.5 mg Q8H PRN Administration Anxiety Diphenhydramine HCl 50 mg 03/10/20 18:48 03/12/20 10:32 Diphenhydramine 50 Mg/Ml Vial IV 50 mg Q8HR PRN Administration Itching Enoxaparin Sodium 40 mg 03/10/20 14:00 03/12/20 10:22 Enoxaparin 40 Mg/0.4 Ml Inj SUB-Q 03/17/20 13:59 40 mg DAILY GILBERT Administration Protocol Levetiracetam 500 mg 03/10/20 22:00 03/12/20 10:22 Levetiracetam 500 Mg Tab PO 500 mg BID GILBERT Administration Methylprednisolone Sodium Succinate 40 mg 03/10/20 22:00 03/12/20 06:43 Methylprednisolone Sod Succinate 40 Mg/1 Ml Inj IV 40 mg Q8HR GILBERT Administration Ondansetron HCl 4 mg 03/10/20 12:58 Ondansetron 4 Mg/2 Ml Inj IV Q8H PRN Nausea And Vomiting Sodium Chloride 10 ml 03/10/20 22:00 03/12/20 10:22 Sodium Chloride 0.9% 10 Ml Flush Syringe IV 10 ml BID GILBERT Administration Sodium Chloride 10 ml 03/10/20 12:58 Sodium Chloride 0.9% 10 Ml Flush Syringe IV PRN PRN LINE FLUSH Tramadol HCl 50 mg 03/12/20 12:30 03/12/20 12:25 Tramadol 50 Mg Tab PO 03/12/20 16:00 50 mg ONCE GILBERT Administration
--- NOTE | 2020-03-12 13:52 | Progress Note ---
Assessment and Plan - Patient Problems (1) Syncope Current Visit: Yes Status: Acute Plan to address problem: Patient is undergoing neurological work-up for seizure activity. Cardiac status is stable and asymptomatic, will follow conservatively. Subjective Date of service: 03/12/20 Interval history: Patient is comfortable, no cardiac complaints. Neurological work-up is in progress for seizure activity. monitor car operator shows a normal sinus rhythm, no dysrhythmias. Objective Vital Signs Temp Pulse Resp BP Pulse Ox 03/12/20 08:02 97.9 F 61 18 121/77 97 03/12/20 03:59 97.7 F 58 L 16 102/53 97 03/11/20 23:24 97.4 F L 63 16 121/74 96 03/11/20 15:41 98.3 F 66 18 111/66 98 - Physical Examination General: No Apparent Distress HEENT: Positive: PERRL Neck: Positive: neck supple Cardiac: Positive: Reg Rate and Rhythm Lungs: Positive: Decreased Breath Sounds Neuro: Positive: Grossly Intact Abdomen: Positive: Soft Skin: Positive: Clear Extremities: Absent: edema
[2020-03-12] MEDS: ACETAMINOPHEN 325 MG TAB PO PRN (21:18)
[2020-03-13] MEDS: methylPREDNISolone Sod Succinate 40 MG/1 ML INJ IV SCH (05:34)
[2020-03-13 09:04] VITALS: BP 110/71
[2020-03-13] MEDS: ENOXAPARIN 40 MG/0.4 ML INJ SUB-Q SCH (09:29)
[2020-03-13] MEDS: levETIRAcetam 500 MG TAB PO SCH (09:29)
[2020-03-13] MEDS: ALPRAZolam 0.5 MG TAB PO PRN (09:42)
[2020-03-13] MEDS ORDERED: diazePAM 10 MG/2 ML SYRINGE IV ONE (09:58)
[2020-03-13] MEDS ORDERED: LORazepam 2 MG/ML VIAL IV NR ×2 (10:02→13:15)
[2020-03-13] MEDS: diphenhydrAMINE 50 MG/ML VIAL IV PRN (11:12)
--- NOTE | 2020-03-13 11:18 | Progress Note ---
Assessment and Plan Assessment and plan: 1. Seizure episode Continue Keppra 500 mg twice daily MRI with and without contrast - negative for acute abnormality. EEG still pending Had anaphylaxix to gadolinium on 03/11- will hold contrast studies for now. MRA head and neck without contrast ordered to further evaluate vasculature. Neurology to review Neurochecks every 2 hours 2. Syncope with possible arrhythmia Cardiology evaluation appreciated Follow up with cardiology at discharge for event monitor Orthostatic vitals negative 3. Anaphylaxis to gadolinium Resolved Taper off steroids 4. PTSD Psych recommendations appreciated. 5. 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 DVT prophylaxis-Heparin Full code History Interval history: No further episodes of dizziness noted Episodic vitals negative Plan for MRA head and neck without contrast EEG performed-results still pending Neurology following Hospitalist Physical - Physical exam Narrative exam: VITAL SIGNS: Reviewed. GENERAL: Awake HEAD: No signs of head trauma. EYES: Pupils are equal. Extraocular motions intact. MOUTH: Oropharynx is normal. NECK: No adenopathy, no JVD. CHEST: Chest with diminished breath sounds bilaterally. No wheezes, rales, or rhonchi. CARDIAC: normal S1 and S2, without murmurs, gallops, or rubs. ABDOMEN: Soft, non tender and non distended. No rebound or guarding, and no masses palpated. Bowel Sounds normal. MUSCULOSKELETAL: No edema NEUROLOGIC EXAM: Alert and oriented x3. No focal neurologic deficits SKIN: No obvious lesions - Constitutional Vitals: Temp Pulse Resp BP Pulse Ox 98.9 F 57 L 16 110/71 98 03/13/20 08:16 03/13/20 08:16 03/13/20 10:00 03/13/20 08:16 03/13/20 10:00 HEART Score - HEART Score Troponin: Troponin T < 0.010 ng/mL (0.00-0.029) 03/10/20 09:23 Results - Labs CBC & Chem 7: 03/11/20 04:39 03/11/20 04:39 Labs: Laboratory Last Values WBC 9.1 K/mm3 (4.5-11.0) 03/11/20 04:39 RBC 4.88 M/mm3 (3.65-5.03) 03/11/20 04:39 Hgb 13.8 gm/dl (11.8-15.2) 03/11/20 04:39 Hct 40.3 % (35.5-45.6) 03/11/20 04:39 MCV 83 fl (84-94) L 03/11/20 04:39 MCH 28 pg (28-32) 03/11/20 04:39 MCHC 34 % (32-34) 03/11/20 04:39 RDW 15.3 % (13.2-15.2) H 03/11/20 04:39 Plt Count 220 K/mm3 (140-440) 03/11/20 04:39 Lymph % (Auto) 31.4 % (13.4-35.0) 03/10/20 05:41 [place] % (Auto) 11.8 % (0.0-7.3) H 03/10/20 05:41 Eos % (Auto) 3.6 % (0.0-4.3) 03/10/20 05:41 Baso % (Auto) 1.2 % (0.0-1.8) 03/10/20 05:41 Lymph # (Auto) 1.9 K/mm3 (1.2-5.4) 03/10/20 05:41 [place] # (Auto) 0.7 K/mm3 (0.0-0.8) 03/10/20 05:41 Eos # (Auto) 0.2 K/mm3 (0.0-0.4) 03/10/20 05:41 Baso # (Auto) 0.1 K/mm3 (0.0-0.1) 03/10/20 05:41 Add Manual Diff Complete 03/11/20 04:39 Total Counted 100 03/11/20 04:39 Seg Neutrophils % Lock Expert 03/11/20 04:39 Seg Neuts % (Manual) 95.0 % (40.0-70.0) H 03/11/20 04:39 Lymphocytes % (Manual) 4.0 % (13.4-35.0) L 03/11/20 04:39 Monocytes % (Manual) 1.0 % (0.0-7.3) 03/11/20 04:39 Nucleated RBC % Not Reportable 03/11/20 04:39 Seg Neutrophils # 3.2 K/mm3 (1.8-7.7) 03/10/20 05:41 Seg Neutrophils # Man 8.6 K/mm3 (1.8-7.7) H 03/11/20 04:39 Band Neutrophils # 0.0 K/mm3 03/11/20 04:39 Lymphocytes # (Manual) 0.4 K/mm3 (1.2-5.4) L 03/11/20 04:39 Abs React Lymphs (Man) 0.0 K/mm3 03/11/20 04:39 Monocytes # (Manual) 0.1 K/mm3 (0.0-0.8) 03/11/20 04:39 Eosinophils # (Manual) 0.0 K/mm3 (0.0-0.4) 03/11/20 04:39 Basophils # (Manual) 0.0 K/mm3 (0.0-0.1) 03/11/20 04:39 Metamyelocytes # 0.0 K/mm3 03/11/20 04:39 Myelocytes # 0.0 K/mm3 03/11/20 04:39 Promyelocytes # 0.0 K/mm3 03/11/20 04:39 Blast Cells # 0.0 K/mm3 03/11/20 04:39 WBC Morphology Not Reportable 03/11/20 04:39 Hypersegmented Neuts Not Reportable 03/11/20 04:39 Hyposegmented Neuts Not Reportable 03/11/20 04:39 Hypogranular Neuts Not Reportable 03/11/20 04:39 Smudge Cells Not Reportable 03/11/20 04:39 Toxic Granulation Not Reportable 03/11/20 04:39 Toxic Vacuolation Not Reportable 03/11/20 04:39 Dohle Bodies Not Reportable 03/11/20 04:39 Pelger-Huet Anomaly Not Reportable 03/11/20 04:39 Yue Rods Not Reportable 03/11/20 04:39 Platelet Estimate Consistent w auto 03/11/20 04:39 Clumped Platelets Not Reportable 03/11/20 04:39 Plt Clumps, EDTA Not Reportable 03/11/20 04:39 Large Platelets Not Reportable 03/11/20 04:39 Giant Platelets Not Reportable 03/11/20 04:39 Platelet Satelliting Not Reportable 03/11/20 04:39 Plt Morphology Comment Not Reportable 03/11/20 04:39 RBC Morphology Normal 03/11/20 04:39 Dimorphic RBCs Not Reportable 03/11/20 04:39 Polychromasia Not Reportable 03/11/20 04:39 Hypochromasia Not Reportable 03/11/20 04:39 Poikilocytosis Not Reportable 03/11/20 04:39 Anisocytosis Not Reportable 03/11/20 04:39 Microcytosis Not Reportable 03/11/20 04:39 Macrocytosis Not Reportable 03/11/20 04:39 Spherocytes Not Reportable 03/11/20 04:39 Pappenheimer Bodies Not Reportable 03/11/20 04:39 Sickle Cells Not Reportable 03/11/20 04:39 Target Cells Not Reportable 03/11/20 04:39 Tear Drop Cells Not Reportable 03/11/20 04:39 Ovalocytes Not Reportable 03/11/20 04:39 Helmet Cells Not Reportable 03/11/20 04:39 [place] Bodies Not Reportable 03/11/20 04:39 [place] Rings Not Reportable 03/11/20 04:39 Elijah Cells Not Reportable 03/11/20 04:39 Bite Cells Not Reportable 03/11/20 04:39 Crenated Cell Not Reportable 03/11/20 04:39 Elliptocytes Not Reportable 03/11/20 04:39 Acanthocytes (Spur) Not Reportable 03/11/20 04:39 Rouleaux Not Reportable 03/11/20 04:39 Hemoglobin C Crystals Not Reportable 03/11/20 04:39 Schistocytes Not Reportable 03/11/20 04:39 Malaria parasites Not Reportable 03/11/20 04:39 Francis Bodies Not Reportable 03/11/20 04:39 Hem Pathologist Commnt No 03/11/20 04:39 Sodium 140 mmol/L (137-145) 03/11/20 04:39 Potassium 4.3 mmol/L (3.6-5.0) 03/11/20 04:39 Chloride 106.9 mmol/L (98-107) 03/11/20 04:39 Carbon Dioxide 24 mmol/L (22-30) 03/11/20 04:39 Anion Gap 13 mmol/L 03/11/20 04:39 BUN 16 mg/dL (9-20) 03/11/20 04:39 Creatinine 0.8 mg/dL (0.8-1.3) 03/11/20 04:39 Estimated GFR > 60 ml/min 03/11/20 04:39 BUN/Creatinine Ratio 20 % 03/11/20 04:39 Glucose 141 mg/dL (75-100) H 03/11/20 04:39 Calcium 9.3 mg/dL (8.4-10.2) 03/11/20 04:39 Magnesium 2.10 mg/dL (1.7-2.3) 03/10/20 09:23 Total Bilirubin 0.40 mg/dL (0.1-1.2) 03/11/20 04:39 AST 30 units/L (5-40) 03/11/20 04:39 ALT 15 units/L (7-56) 03/11/20 04:39 Alkaline Phosphatase 83 units/L (35-129) 03/11/20 04:39 Total Creatine Kinase 89 units/L (55-170) 03/10/20 05:41 Troponin T < 0.010 ng/mL (0.00-0.029) 03/10/20 09:23 Total Protein 6.9 g/dL (6.3-8.2) 03/11/20 04:39 Albumin 4.2 g/dL (3.9-5) 03/11/20 04:39 Albumin/Globulin Ratio 1.6 % 03/11/20 04:39 TSH 2.170 mlU/mL (0.270-4.200) 03/10/20 05:41 Urine Color Yellow (Yellow) 03/10/20 Unknown Urine Turbidity Clear (Clear) 03/10/20 Unknown Urine pH 5.0 (5.0-7.0) 03/10/20 Unknown Ur Specific [place] 1.017 (1.003-1.030) 03/10/20 Unknown Urine Protein <15 mg/dl mg/dL (Negative) 03/10/20 Unknown Urine Glucose (UA) Neg mg/dL (Negative) 03/10/20 Unknown Urine Ketones Neg mg/dL (Negative) 03/10/20 Unknown Urine Blood Sm (Negative) 03/10/20 Unknown Urine Nitrite Neg (Negative) 03/10/20 Unknown Urine Bilirubin Neg (Negative) 03/10/20 Unknown Urine Urobilinogen < 2.0 mg/dL (<2.0) 03/10/20 Unknown Ur Leukocyte Esterase Neg (Negative) 03/10/20 Unknown Urine WBC (Auto) 1.0 /HPF (0.0-6.0) 03/10/20 Unknown Urine RBC (Auto) 2.0 /HPF (0.0-6.0) 03/10/20 Unknown Urine Mucus Few /HPF 03/10/20 Unknown Urine Opiates Screen Presumptive negative 03/10/20 Unknown Urine Methadone Screen Presumptive negative 03/10/20 Unknown Ur Barbiturates Screen Presumptive positive 03/10/20 Unknown Ur Phencyclidine Scrn Presumptive negative 03/10/20 Unknown Ur Amphetamines Screen Presumptive negative 03/10/20 Unknown U Benzodiazepines Scrn Presumptive negative 03/10/20 Unknown Urine Cocaine Screen Presumptive positive 03/10/20 Unknown U Marijuana (THC) Screen Presumptive negative 03/10/20 Unknown Drugs of Abuse Note Disclamer 03/10/20 Unknown Plasma/Serum Alcohol 0.02 % (0-0.07) 03/10/20 05:41 - Diagnostic Impressions Diagnostic Impressions: Echocardiogram 03/10/20 12:56 Transthoracic Echocardiogram Indication: Seizure; HOCM BP: 91/54 HR: 65 Conclusions *The left ventricular chamber size is normal. *There is no left ventricular hypertrophy. *Global left ventricular wall motion and contractility are within normal limits. *The left atrial chamber size is normal. *The right ventricular systolic pressure is calculated at 20 mmHg. Findings Left Ventricle: The left ventricular chamber size is normal. There is no left ventricular hypertrophy. Global left ventricular wall motion and contractility are within normal limits. Global left ventricular systolic function is normal. The estimated ejection fraction is 60-65%. Abnormal left ventricular diastolic filling is observed, consistent with impaired relaxation. Left Atrium: The left atrial chamber size is normal. Right Ventricle: The right ventricular cavity size is normal. The right ventricular global systolic function is normal. Right Atrium: The right atrial cavity size is normal. Aortic Valve: There is no evidence of aortic valve thickening. There is no evidence of aortic regurgitation. Mitral Valve: The mitral valve leaflets do not appear thickened. There is trace of mitral regurgitation. Tricuspid Valve: The tricuspid valve leaflets are normal. There is trace tricuspid regurgitation. The right ventricular systolic pressure is calculated at 20 mmHg. Pulmonic Valve: There is no evidence of pulmonic valve thickening. There is trace pulmonic regurgitation. Pericardium: There is no pericardial effusion. Aorta: The aorta appears normal. Venous: The inferior vena cava appears normal in size. Measurements Chambers 2D Name Value Normal Range IVSd (2D) 1.06 cm (0.6 - 1.1) LVPWd (2D) 0.97 cm (0.6 - 1.1) LVIDd (2D) 4.01 cm (3.7 - 5.6) LVIDs (2D) 2.71 cm (2 - 3.8) LV FS (2D) 32.48 % - EF Teichholz (2D) 61.37 % - Ao root diameter (2D) 3.26 cm (2 - 3.7) Volumes/Mass Name Value Normal Range LA ESV SP 4CH (A/L) 55.68 ml - LA ESV SP 2CH (A/L) 44.57 ml - LA ESV BP (A/L) 52.82 ml - LA ESV BP (A/L) index 26.81 ml/m2 - LA ESV SP 4CH (MOD) 52.83 ml - LA ESV SP 2CH (MOD) 41.58 ml - LA ESV BP (MOD) 49.09 ml - LA ESV BP (MOD) index 24.92 ml/m2 - Diastolic/Systolic Function Name Value Normal Range MV E-wave Vmax 0.91 m/sec - MV deceleration time 249.63 msec - MV A-wave Vmax 0.87 m/sec - MV E:A ratio 1.05 ratio - Aortic Valve Name Value Normal Range AV Vmax 1.83 m/sec - AV VTI 39.57 cm - AV peak gradient 13.46 mmHg - AV mean gradient 6.78 mmHg - LVOT diameter 2.1 cm - LVOT Vmax 1.52 m/sec - LVOT VTI 34.72 cm - LVOT peak gradient 9.28 mmHg - LVOT mean gradient 5.18 mmHg - SV LVOT 120.22 ml - MATTY (continuity Vmax) 2.88 cm2 - MATTY (continuity VTI) 3.04 cm2 - Ascending Ao 3.04 cm - Tricuspid Valve Name Value Normal Range TR Vmax 2.07 m/sec - TR peak gradient 17.16 mmHg - RAP 3 mmHg - RVSP 20 mmHg - IVC diameter 1.8 cm (1.2 - 2.3) Pulmonic Valve/Qp:Qs Name Value Normal Range PV Vmax 0.86 m/sec - PV peak gradient 2.97 mmHg - IL end-diastolic Vmax 0.35 m/sec - PV acceleration time 171.27 msec - [place]/IV: Voiding Method Toilet IV Catheter Type [Left Peripheral IV Antecubital] Active Medications - Current Medications Current Medications: Generic Name Dose Route Start Last Admin Trade Name Freq PRN Reason Stop Dose Admin Acetaminophen 650 mg 03/10/20 12:58 03/12/20 21:18 Acetaminophen 325 Mg Tab PO 650 mg Q4H PRN Administration Pain MILD(1-3)/Fever >100.5/BERGMAN Alprazolam 0.5 mg 03/11/20 16:30 03/13/20 09:42 Alprazolam 0.5 Mg Tab PO 0.5 mg Q8H PRN Administration Anxiety Diphenhydramine HCl 50 mg 03/10/20 18:48 03/12/20 21:18 Diphenhydramine 50 Mg/Ml Vial IV 50 mg Q8HR PRN Administration Itching Enoxaparin Sodium 40 mg 03/10/20 14:00 03/13/20 09:29 Enoxaparin 40 Mg/0.4 Ml Inj SUB-Q 03/17/20 13:59 40 mg DAILY GILBERT Administration Protocol Levetiracetam 500 mg 03/10/20 22:00 03/13/20 09:29 Levetiracetam 500 Mg Tab PO 500 mg BID GILBERT Administration Methylprednisolone Sodium Succinate 40 mg 03/10/20 22:00 03/13/20 05:34 Methylprednisolone Sod Succinate 40 Mg/1 Ml Inj IV 40 mg Q8HR GILBERT Administration Ondansetron HCl 4 mg 03/10/20 12:58 Ondansetron 4 Mg/2 Ml Inj IV Q8H PRN Nausea And Vomiting Sodium Chloride 10 ml 03/10/20 22:00 03/13/20 09:29 Sodium Chloride 0.9% 10 Ml Flush Syringe IV 10 ml BID GILBERT Administration Sodium Chloride 10 ml 03/10/20 12:58 Sodium Chloride 0.9% 10 Ml Flush Syringe IV PRN PRN LINE FLUSH
--- NOTE | 2020-03-13 13:52 | Progress Note ---
Assessment and Plan - Patient Problems (1) Syncope Current Visit: Yes Status: Acute Plan to address problem: Patient is undergoing neurological work-up for seizure activity. Cardiac status is stable and asymptomatic, will follow conservatively. Subjective Date of service: 03/13/20 Interval history: Patient is comfortable, no cardiac complaints. Neurological work-up is in progress for seizure activity. 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 Objective Vital Signs Temp Pulse Resp BP Pulse Ox 03/13/20 10:00 16 98 03/13/20 08:16 98.9 F 57 L 16 110/71 94 03/13/20 04:15 97.6 F 56 L 17 110/70 94 03/13/20 00:23 97.7 F 60 18 112/72 92 03/12/20 20:29 98.7 F 68 18 121/78 97 03/12/20 16:29 98.4 F 73 18 124/71 95 - Physical Examination General: No Apparent Distress HEENT: Positive: PERRL Neck: Positive: neck supple Cardiac: Positive: Reg Rate and Rhythm Lungs: Positive: Decreased Breath Sounds Neuro: Positive: Grossly Intact Abdomen: Positive: Soft Skin: Positive: Clear Extremities: Absent: edema
--- NOTE | 2020-03-13 16:12 | Magnetic Resonance Report ---
MR MRA/MRV neck wo con INDICATION / CLINICAL INFORMATION: 49 years Male; Evaluate for any CVA or vascular malformation. TECHNIQUE: 2-D time of flight performed prior to contrast. NASCET criteria used for stenosis evaluati on. Motion artifact COMPARISON: None available. FINDINGS: ARCH: Aortic arch and proximal great vessels are not well visualized on this exam. However, normal ao rtic arch anatomy is suggested. CAROTID ARTERIES: The visualized common and internal carotid arteries are widely patent. VERTEBRAL ARTERIES: Codominant vertebral system seen. No significant stenosis appreciated. IMPRESSION: No significant stenosis appreciated on this unenhanced MRA of the neck. Signer Name: Prashant Vital MD, III Signed: 03/13/2020 4:07 PM Workstation Name: [facility] CENTERunbound technologiesNEW BRIDGE MEDICAL [email or web address]
--- NOTE | 2020-03-13 16:18 | Magnetic Resonance Report ---
. MR MRA/MRV head wo con INDICATION / CLINICAL INFORMATION: 49 years Male; Evaluate for any CVA or vascular malformation. TECHNIQUE: 3-D time of flight. NASCET type criteria used to evaluate stenoses. Some motion artifact present. COMPARISON: None available. FINDINGS: INTERNAL CAROTID ARTERIES: No significant narrowing appreciated. VERTEBROBASILAR SYSTEM: No significant narrowing appreciated. DISTAL BRANCHES: Visualized portions of the distal branches of the anterior, middle, and posterior ce rebral arteries are fairly symmetric in appearance and number. There may be a few areas of mild, focal narrowing in the MCA trifurcation region on the left. ANEURYSM: None identified. Note, there is a small infundibulum associated with the origin of the left superior cerebellar artery - of no clinical significance. IMPRESSION: No dominant stenosis on this MRA of the brain. Signer Name: Prashant Vital MD, III Signed: 03/13/2020 4:13 PM Workstation Name: [facility] MED[facility] CENTERCantab BiopharmaceuticalsMICHAEL [id number]
== END 2020-03-13 15:30 | disposition left against medical advice (07) | DRG 101 ==
LOC: ED 23:55 → 4A 03-10 12:58 → OBSVTOIN 03-11 15:07
PROVIDERS: ADMIT Internal Medicine; ATTEND Internal Medicine
DX: R56.9 Unspecified convulsions (principal); T88.6XXA Anaphylactic reaction due to adverse effect of correct drug or medicament properly administered, initial encounter; R55 Syncope and collapse; T50.995A Adverse effect of other drugs, medicaments and biological substances, initial encounter; I49.9 Cardiac arrhythmia, unspecified; F43.10 Post-traumatic stress disorder, unspecified; K21.9 Gastro-esophageal reflux disease without esophagitis; Z53.29 Procedure and treatment not carried out because of patient's decision for other reasons; F31.9 Bipolar disorder, unspecified; F17.200 Nicotine dependence, unspecified, uncomplicated; Z88.0 Allergy status to penicillin; Z88.8 Allergy status to other drugs, medicaments and biological substances; Z91.041 Radiographic dye allergy status
CPT/HCPCS: 36415; 70450; 70544; 70547; 70553; 71045; 74176; 80053; 80307; 80320; 81001; 82550; 83735; 84443; 84484; 85007; 85025; 93005; 93306; 95819; 96361; 96374; 99406; G0378; A9577; G0480; J0171; J1200; J1650; J1953; J2060; J2270; J2405; J2920; J2930; J7030

== ENCOUNTER 2020-05-26 10:19 | Emergency (ER) | payer MEDICARE ==
--- NOTE | 2020-05-26 10:23 | Emergency Department Report ---
Upper Extremity - HPI Chief Complaint: Extremity Injury, Upper Stated Complaint: THUMB INJURY Time Seen by Provider: 05/26/20 10:22 Upper Extremity: Right Thumb Occurred When: 4 Days Mechanism: Other (no injury ) Symptoms: Yes Pain with Movement, Yes Limited Range of Movement, No Deformity, No Numbness, No Weakness, No Swelling, No Bruising/Ecchymosis, No Laceration or Abrasion Other History: 49-year-old male presents to the ER today with complaints of right thumb pain mainly at the level of the first MCP joint. Onset 4 days ago. Denies any particular injury or strenuous activity. Patient reports pain movement of the thumb. He states that when he flexes his IP joints, it gets stuck and he has to push it back in place. He denies any prior injury to his arm or hand. He reports no swelling or bruising or erythema or any other symptoms at this time. He is right-hand dominant. ED Review of Systems ROS: Stated complaint: THUMB INJURY Other details as noted in HPI Comment: All other systems reviewed and negative Constitutional: denies: chills, fever Eyes: denies: eye pain, eye discharge, vision change ENT: denies: ear pain, throat pain Respiratory: denies: cough, shortness of breath, wheezing Cardiovascular: denies: chest pain, palpitations Gastrointestinal: denies: abdominal pain, nausea, diarrhea Genitourinary: denies: urgency, dysuria Musculoskeletal: arthralgia. denies: back pain, joint swelling Neurological: denies: headache, weakness, paresthesias Psychiatric: denies: anxiety, depression ED Past Medical Hx - Past Medical History Previous Medical History?: Yes Hx Hypertension: No Hx Congestive Heart Failure: No Hx Diabetes: No Hx GERD: Yes Hx Liver Disease: No Hx Renal Disease: No Hx Seizures: Yes Hx Psychiatric Treatment: Yes (PTSD (on disability for this),major depression, bipolar.) Hx Asthma: No Hx COPD: No Additional medical history: pleurisy - Surgical History Past Surgical History?: Yes Additional Surgical History: groin sx ?, gallbladder removed - Social History Smoking Status: Current Every Day Smoker Substance Use Type: None - Medications Home Medications: Home Medications Medication Instructions Recorded Confirmed Last Taken Type propranoloL [Inderal] 10 mg PO QDAY 12/17/18 03/12/20 Unknown History buPROPion [Wellbutrin] 75 mg PO QDAY #30 tablet 12/21/18 03/12/20 Unknown Rx Pantoprazole [Protonix TAB] 40 mg PO QDAY #30 tablet 04/26/19 03/12/20 Unknown Rx Sertraline [Zoloft] 100 mg PO QDAY 03/12/20 03/12/20 Unknown History Ibuprofen [Motrin] 800 mg PO Q8HR PRN #30 tablet 05/26/20 Unknown Rx Upper Extremity Exam - Exam General: Vital signs noted. No distress. Alert and acting appropriately. Head and Torso: No HEENT Abnormality, No Chest/Lungs Abnormality Hand: Yes Digit Tenderness (moderate at right first MCP joint), Yes Normal ROM in Digit(s) (ROM Of first right MCP joint limited due to pain ), Yes Digit(s) Deformity, No Hand Tenderness, No Hand Deformity CMS Exam: Yes Normal Distal Pulses, Yes Normal Capillary Refill, Yes Normal Distal Sensation, No Broken Skin ED Medical Decision Making - Radiology Data Radiology results: report reviewed Patient: PA MUÑIZ MR#: [id number] : 1970 Acct:[id number] Age/Sex: 49 / M ADM Date: 05/26/20 Loc: ED Attending Dr: Ordering Physician: KERMIT RESENDIZ Date of Service: 05/26/20 Procedure(s): XR hand 3+V RT Accession Number(s): [id number] cc: KERMIT RESENDIZ Fluoro Time In Minutes: RIGHT HAND 3 VIEWS INDICATION: right thumb pain. COMPARISON: None. IMPRESSION: Normal bone mineralization. No acute osseous abnormality is appreciated. Mild osteoarthritic changes are identified first metacarpophalangeal joint. There appears to be mild subluxation at the first metacarpophalangeal joint on the lateral image. The remaining joint spaces are in unremarkable. Signer Name: Ovidio Guajardo Jr, MD Signed: 05/26/2020 11:24 AM Workstation Name: [id number] Transcribed By: TTR Dictated By: OVIDIO GUAJARDO JR, MD Electronically Authenticated By: OVIDIO GUAJARDO JR, MD Signed Date/Time: 05/26/20 1124 DD/ 1119 TD/TT: Critical care attestation.: If time is entered above; I have spent that time in minutes in the direct care of this critically ill patient, excluding procedure time. ED Disposition Clinical Impression: Osteoarthritis of right thumb, Tendinitis of thumb Disposition: TO HOME OR SELFCARE Is pt being admited?: No Does the pt Need Aspirin: No Condition: Stable Instructions: Osteoarthritis, Tendinitis Additional Instructions: It is important that you follow-up with global mobility specialist as discussed. Use the thumb spica splint as instructed. Take the Motrin as prescribed. Return to the ER if your symptoms changes or worsens in any way. Prescriptions: Ibuprofen [Motrin] 800 mg PO Q8HR PRN #30 tablet PRN Reason: pain Referrals: KARMA CESAR MD [Primary Care Provider] - 3-5 Days Time of Disposition: 11:50
[2020-05-26] MEDS ORDERED: IBUPROFEN 600 MG TAB PO ONE (10:27)
[2020-05-26 10:36] VITALS: BP 123/73
--- NOTE | 2020-05-26 11:29 | XRay Report ---
RIGHT HAND 3 VIEWS INDICATION: right thumb pain. COMPARISON: None. IMPRESSION: Normal bone mineralization. No acute osseous abnormality is appreciated. Mild osteoarth ritic changes are identified first metacarpophalangeal joint. There appears to be mild subluxation at the first metacarpophalangeal joint on the lateral image. The remaining joint spaces are in unremark able. Signer Name: Ovidio Guajardo Jr, MD Signed: 05/26/2020 11:24 AM Workstation Name: [id number]
== END 2020-05-26 12:13 | disposition home or self-care (01) ==
LOC: ED 10:19
DX: M19.041 Primary osteoarthritis, right hand (principal); M77.8 Other enthesopathies, not elsewhere classified; K21.9 Gastro-esophageal reflux disease without esophagitis; R56.9 Unspecified convulsions; F17.200 Nicotine dependence, unspecified, uncomplicated; Z98.890 Other specified postprocedural states; Z79.1 Long term (current) use of non-steroidal anti-inflammatories (NSAID); Z79.899 Other long term (current) drug therapy; Z88.8 Allergy status to other drugs, medicaments and biological substances

== ENCOUNTER 2020-08-29 00:43 | Emergency (ER) | payer MEDICARE | END 2020-08-29 00:48 | disposition left against medical advice (07) | LOC: ED 00:43 | DX: R10.9 Unspecified abdominal pain (principal); Z53.21 Procedure and treatment not carried out due to patient leaving prior to being seen by health care provider ==

== ENCOUNTER 2020-09-18 00:57 | Emergency (ER) | payer MEDICARE ==
[2020-09-18 01:47] LABS: Basophils # (Auto) 0.1 K/mm3 (0.0-0.1); Basophils % (Auto) 1.4 % (0.0-1.8); Eosinophils # (Auto) 0.5 K/mm3 (0.0-0.4); Lymphocytes # (Auto) 2.5 K/mm3 (1.2-5.4); Mean Corpuscular HGB Conc 36 % (32-34); Mean Corpuscular Volume 84 fl (84-94); Monocytes # (Auto) 0.8 K/mm3 (0.0-0.8); Monocytes % (Auto) 8.6 % (0.0-7.3); Platelet Count 258 K/mm3 (140-440); Red Blood Count 4.85 M/mm3 (3.65-5.03)
[2020-09-18 01:51] LABS: Hematocrit 40.8 % (35.5-45.6); Hemoglobin 14.6 gm/dl (11.8-15.2)
[2020-09-18 02:06] LABS: Alanine Aminotransferase 39 units/L (7-56); Albumin 4.3 g/dL (3.9-5); BUN/Creatinine Ratio 16; Blood Urea Nitrogen 13 mg/dL (9-20); Calcium 8.5 mg/dL (8.4-10.2); Hemolysis Index 1
[2020-09-18] MEDS ORDERED: ONDANSETRON 4 MG/2 ML INJ IV ONE (03:19)
[2020-09-18] MEDS ORDERED: HYDROmorphone 1 MG/1 ML INJ IV ONE ×2 (03:19→04:55)
[2020-09-18] MEDS ORDERED: SODIUM CHLORIDE 0.9% 1000 ML 1,000 ML IV ONE (03:19)
--- NOTE | 2020-09-18 03:21 | Emergency Department Report ---
ED Abdominal Pain HPI - General Chief Complaint: Abdominal Pain Stated Complaint: ABD PAIN/EMESIS PUI?: No Time Seen by Provider: 09/18/20 03:15 Source: patient Mode of arrival: Ambulatory Limitations: No Limitations - History of Present Illness Initial Comments: Patient is a 50-year-old male presents emergency room with complaints of abdominal pain. Patient dates the abdominal pain going on for 3 days. Patient states abdominal pain is worsened. Patient also complains of nausea vomiting patient states the abdominal pain is generalized but mostly to the lower abdomen radiating to the right flank. Patient denies dysuria. Patient denies fever and chills. Patient denies chest pain or shortness of breath. Patient denies blood in the vomitus. Patient has not been able to hold anything down due to the vomiting. Patient also complains of syncopal episode. Patient states he was in so much pain that he passed out and hit his head. Patient states he sustained an abrasion to his forehead. Patient denies headache. Patient denies seizure activity. Patient states he woke up and was not sure how he got onto the nitin und. Patient states his loss consciousness was brief. Patient denies neck injury. Patient denies neck pain. Patient denies other injury. Patient denies other trauma. Patient denies recent travel. Patient denies recent international travel. Patient denies exposure to the novel coronavirus. Patient denies sick contacts. Patient denies fever and chills. Patient denies cough. Patient denies diarrhea. Patient denies coming in contact with anybody with symptoms of the novel coronavirus. MD Complaint: abdominal pain -: Sudden Location: diffuse Radiation: R flank Severity: severe Severity scale (0 -10): 10 Quality: stabbing, sharp Consistency: constant Improves With: rest Worsens With: vomiting, movement Associated Symptoms: nausea, vomiting, syncope. denies: diarrhea, fever, chills, constipation, dysuria, hematemesis, hematochezia, melena, hematuria, anorexia - Related Data Home Medications Medication Instructions Recorded Confirmed Last Taken propranoloL [Inderal] 10 mg PO QDAY 12/17/18 03/12/20 Unknown Sertraline [Zoloft] 100 mg PO QDAY 03/12/20 03/12/20 Unknown Previous Rx's Medication Instructions Recorded Last Taken Type buPROPion [Wellbutrin] 75 mg PO QDAY #30 tablet 12/21/18 Unknown Rx Pantoprazole [Protonix TAB] 40 mg PO QDAY #30 tablet 04/26/19 Unknown Rx Ibuprofen [Motrin] 800 mg PO Q8HR PRN #30 tablet 05/26/20 Unknown Rx Acetaminophen/Codeine [Tylenol 1 tab PO Q6H PRN #12 tab 09/18/20 Unknown Rx /Codeine # 3 tab] Ondansetron [Zofran Odt] 4 mg PO Q6HR PRN #15 tab.rapdis 09/18/20 Unknown Rx Allergies Allergy/AdvReac Type Severity Reaction Status Date / Time aripiprazole [From Abilify] Allergy Unknown Verified 09/06/17 12:14 fluphenazine enanthate Allergy Unknown Verified 03/11/20 10:12 [From Prolixin] fluphenazine HCl Allergy Unknown Verified 09/06/17 12:14 [From Prolixin] Gadolinium-Containing Allergy Rash Verified 03/11/20 10:06 Contrast Medi haloperidol [From Haldol] Allergy Unknown Verified 09/06/17 12:14 haloperidol lactate Allergy Unknown Verified 09/06/17 12:14 [From Haldol] metoclopramide [From Reglan] Allergy Vomiting Verified 12/15/18 08:27 olanzapine [From Zyprexa] Allergy Unknown Verified 09/06/17 12:14 Penicillins Allergy Unknown Verified 09/06/17 12:14 ziprasidone HCl [From Geodon] Allergy Unknown Verified 09/06/17 12:14 ziprasidone mesylate Allergy Unknown Verified 09/06/17 12:14 [From Geodon] IV contrast Allergy Severe Rash Uncoded 03/10/20 15:43 ED Review of Systems ROS: Stated complaint: ABD PAIN/EMESIS Other details as noted in HPI ED Past Medical Hx - Past Medical History Previous Medical History?: Yes Hx Hypertension: No Hx Congestive Heart Failure: No Hx Diabetes: No Hx GERD: Yes Hx Liver Disease: No Hx Renal Disease: No Hx Seizures: Yes Hx Psychiatric Treatment: Yes (PTSD (on disability for this),major depression, bipolar.) Hx Asthma: No Hx COPD: No Additional medical history: pleurisy - Surgical History Past Surgical History?: Yes Additional Surgical History: groin sx ?, gallbladder removed - Family History Family history: no significant - Social History Smoking Status: Current Every Day Smoker Substance Use Type: None - Medications Home Medications: Home Medications Medication Instructions Recorded Confirmed Last Taken Type propranoloL [Inderal] 10 mg PO QDAY 12/17/18 03/12/20 Unknown History buPROPion [Wellbutrin] 75 mg PO QDAY #30 tablet 12/21/18 03/12/20 Unknown Rx Pantoprazole [Protonix TAB] 40 mg PO QDAY #30 tablet 04/26/19 03/12/20 Unknown Rx Sertraline [Zoloft] 100 mg PO QDAY 03/12/20 03/12/20 Unknown History Ibuprofen [Motrin] 800 mg PO Q8HR PRN #30 tablet 05/26/20 Unknown Rx Acetaminophen/Codeine [Tylenol 1 tab PO Q6H PRN #12 tab 09/18/20 Unknown Rx /Codeine # 3 tab] Ondansetron [Zofran Odt] 4 mg PO Q6HR PRN #15 tab.rapdis 09/18/20 Unknown Rx ED Physical Exam - General Limitations: No Limitations General appearance: alert, in no apparent distress - Head Head exam: Present: atraumatic, normocephalic - Eye Eye exam: Present: normal appearance - ENT ENT exam: Present: mucous membranes moist - Neck Neck exam: Present: normal inspection - Respiratory Respiratory exam: Present: normal lung sounds bilaterally. Absent: respiratory distress, wheezes, rales - Cardiovascular Cardiovascular Exam: Present: regular rate, normal rhythm. Absent: systolic murmur, diastolic murmur, rubs, gallop - GI/Abdominal GI/Abdominal exam: Present: soft, tenderness, normal bowel sounds - Rectal Rectal exam: Present: deferred - Extremities Exam Extremities exam: Present: normal inspection - Back Exam Back exam: Present: normal inspection - Neurological Exam Neurological exam: Present: alert, oriented X3 - Psychiatric Psychiatric exam: Present: normal affect, normal mood - Skin Skin exam: Present: warm, dry, intact, normal color. Absent: rash ED Course Vital Signs 09/18/20 01:02 Temperature 98.6 F Pulse Rate 72 Respiratory 18 Rate Blood Pressure 159/97 O2 Sat by Pulse 97 Oximetry - Reevaluation(s) Reevaluation #1: Patient is complaining of severe abdominal pain. Patient states he would like another dose of pain medication. 09/18/20 05:08 Reevaluation #2: Patient states is resolved. Patient is states his pain is a little bit better. I discussed all results and clinical findings with patient. I discussed plan of care with patient. Patient agrees with plan of care. Patient is stable for discharge. Patient will be discharged home. Patient given discharge instructions. Patient voiced understanding of discharge instructions. 09/18/20 05:40 ED Medical Decision Making - Lab Data Result diagrams: 09/18/20 01:12 09/18/20 01:12 - Radiology Data Radiology results: report reviewed CT head/brain wo con INDICATION: Syncope. TECHNIQUE: Routine CT head. All CT scans at this location are performed using CT dose reduction for ALARA by means of automated exposure control. COMPARISON: 03/13/2020 MRI brain FINDINGS: Intracranial: Cason-white matter differentiation is maintained. No intracranial hemorrhage. No extra axial collection. No hydrocephalus. No herniation. Sinuses: Paranasal sinuses and mastoid air cells are essentially clear. Orbits: Globes are intact. Calvarium: No acute fracture. IMPRESSION: 1. No acute intracranial abnormality. CT abdomen pelvis wo con INDICATION: Patient complains of abdominal pain. COMPARISON: 03/10/2020 TECHNIQUE: Abdominal and pelvic CT exam performed. All CT scans at this location are performed using CT dose reduction for ALARA by means of automated exposure control. FINDINGS: CT ABDOMEN and PELVIS: Lung Bases: No significant abnormality. Liver: No significant abnormality. Biliary: Gallbladder is surgically absent. Spleen: No significant abnormality. Pancreas: No significant abnormality. Adrenals: No significant abnormality. Kidneys: No significant abnormality. Lymphatics: No lymphadenopathy. Vasculature: No significant abnormality. Bowel: Diverticulosis without colonic wall thickening or pericolonic stranding. Normal appendix. Pelvis: No significant abnormality. Osseous Structures: No aggressive osseous lesion. Additional Findings: None IMPRESSION: 1. No acute abnormality of the abdomen or pelvis. - Medical Decision Making Patient is a 50-year-old presents emergency room with complaints of abdominal pain and syncope. He states he had a syncopal episode due to the pain. Patient had labs done which were essentially unremarkable. Patient had a CT scan of the abdomen throughout intra-abdominal problem. Patient had a CT of the head for syncope. Patient CT of the head and abdomen were negative for acute findings. Patient given IV fluids, antiemetics and pain meds. Patient responded well to treatment. Patient's studies are all normal and the patient does not require further emergency medical services. Patient not require inpatient services. Patient is stable for discharge. Patient given discharge instructions. Patient phones. Patient given discharge medications. - Differential Diagnosis Gastroenteritis, reflux, abdominal pain, nausea, vomiting Critical care attestation.: If time is entered above; I have spent that time in minutes in the direct care of this critically ill patient, excluding procedure time. ED Disposition Clinical Impression: Dehydration, Gastroenteritis Nausea & vomiting Qualifiers: Vomiting type: unspecified Vomiting Intractability: non-intractable Qualified Code(s): R11.2 - Nausea with vomiting, unspecified Abdominal pain Qualifiers: Abdominal location: lower abdomen, unspecified Qualified Code(s): R10.30 - Lower abdominal pain, unspecified Syncope Qualifiers: Syncope type: unspecified Qualified Code(s): R55 - Syncope and collapse Disposition: DC-01 TO HOME OR SELFCARE Is pt being admited?: No Does the pt Need Aspirin: No Condition: Stable Instructions: Viral Gastroenteritis, Adult, [id number], Food Choices to Help Relieve Diarrhea, Adult, Nausea and Vomiting, Adult, Syncope, [id number], Syncope (ED) Additional Instructions: Patient to follow-up with primary care in 2 to 3 days. Patient to follow-up with gastroenterology, neurology and cardiology in 2 to 3 days. Patient to rest. Patient to increase water. Patient to avoid strenuous exercise or heavy lifting until cleared by neurology, cardiology and primary care. Patient to eat a brat diet. Patient to eat a reflux diet. Patient to take Tylenol or ibuprofen as needed for pain. Patient to take meds as directed. Patient to return to the ER if condition worsens, changes or new symptoms arise. Prescriptions: Acetaminophen/Codeine [Tylenol /Codeine # 3 tab] 1 tab PO Q6H PRN #12 tab PRN Reason: Pain , Severe (7-10) Ondansetron [Zofran Odt] 4 mg PO Q6HR PRN #15 tab.rapdis PRN Reason: Nausea And Vomiting Referrals: ELIOT KENT MD [Staff Physician] - 2-3 Days DANETTE QUINN MD [Staff Physician] - 2-3 Days ZUHAIR BETH MD [Staff Physician] - 2-3 Days TING LOPEZ MD [Staff Physician] - 2-3 Days Time of Disposition: 05:39
--- NOTE | 2020-09-18 04:47 | Cat Scan Report ---
CT head/brain wo con INDICATION: Syncope. TECHNIQUE: Routine CT head. All CT scans at this location are performed using CT dose reduction for A JEANNE by means of automated exposure control. COMPARISON: 03/13/2020 MRI brain FINDINGS: Intracranial: Cason-white matter differentiation is maintained. No intracranial hemorrhage. No extra a xial collection. No hydrocephalus. No herniation. Sinuses: Paranasal sinuses and mastoid air cells are essentially clear. Orbits: Globes are intact. Calvarium: No acute fracture. IMPRESSION: 1. No acute intracranial abnormality. Signer Name: Marcus Giron MD Signed: 09/18/2020 4:42 AM Workstation Name: [id number]
--- NOTE | 2020-09-18 04:49 | Cat Scan Report ---
CT abdomen pelvis wo con INDICATION: Patient complains of abdominal pain. COMPARISON: 03/10/2020 TECHNIQUE: Abdominal and pelvic CT exam performed. All CT scans at this location are performed using CT dose reduction for ALARA by means of automated exposure control. FINDINGS: CT ABDOMEN and PELVIS: Lung Bases: No significant abnormality. Liver: No significant abnormality. Biliary: Gallbladder is surgically absent. Spleen: No significant abnormality. Pancreas: No significant abnormality. Adrenals: No significant abnormality. Kidneys: No significant abnormality. Lymphatics: No lymphadenopathy. Vasculature: No significant abnormality. Bowel: Diverticulosis without colonic wall thickening or pericolonic stranding. Normal appendix. Pelvis: No significant abnormality. Osseous Structures: No aggressive osseous lesion. Additional Findings: None IMPRESSION: 1. No acute abnormality of the abdomen or pelvis. Signer Name: Marcus Giron MD Signed: 09/18/2020 4:44 AM Workstation Name: [id number]
[2020-09-18 06:38] VITALS: BP 147/85
== END 2020-09-18 07:24 | disposition home or self-care (01) ==
LOC: ED 00:57
DX: K52.9 Noninfective gastroenteritis and colitis, unspecified (principal); E86.0 Dehydration; R11.2 Nausea with vomiting, unspecified; R55 Syncope and collapse; R10.84 Generalized abdominal pain; K21.9 Gastro-esophageal reflux disease without esophagitis; F17.200 Nicotine dependence, unspecified, uncomplicated; Z98.890 Other specified postprocedural states; Z79.1 Long term (current) use of non-steroidal anti-inflammatories (NSAID); Z79.899 Other long term (current) drug therapy; Z88.8 Allergy status to other drugs, medicaments and biological substances
CPT/HCPCS: 36415; 70450; 74176; 80053; 85025; 96361; 96374; 96375; 96376; 99284; J1170; J2405

== ENCOUNTER 2020-09-20 18:22 | Emergency (ER) | payer MEDICARE ==
[2020-09-20] MEDS ORDERED: LORazepam 2 MG/ML VIAL IV ONE (18:38)
--- NOTE | 2020-09-20 18:52 | Emergency Department Report ---
ED General Adult HPI - General Chief complaint: Psych Stated complaint: POSSIBLE DYSTONIC REACTION Time Seen by Provider: 09/20/20 18:38 Source: patient, EMS Mode of arrival: Stretcher Limitations: Physical Limitation - History of Present Illness Initial comments: 50-year-old male, history of bipolar disorder, currently at [facility] for treatment, not on a 1013, presents to ED for dystonic reaction. Patient was started on Trileptal on yesterday. He is now experiencing uncontrollable movements of the tongue, and contraction of his neck. Patient states this happened previously with Trileptal. Patient was given Benadryl by EMS. He states there was some initial improvement of his symptoms, but feels as if it is coming back. Patient states [email or web address] never worked in the past. Patient requested Ativan for symptom relief. -: This evening Location: head, face, neck Improves with: medication Worsens with: medication Associated Symptoms: denies other symptoms Treatments Prior to Arrival: other (Benadryl 50 mg) - Related Data Home Medications Medication Instructions Recorded Confirmed Last Taken propranoloL [Inderal] 10 mg PO QDAY 12/17/18 03/12/20 Unknown Sertraline [Zoloft] 100 mg PO QDAY 03/12/20 03/12/20 Unknown Previous Rx's Medication Instructions Recorded Last Taken Type buPROPion [Wellbutrin] 75 mg PO QDAY #30 tablet 12/21/18 Unknown Rx Pantoprazole [Protonix TAB] 40 mg PO QDAY #30 tablet 04/26/19 Unknown Rx Ibuprofen [Motrin] 800 mg PO Q8HR PRN #30 tablet 05/26/20 Unknown Rx Acetaminophen/Codeine [Tylenol 1 tab PO Q6H PRN #12 tab 09/18/20 Unknown Rx /Codeine # 3 tab] Ondansetron [Zofran Odt] 4 mg PO Q6HR PRN #15 tab.rapdis 09/18/20 Unknown Rx Allergies Allergy/AdvReac Type Severity Reaction Status Date / Time aripiprazole [From Abilify] Allergy Unknown Verified 09/06/17 12:14 fluphenazine enanthate Allergy Unknown Verified 03/11/20 10:12 [From Prolixin] fluphenazine HCl Allergy Unknown Verified 09/06/17 12:14 [From Prolixin] Gadolinium-Containing Allergy Rash Verified 03/11/20 10:06 Contrast Medi haloperidol [From Haldol] Allergy Unknown Verified 09/06/17 12:14 haloperidol lactate Allergy Unknown Verified 09/06/17 12:14 [From Haldol] metoclopramide [From Reglan] Allergy Vomiting Verified 12/15/18 08:27 olanzapine [From Zyprexa] Allergy Unknown Verified 09/06/17 12:14 Penicillins Allergy Unknown Verified 09/06/17 12:14 ziprasidone HCl [From Geodon] Allergy Unknown Verified 09/06/17 12:14 ziprasidone mesylate Allergy Unknown Verified 09/06/17 12:14 [From Geodon] IV contrast Allergy Severe Rash Uncoded 03/10/20 15:43 ED Review of Systems ROS: Stated complaint: POSSIBLE DYSTONIC REACTION Other details as noted in HPI Comment: All other systems reviewed and negative Neurological: as per HPI ED Past Medical Hx - Past Medical History Hx Hypertension: No Hx Congestive Heart Failure: No Hx Diabetes: No Hx GERD: Yes Hx Liver Disease: No Hx Renal Disease: No Hx Seizures: Yes Hx Psychiatric Treatment: Yes (PTSD (on disability for this),major depression, bipolar.) Hx Asthma: No Hx COPD: No Additional medical history: pleurisy - Surgical History Additional Surgical History: groin sx ?, gallbladder removed - Social History Smoking Status: Unknown if ever smoked - Medications Home Medications: Home Medications Medication Instructions Recorded Confirmed Last Taken Type propranoloL [Inderal] 10 mg PO QDAY 12/17/18 03/12/20 Unknown History buPROPion [Wellbutrin] 75 mg PO QDAY #30 tablet 12/21/18 03/12/20 Unknown Rx Pantoprazole [Protonix TAB] 40 mg PO QDAY #30 tablet 04/26/19 03/12/20 Unknown Rx Sertraline [Zoloft] 100 mg PO QDAY 03/12/20 03/12/20 Unknown History Ibuprofen [Motrin] 800 mg PO Q8HR PRN #30 tablet 05/26/20 Unknown Rx Acetaminophen/Codeine [Tylenol 1 tab PO Q6H PRN #12 tab 09/18/20 Unknown Rx /Codeine # 3 tab] Ondansetron [Zofran Odt] 4 mg PO Q6HR PRN #15 tab.rapdis 09/18/20 Unknown Rx ED Physical Exam - General Limitations: Physical Limitation General appearance: alert, in no apparent distress - Head Head exam: Present: atraumatic, normocephalic - Eye Eye exam: Present: normal appearance, EOMI - ENT ENT exam: Present: mucous membranes moist, other (Constant movements of tongue present) - Neck Neck exam: Present: normal inspection - Respiratory Respiratory exam: Present: normal lung sounds bilaterally. Absent: respiratory distress - Cardiovascular Cardiovascular Exam: Present: regular rate, normal rhythm - GI/Abdominal GI/Abdominal exam: Present: soft. Absent: distended - Extremities Exam Extremities exam: Present: normal inspection - Neurological Exam Neurological exam: Present: alert, oriented X3, other (Head is somewhat contracted to the left). Absent: motor sensory deficit ED Course Vital Signs 09/20/20 18:53 Temperature 98.3 F Pulse Rate 78 Respiratory 15 Rate Blood Pressure 116/68 [Left] O2 Sat by Pulse 97 Oximetry - Reevaluation(s) Reevaluation #1: 09/20/20 19:05 Patient reevaluated. I observed patient while standing outside of the room and looking in through the window and patient was resting comfortably, no dystonic movements were noted. When I went into the room, patient began twisting his mouth leftward and complaining that Ativan did not help. Patient states he wants more Benadryl. Patient was given 50 mg of Benadryl by EMS prior to ED arrival. I explained to patient that he would not be receiving any more Benadryl, however Cogentin is an option. Patient refusing Cogentin, stating that it does not work. Patient states his tongue is swollen, it is not. Patient able to open his mouth fully and stick his tongue out for me to assess. Patient states he is unable to move his head. I noted that when he arrived, his head was turned leftward, now head is straightforward, therefore his spasm has resolved. Will discharge at this time. ED Medical Decision Making - Medical Decision Making 50-year-old male, history of bipolar disorder, currently at [facility] for treatment, not on a 1013, presents to ED for dystonic reaction. Patient was started on Trileptal on yesterday. He is now experiencing uncontrollable movem ents of the tongue, and contraction of his neck. Patient states this happened previously with Trileptal. Patient was given Benadryl by EMS. He states there was some initial improvement of his symptoms, but feels as if it is coming back. Patient states Cogentin never worked in the past. Patient requested Ativan for symptom relief. Ativan was given. Pt was reassessed. I observed patient while standing outside of the room and looking in through the window and patient was resting comfortably, no dystonic movements were noted. When I went into the room, patient began twisting his mouth leftward and complaining that Ativan did not help. Patient states he wants more Benadryl. Patient was given 50 mg of Benadryl by EMS prior to ED arrival. I explained to patient that he would not be receiving any more Benadryl, however Cogentin is an option. Patient refusing Cogentin, stating that it does not work. Patient states his tongue is swollen, it is not. Patient able to open his mouth fully and stick his tongue out for me to assess. Patient states he is unable to move his head. I noted that when he arrived, his head was turned leftward, now head is straightforward, therefore his spasm has resolved. Will discharge at this time. - Differential Diagnosis Dystonic reaction, drug-seeking behavior Critical care attestation.: If time is entered above; I have spent that time in minutes in the direct care of this critically ill patient, excluding procedure time. ED Disposition Clinical Impression: Acute dystonic reaction due to drugs Disposition: DC-01 TO HOME OR SELFCARE Is pt being admited?: No Condition: Stable Instructions: Dystonic Reaction Referrals: PRIMARY CARE, [Primary Care Provider] - 3-5 Days Time of Disposition: 19:14
[2020-09-20 18:54] VITALS: BP 116/68
== END 2020-09-20 19:15 | disposition home or self-care (01) ==
LOC: ED 18:22
DX: G24.02 Drug induced acute dystonia (principal); T42.1X5A Adverse effect of iminostilbenes, initial encounter; K21.9 Gastro-esophageal reflux disease without esophagitis; R56.9 Unspecified convulsions; Z98.890 Other specified postprocedural states; Z79.1 Long term (current) use of non-steroidal anti-inflammatories (NSAID); Z79.899 Other long term (current) drug therapy; Z88.8 Allergy status to other drugs, medicaments and biological substances; Y92.89 Other specified places as the place of occurrence of the external cause
CPT/HCPCS: 96374; 99284; J2060

== ENCOUNTER 2021-01-08 11:08 | Emergency (ER) | payer MEDICARE ==
[2021-01-08] MEDS ORDERED: SODIUM CHLORIDE 0.9% 1000 ML 1,000 ML IV ONE (12:12)
[2021-01-08] MEDS ORDERED: MORPHINE 4 MG/1 ML INJ IV ONE (12:12)
--- NOTE | 2021-01-08 12:18 | Emergency Department Report ---
HPI <GILMA THOMAS - Last Filed: 01/08/21 16:39> - HPI HPI: 50-year-old male presents to the emergency department with a complaint of right middle to lower and periumbilical abdominal pain that appears to be acute on chronic. The patient says he has been having some "stomach problems" for the past few months. The patient apparently was evaluated at another hospital for his abdominal pain and had a CT scan that showed incidental findings of epiploic appendagitis or central necrosis of a lymph node. There is a referral from his PCP, Dr. Cesar, for a general surgeon Dr. Kilgore to evaluat e him for these incidental findings. However, I do not have the CT report. Patient says that he has attempted to follow-up with his general surgeon but the appointment has been canceled twice. His pain has worsened over the past few days prompting him to come to our emergency department. The patient appears to have a history of previous GERD, esophagitis, previous cholecystectomy, and has some type of psychiatric condition. He has not taken anything for symptoms prior to presentation today. No recent travel or sick contacts at home. He denies any fever, nausea, vomiting, but sometimes has intermittent diarrhea and constipation. <ROSY ALEXANDRA S - Last Filed: 01/09/21 06:03> - General Chief Complaint: Abdominal Pain Time Seen by Provider: 01/08/21 12:03 ED Past Medical Hx <GILMA THOMAS - Last Filed: 01/08/21 16:39> - Past Medical History Hx Hypertension: No Hx Congestive Heart Failure: No Hx Diabetes: No Hx GERD: Yes Hx Liver Disease: No Hx Renal Disease: No Hx Seizures: Yes Hx Psychiatric Treatment: Yes (PTSD (on disability for this),major depression, bipolar.) Hx Asthma: No Hx COPD: No Additional medical history: pleurisy - Surgical History Past Surgical History?: Yes Hx Cholecystectomy: Yes Additional Surgical History: groin sx ? - Social History Smoking Status: Never Smoker Substance Use Type: None <ROSY ALEXANDRA S - Last Filed: 01/09/21 06:03> - Medications Home Medications: Home Medications Medication Instructions Recorded Confirmed Last Taken Type Sertraline [Zoloft] 125 mg PO QDAY 03/12/20 03/12/20 01/08/21 08:00 History HYDROcodone/APAP 5-325 [[place] 1 each PO Q6HR PRN #10 tablet 01/08/21 Unknown Rx 5/325] Pantoprazole [Protonix TAB] 80 mg PO QDAY 01/08/21 01/08/21 08:00 History ED Review of Systems ROS: Stated complaint: ABD PAIN Other details as noted in HPI <GILMA THOMAS K - Last Filed: 01/08/21 16:39> ROS: Stated complaint: ABD PAIN Other details as noted in HPI Comment: All other systems reviewed and negative Constitutional: denies: chills, fever Eyes: denies: eye pain, vision change ENT: denies: ear pain, throat pain Respiratory: denies: cough, shortness of breath Cardiovascular: denies: chest pain, palpitations Gastrointestinal: abdominal pain. denies: nausea, vomiting Genitourinary: denies: dysuria, discharge Musculoskeletal: denies: back pain, arthralgia Skin: denies: rash, lesions Neurological: denies: headache, weakness <ROSY ALEXANDRA S - Last Filed: 01/09/21 06:03> Physical Exam - Physical Exam Vital Signs: Vital Signs 01/08/21 01/08/21 01/08/21 11:34 11:45 11:58 Temperature 98.4 F Pulse Rate 73 72 73 Respiratory 32 H 27 H 20 Rate Blood Pressure 127/110 136/98 O2 Sat by Pulse 96 97 96 Oximetry 01/08/21 01/08/21 12:03 15:21 Temperature Pulse Rate Respiratory 18 18 Rate Blood Pressure O2 Sat by Pulse 98 Oximetry <GILMA THOMAS K - Last Filed: 01/08/21 16:39> - Physical Exam Vital Signs: Vital Signs 01/08/21 01/08/21 01/08/21 11:34 11:45 11:58 Temperature 98.4 F Pulse Rate 73 72 73 Respiratory 32 H 27 H 20 Rate Blood Pressure 127/110 136/98 O2 Sat by Pulse 96 97 96 Oximetry 01/08/21 12:03 Temperature Pulse Rate Respiratory 18 Rate Blood Pressure O2 Sat by Pulse 98 Oximetry Physical Exam: GENERAL: The patient is well-developed well-nourished. HENT: Normocephalic. Atraumatic. Patient has moist mucous membranes. EYES: Extraocular motions are intact. NECK: Supple. Trachea is midline. CHEST/LUNGS: Clear to auscultation. There is no respiratory distress noted. HEART/CARDIOVASCULAR: Regular. There is no tachycardia. There is no murmur. ABDOMEN: Abdomen is soft. There is reproducible tenderness to palpation to right upper and lower quadrants. No guarding. Patient has normal bowel sounds. There is no abdominal distention. SKIN: Skin is warm and dry. NEURO: The patient is awake, alert, and oriented. The patient is cooperative. The patient has no focal neurologic deficits. Normal speech. MUSCULOSKELETAL: There is no tenderness or deformity. There is no limitation range of motion. <ROSY ALEXANDRA - Last Filed: 01/09/21 06:03> ED Course Vital Signs 01/08/21 01/08/21 01/08/21 11:34 11:45 11:58 Temperature 98.4 F Pulse Rate 73 72 73 Respiratory 32 H 27 H 20 Rate Blood Pressure 127/110 136/98 O2 Sat by Pulse 96 97 96 Oximetry 01/08/21 01/08/21 12:03 15:21 Temperature Pulse Rate Respiratory 18 18 Rate Blood Pressure O2 Sat by Pulse 98 Oximetry <GILMA THOMAS K - Last Filed: 01/08/21 16:39> Vital Signs 01/08/21 01/08/21 01/08/21 11:34 11:45 11:58 Temperature 98.4 F Pulse Rate 73 72 73 Respiratory 32 H 27 H 20 Rate Blood Pressure 127/110 136/98 O2 Sat by Pulse 96 97 96 Oximetry 01/08/21 12:03 Temperature Pulse Rate Respiratory 18 Rate Blood Pressure O2 Sat by Pulse 98 Oximetry <ROSY ALEXANDRA S - Last Filed: 01/09/21 06:03> ED Medical Decision Making - Lab Data Result diagrams: 01/08/21 12:46 01/08/21 12:46 - Radiology Data Radiology results: report reviewed (CT abdomen pelvis), image reviewed (CT abdom en pel) [facility] [address] [place] [address] Cat Scan Report Signed Patient: PA MUÑIZ MR#: [id number] : 1970 Acct:[id number] Age/Sex: 50 / M ADM Date: 01/08/21 Loc: ED Attending Dr: Ordering Physician: ROSY ALEXANDRA DO Date of Service: 01/08/21 Procedure(s): CT abdomen pelvis w con Accession Number(s): [id number] cc: ROSY ALEXANDRA DO CT ABDOMEN AND PELVIS WITH CONTRAST INDICATION / CLINICAL INFORMATION: Right middle to RLQ abd pain 100 ML OMNI 300 . TECHNIQUE: Axial CT images were obtained through the abdomen and pelvis after IV contrast. All CT scans at this location are performed using CT dose reduction for ALARA by means of automated exposure control. COMPARISON: September 18, 2020 FINDINGS: LOWER CHEST: No significant abnormality. AORTA / ARTERIES: No significant abnormality. IVC / VEINS: No significant abnormality. LYMPH NODES: No significant adenopathy. COLON: Diverticulosis without acute inflammation. APPENDIX: No significant abnormality. STOMACH / SMALL BOWEL: No significant abnormality. PERITONEUM: No free fluid. No free air. No fluid collection. LIVER: No significant abnormality. GALLBLADDER: Cholecystectomy BILE DUCTS: No significant abnormality. PANCREAS: No significant abnormality. SPLEEN: No significant abnormality. ADRENALS: No significant abnormality. RIGHT KIDNEY / URETER: No significant abnormality. LEFT KIDNEY / URETER: No significant abnormality. URINARY BLADDER: No significant abnormality. REPRODUCTIVE ORGANS: No significant abnormality. SKELETAL SYSTEM: No significant abnormality. ADDITIONAL FINDINGS: None. IMPRESSION: 1. No acute intra-abdominal or intrapelvic pathology. Signer Name: Kashif Nicholas DO Signed: 01/08/2021 4:22 PM Workstation Name: [email or web address] Transcribed By: PHOEBE Dictated By: KASHIF NICHOLAS DO Electronically Authenticated By: KASHIF MORATAYA DO Signed Date/Time: 01/08/211621 DD/ 14 TD/TT: Print Cancel <GILMA THOMAS K - Last Filed: 01/08/21 16:39> - Lab Data Result diagrams: 01/08/21 12:46 01/08/21 12:46 Lab Results 01/08/21 01/08/21 01/08/21 Range/Units 12:46 12:46 12:58 WBC 8.2 (4.5-11.0) K/mm3 RBC 5.51 H (3.65-5.03) M/mm3 Hgb 15.1 (11.8-15.2) gm/dl Hct 44.2 (35.5-45.6) % MCV 80 L (84-94) fl MCH 27 L (28-32) pg MCHC 34 (32-34) % RDW 14.1 (13.2-15.2) % Plt Count 196 (140-440) K/mm3 Lymph % (Auto) 18.9 (13.4-35.0) % [place] % (Auto) 9.9 H (0.0-7.3) % Eos % (Auto) 1.5 (0.0-4.3) % Baso % (Auto) 0.9 (0.0-1.8) % Lymph # (Auto) 1.5 (1.2-5.4) K/mm3 [place] # (Auto) 0.8 (0.0-0.8) K/mm3 Eos # (Auto) 0.1 (0.0-0.4) K/mm3 Baso # (Auto) 0.1 (0.0-0.1) K/mm3 Seg Neutrophils % 68.8 (40.0-70.0) % Seg Neutrophils # 5.6 (1.8-7.7) K/mm3 Sodium 136 L (137-145) mmol/L Potassium 4.7 (3.6-5.0) mmol/L Chloride 101.1 (98-107) mmol/L Carbon Dioxide 22 (22-30) mmol/L Anion Gap 18 mmol/L BUN 12 (9-20) mg/dL Creatinine 0.7 L (0.8-1.3) mg/dL Estimated GFR > 60 ml/min BUN/Creatinine Ratio 17 % Glucose 97 (75-100) mg/dL Calcium 9.6 (8.4-10.2) mg/dL Total Bilirubin 0.30 (0.1-1.2) mg/dL Direct Bilirubin < 0.2 (0-0.2) mg/dL Indirect Bilirubin 0.1 mg/dL AST 46 H (5-40) units/L ALT 30 (7-56) units/L Alkaline Phosphatase 109 (35-129) units/L Total Protein 7.3 (6.3-8.2) g/dL Albumin 4.6 (3.9-5) g/dL Albumin/Globulin Ratio 1.7 % Lipase 39 (13-60) units/L Urine Color Yellow (Yellow) Urine Turbidity Clear (Clear) Urine pH 6.0 (5.0-7.0) Ur Specific [place] 1.013 (1.003-1.030) Urine Protein <15 mg/dl (Negative) mg/dL Urine Glucose (UA) Neg (Negative) mg/dL Urine Ketones Neg (Negative) mg/dL Urine Blood Neg (Negative) Urine Nitrite Neg (Negative) Urine Bilirubin Neg (Negative) Urine Urobilinogen < 2.0 (<2.0) mg/dL Ur Leukocyte Esterase Neg (Negative) Urine WBC (Auto) < 1.0 (0.0-6.0) /HPF Urine RBC (Auto) 1.0 (0.0-6.0) /HPF U Epithel Cells (Auto) < 1.0 (0-13.0) /HPF Urine Mucus Few /HPF - Medical Decision Making This patient presents to the emergency department with acute on chronic right middle to lower and periumbilical abdominal pain. On examination this discomfort is reproducible to palpation. However the abdomen is soft, nondistended and nontoxic in appearance. Patient's labs have been mostly unremarkable including CBC, metabolic panel, lipase, and urinalysis. CT of the abdomen and pelvis with IV contrast did not show any acute intra-abdominal or intrapelvic pathology. Vital signs have been reassuring throughout his ED course including being afebrile. The patient has been given some IV analgesia with improvement of his condition. He will be given outpatient referral and a prescription for pain medication. <ROSY ALEXANDRA S - Last Filed: 01/09/21 06:03> Critical care attestation.: If time is entered above; I have spent that time in minutes in the direct care of this critically ill patient, excluding procedure time. <GILMA THOMAS - Last Filed: 01/08/21 16:39> Critical Care Time: No Critical care attestation.: If time is entered above; I have spent that time in minutes in the direct care of this critically ill patient, excluding procedure time. <ROSY ALEXANDRA - Last Filed: 01/09/21 06:03> ED Disposition Is pt being admited?: No Does the pt Need Aspirin: No <GILMA THOMAS - Last Filed: 01/08/21 16:39> Is pt being admited?: No Time of Disposition: 06:03 <ROSY ALEXANDRA S - Last Filed: 01/09/21 06:03> Clinical Impression: Acute abdominal pain Abdominal pain Qualifiers: Abdominal location: unspecified location Qualified Code(s): R10.9 - Unspecified abdominal pain Disposition: 01 HOME / SELF CARE / HOMELESS Condition: Stable Instructions: Abdominal Pain, Adult Additional Instructions: Please follow-up with your primary care physician in the next few days. Please follow-up with the general surgeon as previously scheduled. You have been prescribed a medication that is sedating and therefore should not be taken prior to driving, working, and responsible for children and in no way should be mixed with alcohol of any quantity. Return to the emergency department with any worsening of your symptoms, new or concerning symptoms not addressed during this current emergency department visit, or with any acute distress. Prescriptions: HYDROcodone/APAP 5-325 [[place] 5/325] 1 each PO Q6HR PRN #10 tablet PRN Reason: Pain Referrals: KARMA CESAR MD [Primary Care Provider] - 3-5 Days ADA PEDRAZA MD [Staff Physician] - 2-3 Days (Dr. Pedraza is a [employer] control room operator. Please follow-up with him for further evaluation)
[2021-01-08 13:02] LABS: Basophils # (Auto) 0.1 K/mm3 (0.0-0.1); Basophils % (Auto) 0.9 % (0.0-1.8); Eosinophils # (Auto) 0.1 K/mm3 (0.0-0.4); Eosinophils % (Auto) 1.5 % (0.0-4.3); Hematocrit 44.2 % (35.5-45.6); Hemoglobin 15.1 gm/dl (11.8-15.2); Lymphocytes # (Auto) 1.5 K/mm3 (1.2-5.4); Lymphocytes % (Auto) 18.9 % (13.4-35.0); Mean Corpuscular HGB Conc 34 % (32-34); Mean Corpuscular Volume 80 fl (84-94); Monocytes # (Auto) 0.8 K/mm3 (0.0-0.8); Monocytes % (Auto) 9.9 % (0.0-7.3); Platelet Count 196 K/mm3 (140-440); Red Blood Count 5.51 M/mm3 (3.65-5.03); Red Cell Distribution Width 14.1 % (13.2-15.2)
[2021-01-08] MEDS ORDERED: MORPHINE 2 MG/1 ML INJ ONE (13:02)
[2021-01-08 13:18] LABS: Bilirubin,Urine NEG (Negative); Blood,Urine NEG (Negative); Color,Urine Yellow (Yellow); Mucus,Urine FEW /HPF; Protein,Urine <15 mg/dL mg/dL (Negative); Urobilinogen,Urine < 2.0 mg/dL (<2.0); WBC,Urine < 1.0 /HPF (0.0-6.0)
[2021-01-08 13:24] LABS: Alanine Aminotransferase 30 units/L (7-56); Albumin 4.6 g/dL (3.9-5); Blood Urea Nitrogen 12 mg/dL (9-20); Calcium 9.6 mg/dL (8.4-10.2); Hemolysis Index 43
[2021-01-08 13:40] LABS: BUN/Creatinine Ratio 17; Bilirubin,Direct < 0.2 mg/dL (0-0.2)
--- NOTE | 2021-01-08 16:26 | Cat Scan Report ---
CT ABDOMEN AND PELVIS WITH CONTRAST INDICATION / CLINICAL INFORMATION: Right middle to RLQ abd pain 100 ML OMNI 300 . TECHNIQUE: Axial CT images were obtained through the abdomen and pelvis after IV contrast. All CT sc ans at this location are performed using CT dose reduction for ALARA by means of automated exposure c ontrol. COMPARISON: September 18, 2020 FINDINGS: LOWER CHEST: No significant abnormality. AORTA / ARTERIES: No significant abnormality. IVC / VEINS: No significant abnormality. LYMPH NODES: No significant adenopathy. COLON: Diverticulosis without acute inflammation. APPENDIX: No significant abnormality. STOMACH / SMALL BOWEL: No significant abnormality. PERITONEUM: No free fluid. No free air. No fluid collection. LIVER: No significant abnormality. GALLBLADDER: Cholecystectomy BILE DUCTS: No significant abnormality. PANCREAS: No significant abnormality. SPLEEN: No significant abnormality. ADRENALS: No significant abnormality. RIGHT KIDNEY / URETER: No significant abnormality. LEFT KIDNEY / URETER: No significant abnormality. URINARY BLADDER: No significant abnormality. REPRODUCTIVE ORGANS: No significant abnormality. SKELETAL SYSTEM: No significant abnormality. ADDITIONAL FINDINGS: None. IMPRESSION: 1. No acute intra-abdominal or intrapelvic pathology. Signer Name: Kashif Barrera DO Signed: 01/08/2021 4:22 PM Workstation Name: [id number]
[2021-01-08] MEDS ORDERED: HYDROmorphone 1 MG/1 ML INJ IV ONE (16:39)
[2021-01-08 17:25] VITALS: BP 133/65
== END 2021-01-08 17:25 | disposition home or self-care (01) ==
LOC: ED 11:08
DX: R10.9 Unspecified abdominal pain (principal); K21.9 Gastro-esophageal reflux disease without esophagitis; F31.9 Bipolar disorder, unspecified; Z90.49 Acquired absence of other specified parts of digestive tract; Z88.8 Allergy status to other drugs, medicaments and biological substances
CPT/HCPCS: 36415; 74177; 80048; 80076; 81001; 83690; 85025; 96361; 96374; 99284; J1170; J2270; J7030; Q9967

== ENCOUNTER 2021-05-07 08:03 | Emergency (ER) | payer MEDICARE ==
[2021-05-07 09:12] VITALS: BP 111/75
[2021-05-07] MEDS ORDERED: ACETAMINOPHEN 500 MG TAB PO ONE (10:28)
[2021-05-07] MEDS ORDERED: HYOSCYAMINE SUBL 0.125 MG TAB SL ONE (10:30)
[2021-05-07] MEDS ORDERED: ONDANSETRON 4 MG ODT TAB PO ONE (10:30)
--- NOTE | 2021-05-07 10:33 | Emergency Department Report ---
ED Abdominal Pain HPI - General Chief Complaint: Abdominal Pain Stated Complaint: ABDOMINAL PAIN Time Seen by Provider: 05/07/21 10:28 Source: patient Mode of arrival: Ambulatory Limitations: No Limitations - History of Present Illness Initial Comments: 50-year-old -[place] male presents to the emergency room complaining of abdominal pain that is worse with eating. He states this has been going on for a while. He reports he has been seen at [facility] for the same complaint as well as been followed by GI provider. Patient reports his next appointment is June. Patient reports she is currently taking Linzess and Pepcid. He has not taken anything for his pain. He reports that he has been on gluten-free diet and low sugar diet as requested by his GI specialist. He admits to nausea no vomiting no diarrhea no fever no chills no constipation. States his pain is a 10 out of 10. MD Complaint: abdominal pain Onset/Timin -: month(s) Location: periumbilical Migration to: LUQ, RUQ Severity scale (0 -10): 10 Quality: stabbing Consistency: constant Improves With: nothing Worsens With: eating - Related Data Home Medications Medication Instructions Recorded Confirmed Last Taken Sertraline [Zoloft] 125 mg PO QDAY 03/12/20 03/12/20 01/08/21 08:00 Pantoprazole [Protonix TAB] 80 mg PO QDAY 01/08/21 01/08/21 08:00 Previous Rx's Medication Instructions Recorded Last Taken Type HYDROcodone/APAP 5-325 [[place] 1 each PO Q6HR PRN #10 tablet 01/08/21 Unknown Rx 5/325] Allergies Allergy/AdvReac Type Severity Reaction Status Date / Time metoclopramide [From Reglan] Allergy Vomiting Verified 12/15/18 08:27 ED Review of Systems ROS: Stated complaint: ABDOMINAL PAIN Other details as noted in HPI Comment: All other systems reviewed and negative ED Past Medical Hx - Past Medical History Hx Hypertension: No Hx Congestive Heart Failure: No Hx Diabetes: No Hx GERD: Yes Hx Liver Disease: No Hx Renal Disease: No Hx Seizures: Yes Hx Psychiatric Treatment: Yes (PTSD (on disability for this),major depression, bipolar.) Hx Asthma: No Hx COPD: No Additional medical history: pleurisy - Surgical History Hx Cholecystectomy: Yes Additional Surgical History: groin sx ? - Social History Smoking Status: Never Smoker Substance Use Type: None - Medications Home Medications: Home Medications Medication Instructions Recorded Confirmed Last Taken Type Sertraline [Zoloft] 125 mg PO QDAY 03/12/20 03/12/20 01/08/21 08:00 History HYDROcodone/APAP 5-325 [[place] 1 each PO Q6HR PRN #10 tablet 01/08/21 Unknown Rx 5/325] Pantoprazole [Protonix TAB] 80 mg PO QDAY 01/08/21 01/08/21 08:00 History ED Physical Exam - General Limitations: No Limitations General appearance: alert, in no apparent distress - Head Head exam: Present: atraumatic, normocephalic - Eye Eye exam: Present: normal appearance - ENT ENT exam: Present: mucous membranes moist - Neck Neck exam: Present: normal inspection - Respiratory Respiratory exam: Present: normal lung sounds bilaterally. Absent: respiratory distress - Cardiovascular Cardiovascular Exam: Present: regular rate, normal rhythm. Absent: systolic murmur, diastolic murmur, rubs, gallop - GI/Abdominal GI/Abdominal exam: Present: soft, normal bowel sounds - Rectal Rectal exam: Present: deferred - Extremities Exam Extremities exam: Present: normal inspection - Back Exam Back exam: Present: normal inspection - Neurological Exam Neurological exam: Present: alert, oriented X3 - Psychiatric Psychiatric exam: Present: normal affect, normal mood - Skin Skin exam: Present: warm, dry, intact, normal color. Absent: rash ED Course Vital Signs 05/07/21 09:10 Temperature 98.3 F Pulse Rate 63 Respiratory 18 Rate Blood Pressure 111/75 [Right] O2 Sat by Pulse 98 Oximetry ED Medical Decision Making - Lab Data Result diagrams: 05/07/21 10:54 05/07/21 10:54 - Medical Decision Making 50-year-old -[place] male presents to the emergency room complaining of abdominal pain that is worse with eating. He states this has been going on for a while. He reports he has been seen at [facility] for the same complaint as well as been followed by GI provider. Patient reports his next appointment is June. Patient reports she is currently taking Linzess and Pepcid. He has not taken anything for his pain. He reports that he has been on gluten-free diet and low sugar diet as requested by his GI specialist. He admits to nausea no vomiting no diarrhea no fever no chills no constipation. States his pain is a 10 out of 10. Patient ordered acetaminophen, Levsin and Zofran. Critical care attestation.: If time is entered above; I have spent that time in minutes in the direct care of this critically ill patient, excluding procedure time. ED Disposition Clinical Impression: Acute abdominal pain Disposition: 07 LEFT AWOL/ELOPED Is pt being admited?: No Does the pt Need Aspirin: No Condition: Stable Referrals: KARMA CESAR MD [Primary Care Provider] - 3-5 Days
[2021-05-07 11:14] LABS: Basophils # (Auto) 0.1 K/mm3 (0.0-0.1); Basophils % (Auto) 1.2 % (0.0-1.8); Eosinophils # (Auto) 0.6 K/mm3 (0.0-0.4); Eosinophils % (Auto) 5.7 % (0.0-4.3); Hematocrit 41.9 % (35.5-45.6); Hemoglobin 14.9 gm/dl (11.8-15.2); Lymphocytes # (Auto) 1.9 K/mm3 (1.2-5.4); Lymphocytes % (Auto) 19.1 % (13.4-35.0); Mean Corpuscular HGB Conc 36 % (32-34); Mean Corpuscular Volume 82 fl (84-94); Monocytes # (Auto) 0.6 K/mm3 (0.0-0.8); Monocytes % (Auto) 6.4 % (0.0-7.3); Platelet Count 254 K/mm3 (140-440); Red Blood Count 5.09 M/mm3 (3.65-5.03); Red Cell Distribution Width 13.8 % (13.2-15.2)
[2021-05-07 11:31] LABS: Alanine Aminotransferase 48 units/L (7-56); Albumin 4.6 g/dL (3.9-5); BUN/Creatinine Ratio 30; Blood Urea Nitrogen 24 mg/dL (9-20); Calcium 9.4 mg/dL (8.4-10.2); Hemolysis Index 40
== END 2021-05-07 20:14 | disposition left against medical advice (07) ==
LOC: ED 08:03
DX: R10.9 Unspecified abdominal pain (principal); Z88.8 Allergy status to other drugs, medicaments and biological substances
CPT/HCPCS: 36415; 80053; 83690; 85025; 99283; J3490; Q0162

== ENCOUNTER 2021-06-27 09:25 | Emergency (ER) | payer MEDICARE ==
[2021-06-27] MEDS ORDERED: SODIUM CHLORIDE 0.9% 1000 ML 1,000 ML IV ONE (10:29)
[2021-06-27] MEDS ORDERED: diazePAM 10 MG/2 ML SYRINGE IV ONE (10:29)
--- NOTE | 2021-06-27 10:33 | Emergency Department Report ---
ED General Adult HPI - General Chief complaint: Dizziness Stated complaint: I think I have rhabdo Time Seen by Provider: 06/27/21 09:54 Source: patient, EMS (Verbal report received from emergency medical services. EMS documentation not available at time of chart dictation ), RN notes reviewed, old records reviewed Mode of arrival: Stretcher Limitations: No Limitations - History of Present Illness Initial comments: Verbal report received from emergency medical services. EMS documentation not available at time of chart dictation Patient is a 50-year-old gentleman. He has a past medical history of EGD confirmed esophagitis, alcohol use, cocaine use, and rhabdomyolysis. EMS reported to myself that the patient called 911 because of a complaint of leg pain and back pain. The patient complains of diffuse lower extremity myalgias, thinking that he is currently in rhabdomyolysis. He recreationally consumes cocaine a few days ago by snorting it. He also reports that yesterday, he was walking downstairs, and he is not sure if he tripped, fell, lost consciousness or passed out. He reports falling down 12 stairs, hitting his head. He compla ins of headache, postevent confusion, denies neck pain, denies chest pain, also complains of lower back pain. Patient also endorses dysuria, and dark-colored urine. He denies extremity weakness and numbness. He denies hallucinations. He denies homicidality and suicidality. He feels anxious. He recreationally consumes alcohol by history, but reports that he does not consume alcohol on a regular basis. He denies travel, surgery, immobilization, DVT/PE risk factors. -: Sudden Location: head, back, left, right, lower extremity Quality: aching Consistency: constant Improves with: rest Worsens with: movement - Related Data Home Medications Medication Instructions Recorded Confirmed Last Taken Sertraline [Zoloft] 125 mg PO QDAY 03/12/20 03/12/20 01/08/21 08:00 Pantoprazole [Protonix TAB] 80 mg PO QDAY 01/08/21 01/08/21 08:00 Previous Rx's Medication Instructions Recorded Last Taken Type Acetaminophen [Non-Aspirin Extra 500 mg PO Q6HR PRN #30 tablet 06/27/21 Unknown Rx Strength] Multivitamin with Folic Acid [[facility] 400 mcg PO QDAY #30 tablet 06/27/21 Unknown Rx One Daily Essential Tablet] Ondansetron [Zofran Odt] 4 mg PO Q8HR PRN #20 tab.rapdis 06/27/21 Unknown Rx chlordiazePOXIDE [Librium] 25 mg PO Q6H PRN #25 capsule 06/27/21 Unknown Rx Allergies Allergy/AdvReac Type Severity Reaction Status Date / Time metoclopramide [From Reglan] Allergy Vomiting Verified 06/27/21 09:31 ED Review of Systems ROS: Stated complaint: SYNCOPE/YESTERDAY/DIZZY Other details as noted in HPI Constitutional: malaise, weakness. denies: fever Eyes: denies: eye discharge ENT: denies: epistaxis Respiratory: denies: cough Cardiovascular: syncope. denies: chest pain Gastrointestinal: nausea. denies: abdominal pain, vomiting, hematemesis, melena, hematochezia Genitourinary: as per HPI, dysuria, frequency. denies: testicular pain Musculoskeletal: back pain, arthralgia, myalgia Neurological: headache, weakness, confusion (Post event confusion) Psychiatric: anxiety. denies: auditory hallucinations, visual hallucinations, homicidal thoughts, suicidal thoughts ED Past Medical Hx - Past Medical History Hx Hypertension: No Hx Congestive Heart Failure: No Hx Diabetes: No Hx GERD: Yes Hx Liver Disease: No Hx Renal Disease: No Hx Seizures: Yes Hx Psychiatric Treatment: Yes (PTSD (on disability for this),major depression, bipolar.) Hx Asthma: No Hx COPD: No Additional medical history: pleurisy - Surgical History Hx Cholecystectomy: Yes Additional Surgical History: groin sx ?1989/1990 - Social History Smoking Status: Never Smoker Substance Use Type: None - Medications Home Medications: Home Medications Medication Instructions Recorded Confirmed Last Taken Type Sertraline [Zoloft] 125 mg PO QDAY 03/12/20 03/12/20 01/08/21 08:00 History Pantoprazole [Protonix TAB] 80 mg PO QDAY 01/08/21 01/08/21 08:00 History Acetaminophen [Non-Aspirin Extra 500 mg PO Q6HR PRN #30 tablet 06/27/21 Unknown Rx Strength] Multivitamin with Folic Acid [[facility] 400 mcg PO QDAY #30 tablet 06/27/21 Unknown Rx One Daily Essential Tablet] Ondansetron [Zofran Odt] 4 mg PO Q8HR PRN #20 tab.rapdis 06/27/21 Unknown Rx chlordiazePOXIDE [Librium] 25 mg PO Q6H PRN #25 capsule 06/27/21 Unknown Rx ED Physical Exam - General Limitations: No Limitations General appearance: alert, anxious - Head Head exam: Present: normocephalic, other (There is a right forehead abrasion noted) - Eye Eye exam: Present: normal appearance, EOMI. Absent: nystagmus - ENT ENT exam: Present: normal orophraynx, mucous membranes dry, normal external ear exam, other (Tongue fasciculations noted. Dry mucous membranes noted.) - Neck Neck exam: Present: normal inspection, full ROM. Absent: tenderness, meningismus - Respiratory Respiratory exam: Present: normal lung sounds bilaterally. Absent: respiratory distress, wheezes, rales, rhonchi, stridor, decreased breath sounds - Cardiovascular Cardiovascular Exam: Present: regular rate, normal rhythm, normal heart sounds. Absent: bradycardia, tachycardia, irregular rhythm, systolic murmur, diastolic murmur, rubs, gallop - GI/Abdominal GI/Abdominal exam: Present: soft. Absent: distended, tenderness, guarding, rebound, rigid, pulsatile mass - Rectal Rectal exam: Present: deferred - Extremities Exam Extremities exam: Present: normal inspection, full ROM, calf tenderness, other (2+ pulses noted in the bilateral upper and lower extremities. There is no long bony tenderness. The muscular compartments are soft. Bilateral lower extremities are diffusely tender. There is no pain with passive range of motion of the toes.). Absent: pedal edema - Back Exam Back exam: Present: normal inspection, muscle spasm, paraspinal tenderness, vertebral tenderness (Lumbar spine tenderness). Absent: CVA tenderness (R), CVA tenderness (L) - Neurological Exam Neurological exam: Present: alert, oriented X3, reflexes normal, other (No facial droop. Tongue midline. Extraocular movements intact bilaterally. Facial sensation intact to light touch in V1, V2, V3 distribution bilaterally. 5 and a 5 strength in 4 extremities. Sensation intact to light touch in 4 extremities.) - Psychiatric Psychiatric exam: Present: anxious. Absent: homicidal ideation, suicidal ideation - Skin Skin exam: Present: warm, abrasion (Abrasion noted to the right forehead) ED Course Vital Signs 06/27/21 06/27/21 06/27/21 10:26 10:31 10:45 Temperature Pulse Rate 56 L 56 L Respiratory 19 13 Rate Blood Pressure 145/88 145/88 O2 Sat by Pulse 100 100 100 Oximetry O2 Sat by Pulse Oximetry [ Digit-Finger] 06/27/21 06/27/21 06/27/21 11:01 11:15 11:31 Temperature Pulse Rate 59 L 60 70 Respiratory 17 15 18 Rate Blood Pressure 130/94 130/94 130/94 O2 Sat by Pulse 100 100 100 Oximetry O2 Sat by Pulse Oximetry [ Digit-Finger] 06/27/21 06/27/21 06/27/21 11:44 11:45 13:21 Temperature 98.0 F Pulse Rate 80 Respiratory 16 Rate Blood Pressure 123/83 O2 Sat by Pulse 100 Oximetry O2 Sat by Pulse 99 Oximetry [ Digit-Finger] 06/27/21 13:32 Temperature Pulse Rate Respiratory Rate Blood Pressure 104/59 O2 Sat by Pulse 98 Oximetry O2 Sat by Pulse Oximetry [ Digit-Finger] - Reevaluation(s) Reevaluation #1: 06/27/21 10:40 Differential diagnosis, include but not limited to: Closed head injury, alcohol withdrawal, rhabdomyolysis, mechanical back injury, electrolyte derangement, concussion, orthostasis, vagal event, structural cardiac disease Assessment and plan: 50-year-old gentleman with a complaint of lower extremity cramping, pain, and dark-colored urine, unclear if patient had a slip/trip/syncopal events yesterday, with probable postconcussion syndrome. He is currently awake, alert, oriented, sober with a GCS of 15. Patient is clinically sober at this time. The cervical spine is cleared through nexus and [place] c spine rule Place patient on nurse clinician. Obtain EKG, x-ray the chest, laboratory studies, urinalysis, noncontrast CT scan of the brain, noncontrast CT scan abdomen pelvis, and x-ray the chest. Start patient on fluids, Valium, and nicolette sea medicine. Reassess after initial data points. Have discussed this plan of care with the patient. He is agreeable to the plan of care. 06/27/21 10:42 The patient is not currently tachycardic, tachypneic or hypoxic. He denies DVT/PE risk factors, he is low risk by Wells criteria for pulmonary embolism. 06/27/21 13:19 The patient is reexamined. No active seizures or loss of consciousness noted. Laboratory studies are essentially unremarkable. X-ray the chest, CT scan brain, CT scan abdomen pelvis negative for acute traumatic findings. Currently awaiting urine sample. Have provided oral hydration to patient, and encouraged him to urinate. He did endorse to the nurse that he was able to urinate this morning. Elevated CK of 930 not consistent with rhabdomyolysis 06/27/21 14:14 Final reassessment. Patient able to urinate. He drank water vigorously and without difficulty. Urinalysis nonactionable. Observed in this ER for hours without clinical deterioration or convulsive event or seizure. May be discharged with supportive care as an outpatient. - Pulse Oximetry Interpretation Digit-Finger Initial Pulse Oximetry Readin O2 Sat by Pulse Oximetry: 99 Actions Taken: none ED Medical Decision Making - Lab Data Result diagrams: 06/27/21 11:13 06/27/21 11:13 Lab Results 06/27/21 Range/Units 11:13 WBC 11.7 H (4.5-11.0) K/mm3 RBC 4.95 (3.65-5.03) M/mm3 Hgb 14.0 (11.8-15.2) gm/dl Hct 40.5 (35.5-45.6) % MCV 82 L (84-94) fl MCH 28 (28-32) pg MCHC 35 H (32-34) % RDW 14.5 (13.2-15.2) % Plt Count 219 (140-440) K/mm3 Vital Signs 06/27/21 06/27/21 06/27/21 10:26 10:31 10:42 Pulse Rate 56 L Respiratory 19 Rate Blood Pressure 145/88 O2 Sat by Pulse 100 100 Oximetry O2 Sat by Pulse 99 Oximetry [ Digit-Finger] 06/27/21 06/27/21 10:45 11:01 Pulse Rate 56 L 59 L Respiratory 13 17 Rate Blood Pressure 145/88 130/94 O2 Sat by Pulse 100 100 Oximetry O2 Sat by Pulse Oximetry [ Digit-Finger] - EKG Data -: EKG Interpreted by Ms EKG shows normal: sinus rhythm Rate: normal - EKG Data 06/27/21 11:40 The EKG is interpreted at 11: 18 Motion artifact. Sinus rhythm, 62 bpm. Normal axis, normal P wave axis, high left ventricular voltage, motion artifact. Abnormal EKG. Not a STEMI. QTc 5 6 4 ms - Radiology Data Radiology results: pending, report reviewed, image reviewed CHEST 1 VIEW 06/27/2021 10:41 AM INDICATION / CLINICAL INFORMATION: back pain syncope. 03/10/20 COMPARISON: None available. FINDINGS: SUPPORT DEVICES: None. HEART / MEDIASTINUM: No significant abnormality. LUNGS / PLEURA: No significant pulmonary or pleural abnormality. No pneumothorax. ADDITIONAL FINDINGS: No significant additional findings. IMPRESSION: 1. No acute findings. Signer Name: Jenny Mckay MD Signed: 06/27/2021 9:50 AM Workstation Name: [id number] CT ABDOMEN AND PELVIS WITHOUT CONTRAST INDICATION / CLINICAL INFORMATION: Lower back pain status post mechanical fall/. TECHNIQUE: Axial CT images were obtained through the abdomen and pelvis without IV contrast. All CT scans at this location are performed using CT dose reduction for ALARA by means of autom ated exposure control. COMPARISON: CT dated 09/18/2020 and 01/08/2021 FINDINGS: LOWER CHEST: No significant abnormality. LIVER: No significant abnormality. GALLBLADDER: Cholecystectomy. BILE DUCTS: No significant abnormality. PANCREAS: No significant abnormality. SPLEEN: No significant abnormality. ADRENALS: No significant abnormality. RIGHT KIDNEY / URETER: No significant abnormality. LEFT KIDNEY / URETER: No significant abnormality. STOMACH / SMALL BOWEL: No significant abnormality. COLON: Diverticulosis without acute inflammation. APPENDIX: No significant abnormality. PERITONEUM: No free fluid. No free air. No fluid collection. LYMPH NODES: No significant adenopathy. AORTA / ARTERIES: No significant abnormality. IVC / VEINS: No significant abnormality. URINARY BLADDER: No significant abnormality. REPRODUCTIVE ORGANS: No significant abnormality. ADDITIONAL FINDINGS: None. SKELETAL SYSTEM: No acute osseous abnormality. Chronic bilateral L5 pars defects with minimal anterolisthesis of L5 on S1 which is unchanged. No acute abnormality of the lumbar spine. IMPRESSION: 1. No acute process in the abdomen or pelvis. 2. No acute abnormality of the lumbar spine. Signer Name: Jenny Mckay MD Signed: 06/27/2021 11:23 AM Workstation Name: [id number] CT HEAD WITHOUT CONTRAST INDICATION / CLINICAL INFORMATION: closed head injury concussion. TECHNIQUE: All CT scans at this location are performed using CT dose reduction for ALARA by means of automated exposure control. COMPARISON: CT dated 09/18/20 FINDINGS: HEMORRHAGE: None. EXTRA-AXIAL SPACES: Normal in size and morphology for the patient's age. VENTRICULAR SYSTEM: Normal in size and morphology for the patient's age. CEREBRAL PARENCHYMA: No significant abnormality. No acute territorial infarct. MIDLINE SHIFT / HERNIATION: None. CEREBELLUM / BRAINSTEM: No significant abnormality. ORBITS: Normal as visualized. SOFT TISSUES: No significant abnormality. SKULL: No significant abnormality. PARANASAL SINUSES / MASTOID AIR CELLS: Normal as visualized. ADDITIONAL FINDINGS: None. IMPRESSION: 1. No acute intracranial abnormality. No change. Signer Name: Jenny Mckay MD Signed: 06/27/2021 11:20 AM Workstation Name: [id number] Critical care attestation.: If time is entered above; I have spent that time in minutes in the direct care of this critically ill patient, excluding procedure time. ED Disposition Clinical Impression: Closed head injury, Lower back pain, Muscle cramp, History of crack cocaine use Disposition: 01 HOME / SELF CARE / HOMELESS Is pt being admited?: No Does the pt Need Aspirin: No Condition: Good Additional Instructions: Recommend that patient not drive or operate motor vehicles for the next 6 months, or until cleared to do so by a primary care doctor. Avoid consumption of alcohol, tobacco, smoke products and crack cocaine. Take the pain medication as needed and directed, nausea medication/headache medication as needed and directed, use the Librium medication as needed for sensation of alcohol withdrawal and shakes. Drink copious water and fluids. Avoid contact sports and contact activities. Recommend follow-up with a primary care doctor within the next week. Please return to the emergency room right away with new pain, worsened pain, migration of pain, projectile vomiting, change in mental status, confusion, inability tolerate liquid feeds, new, worsened or different symptoms not present on the initial emergency room evaluation Prescriptions: Multivitamin with Folic Acid [[facility]vs One Daily Essential Tablet] 400 mcg PO QDAY #30 tablet chlordiazePOXIDE [Librium] 25 mg PO Q6H PRN #25 capsule PRN Reason: Alcohol Withdrawal Acetaminophen [Non-Aspirin Extra Strength] 500 mg PO Q6HR PRN #30 tablet PRN Reason: Pain , Severe (7-10) Ondansetron [Zofran Odt] 4 mg PO Q8HR PRN #20 tab.rapdis PRN Reason: Nausea Referrals: KARMA CESAR MD [Primary Care Provider] - 3-5 Days [facility] [Outside] - 3-5 Days [facility] [Outside] - 3-5 Days
[2021-06-27] MEDS ORDERED: ONDANSETRON 4 MG/2 ML INJ IV ONE (10:37)
--- NOTE | 2021-06-27 10:54 | XRay Report ---
CHEST 1 VIEW 06/27/2021 10:41 AM INDICATION / CLINICAL INFORMATION: back pain syncope. 03/10/20 COMPARISON: None available. FINDINGS: SUPPORT DEVICES: None. HEART / MEDIASTINUM: No significant abnormality. LUNGS / PLEURA: No significant pulmonary or pleural abnormality. No pneumothorax. ADDITIONAL FINDINGS: No significant additional findings. IMPRESSION: 1. No acute findings. Signer Name: Jenny Mckay MD Signed: 06/27/2021 10:50 AM Workstation Name: [id number]
[2021-06-27 11:34] LABS: Hematocrit 40.5 % (35.5-45.6); Mean Corpuscular HGB Conc 35 % (32-34); Mean Corpuscular Volume 82 fl (84-94); Red Blood Count 4.95 M/mm3 (3.65-5.03); Red Cell Distribution Width 14.5 % (13.2-15.2)
[2021-06-27 11:37] LABS: Platelet Count 219 K/mm3 (140-440)
[2021-06-27 11:45] LABS: INR 0.92 (0.87-1.13)
[2021-06-27 11:49] LABS: Alanine Aminotransferase 44 units/L (7-56); Albumin 4.6 g/dL (3.9-5); Blood Urea Nitrogen 16 mg/dL (9-20); Calcium 9.2 mg/dL (8.4-10.2); Hemolysis Index 109
[2021-06-27 11:55] LABS: BUN/Creatinine Ratio 27
--- NOTE | 2021-06-27 12:24 | Cat Scan Report ---
CT HEAD WITHOUT CONTRAST INDICATION / CLINICAL INFORMATION: closed head injury concussion. TECHNIQUE: All CT scans at this location are performed using CT dose reduction for ALARA by means of automated exposure control. COMPARISON: CT dated 09/18/20 FINDINGS: HEMORRHAGE: None. EXTRA-AXIAL SPACES: Normal in size and morphology for the patient's age. VENTRICULAR SYSTEM: Normal in size and morphology for the patient's age. CEREBRAL PARENCHYMA: No significant abnormality. No acute territorial infarct. MIDLINE SHIFT / HERNIATION: None. CEREBELLUM / BRAINSTEM: No significant abnormality. ORBITS: Normal as visualized. SOFT TISSUES: No significant abnormality. SKULL: No significant abnormality. PARANASAL SINUSES / MASTOID AIR CELLS: Normal as visualized. ADDITIONAL FINDINGS: None. IMPRESSION: 1. No acute intracranial abnormality. No change. Signer Name: Jenny Mckay MD Signed: 06/27/2021 12:20 PM Workstation Name: [id number]
--- NOTE | 2021-06-27 12:27 | Cat Scan Report ---
CT ABDOMEN AND PELVIS WITHOUT CONTRAST INDICATION / CLINICAL INFORMATION: Lower back pain status post mechanical fall/. TECHNIQUE: Axial CT images were obtained through the abdomen and pelvis without IV contrast. All CT scans at this location are performed using CT dose reduction for ALARA by means of automated exposure control. COMPARISON: CT dated 09/18/2020 and 01/08/2021 FINDINGS: LOWER CHEST: No significant abnormality. LIVER: No significant abnormality. GALLBLADDER: Cholecystectomy. BILE DUCTS: No significant abnormality. PANCREAS: No significant abnormality. SPLEEN: No significant abnormality. ADRENALS: No significant abnormality. RIGHT KIDNEY / URETER: No significant abnormality. LEFT KIDNEY / URETER: No significant abnormality. STOMACH / SMALL BOWEL: No significant abnormality. COLON: Diverticulosis without acute inflammation. APPENDIX: No significant abnormality. PERITONEUM: No free fluid. No free air. No fluid collection. LYMPH NODES: No significant adenopathy. AORTA / ARTERIES: No significant abnormality. IVC / VEINS: No significant abnormality. URINARY BLADDER: No significant abnormality. REPRODUCTIVE ORGANS: No significant abnormality. ADDITIONAL FINDINGS: None. SKELETAL SYSTEM: No acute osseous abnormality. Chronic bilateral L5 pars defects with minimal anterol isthesis of L5 on S1 which is unchanged. No acute abnormality of the lumbar spine. IMPRESSION: 1. No acute process in the abdomen or pelvis. 2. No acute abnormality of the lumbar spine. Signer Name: Jenny Mckay MD Signed: 06/27/2021 12:23 PM Workstation Name: [id number]
[2021-06-27] MEDS ORDERED: KETOROLAC 30 MG/1 ML INJ IV ONE (12:30)
[2021-06-27] MEDS ORDERED: LORazepam 2 MG/ML VIAL IV STA (12:31)
[2021-06-27 14:02] LABS: Bilirubin,Urine NEG (Negative); Blood,Urine MOD (Negative); Color,Urine Yellow (Yellow); Mucus,Urine 2+ /HPF; Protein,Urine <15 mg/dL mg/dL (Negative); Urobilinogen,Urine < 2.0 mg/dL (<2.0)
[2021-06-27 14:33] VITALS: BP 116/79
--- NOTE | 2021-06-29 14:10 | Electrocardiograph Report ---
Test Date: 2021-06-27 Test Time: 11:18:59 Pat Name: PA MUÑIZ Department: Room: Gender: M Senior Technical Analyst: ULYSSES : 1970 Requested By: RICARDO PRITCHARD Order Number: [id number] Reading MD: Kelsy Hicks Measurements Intervals [place] Rate: 62 P: 73 [place]: 158 QRS: 74 QRSD: 115 T: 54 QT: 454 QTc: 461 Interpretive Statements Sinus rhythm Normal ECG No previous ECG available for comparison Electronically Signed On 06-29-2021 14:09:57 EDT by Kelsy Hicks
== END 2021-06-27 14:52 | disposition home or self-care (01) ==
LOC: ED 09:25
DX: S09.90XA Unspecified injury of head, initial encounter (principal); M54.9 Dorsalgia, unspecified; R25.2 Cramp and spasm; F14.90 Cocaine use, unspecified, uncomplicated; Z88.8 Allergy status to other drugs, medicaments and biological substances; X58.XXXA Exposure to other specified factors, initial encounter; Y93.89 Activity, other specified; Y92.89 Other specified places as the place of occurrence of the external cause; Y99.8 Other external cause status
CPT/HCPCS: 36415; 70450; 71045; 74176; 80053; 81001; 82550; 83735; 84484; 85027; 85610; 93005; 96361; 96374; 96375; 99285; J1885; J2060; J2405; J3360; J7030; 80320; Q0162; G0480